=== PATIENT | female | born 1960 | race Caucasian/White ===

== ENCOUNTER 2023-04-24 15:05 | Emergency (ER) | payer BC, SELFPAY ==
[2023-04-24] VITALS (46 sets, daily range): BP systolic 93–144; BP diastolic 55–95; PULSE 73–92; RESP 14–24; TEMP 36.7–37.4; O2SAT 98–100
--- NOTE | ~2023-04-24 | XR_ITS ---
EXAM: XR foot RT min 3V DATE: 04/24/2023 19:38 HISTORY: infection, SWELLING, DRAINAGE . COMPARISON: None available. FINDINGS: Normal mineralization. No fracture or dislocation. No lytic or blastic lesion. Moderate sc attered degenerative change, mild Achilles and plantar enthesopathy. No erosion or periosteal change. Forefoot soft tissue swelling. IMPRESSION: No radiographic evidence of osteomyelitis. Reviewed, dictated and finalized at location K.
[2023-04-24 18:31] LABS: Hematocrit 42.8 % (37.0-47.0); Hemoglobin 14.6 g/dL (12.0-15.0); Mean Corpuscular HGB Conc 34.1 g/dl (32-36); Mean Corpuscular Hemoglobin 31.5 pg (26-34); Mean Corpuscular Volume 92.2 fl (80-100); Mean Platelet Volume 10.9 fl (7.4-10.4); Platelet Count Result 290 k/mm3 (150-375); Red Blood Count 4.64 M/mm3 (4.2-5.4); Red Cell Distribution Width 12.8 % (11.5-14.5); White Blood Count 23.1 K/mm3 (4.5-10.0)
[2023-04-24 18:39] LABS: Alanine Aminotransferase 22 U/L (6-35); Alkaline Phosphatase 96 U/L (38-126); Anion Gap 19 mmol/L (8-16); Aspartate Amino Transferase 25 U/L (14-36); Bilirubin,Total 1.6 mg/dL (0.2-1.3); Blood Urea Nitrogen 39 mg/dL (7-17); Calcium 9.2 mg/dL (8.4-10.2); Carbon Dioxide 18 mmol/L (22-30); Chloride 90 mmol/L (98-107); Estimated Glomerular Filt Rate 50; Glucose 259 mg/dL (65-110); Potassium 4.4 mmol/L (3.4-5.0); Sodium 127 mmol/L (137-145)
[2023-04-24 19:01] LABS: Lactic Acid Reflex 2.5 mmol/L (0.7-2.0)
--- NOTE | 2023-04-24 19:03 | ED.LOWEXIN ---
HPI - Extremity Injury (Lower) General Chief Complaint: Extremity Injury, Lower Stated Complaint: foot infection Time Seen by Provider: 04/24/23 18:49 History of Present Illness HPI Narrative: Patient is a 62-year-old female with history of diabetes here with a foot wound. Family notes that about a week ago they started noting her right foot was becoming red and she was complaining of pain. Patient's family notes that over the past 1 week it seems to have worsened. Today she finally agreed to going to her primary care's office where they took a look at her foot and referred her to the emergency department. They do note draining from the foot, redness and swelling. She denies fever or chills. She notes that pain is mild and only present when you manipulate the foot or apply a large amount of pressure to the wound. No known trauma to the foot. Related Data Home Medications Medication Instructions Recorded Confirmed atorvastatin 10 mg tablet 10 mg PO DAILY 11/20/22 11/20/22 dapagliflozin propanediol 5 mg 5 mg PO DAILY 11/20/22 11/20/22 tablet indapamide 2.5 mg tablet 2.5 mg PO DAILY 11/20/22 11/20/22 lisinopril 20 mg tablet 20 mg PO DAILY 11/20/22 11/20/22 metformin 500 mg tablet 500 mg PO BID 11/20/22 11/20/22 metoprolol succinate 100 mg 100 mg PO DAILY 11/20/22 11/20/22 tablet,extended release 24 hr prednisolone acetate 1 % eye 1 drp RIGHT EYE Q12H 11/20/22 11/20/22 drops,suspension Allergies Allergy/AdvReac Type Severity Reaction Status Date / Time No Known Allergies Allergy Unverified 04/24/23 14:46 Review of Systems Review of Systems: All systems reviewed & are unremarkable except as noted in HPI and below PMFSH Past Medical History Medical History Essential (primary) hypertension Hyperlipidemia 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 Social History Social History Smoking status: Never smoker Alcohol intake: never Substance use: never Substance use type: does not use Lack of Transportation: No Lack of Food: Never True Current Housing: I Have Housing Concerned About Future Housing: No Difficulty Paying Gas/Electric Bills: No Difficulty Paying for Meds: No Currently Unemployed: No Difficulty w/ Childcare or Family Care: No Living arrangements: with family Occupation/Education: occupation Gender identity (if verbalized by the patient): Female Sexual Orientation (if Verbalized by the Patient): Straight or Heterosexual Spiritual care concerns: No Exam Narrative: GENERAL: Well-appearing, well-nourished, and in no acute distress. HEAD: Normocephalic, atraumatic. EYES: PERRLA and EOMI. ENT: Nares clear. Mucous membranes moist. NECK: Supple. CHEST: Clear to auscultation. No respiratory distress. HEART: Regular rate and rhythm. Normal peripheral pulses. ABDOMEN: Soft, nontender, nondistended. EXTREMITIES: Normal range of motion. Edema and erythema extending to the ankle through the entire foot on the right side. 3 cm circular wound present to mid dorsum of the right foot with serosanguineous yellow-colored drainage. Purulence present between toe 3 and 4. Darkened discoloration present for toe 4. SKIN: Warm, dry, no rash. NEURO: No focal deficits. Alert and oriented x3. PSYCH: Normal mood and affect. Course Course Emergency Course: Chart review performed. Patient reportedly here for foot infection. Patient seen evaluated, concern for cellulitis with open wound over the dorsum of the right foot. She does have a dusky toe present on toe 4. Will start on antibiotics, told to remain NPO for now. Advised that she may require transfer. Spoke with Dr. Neff, recommends discussion with General surgery. Will speak with pre certification specialist general surgery. Will work on transfer, family agreeable to any site. Patient accepted for transf
[2023-04-24 19:29] LABS: Band Neutrophils Percent 1 % (0-6); Lymphocytes Absolute Manual 0.23 K/mm3 (1.1-4.5); Monocytes Absolute Manual 1.84 K/mm3 (0.1-0.90); Monocytes Percent Manual 8 % (3-9); Neutrophils Absolute Manual 21.02 K/mm3 (1.7-7.2); Neutrophils Percent Manual 90 % (46-73); Platelet Estimate Adequate (Adequate); Schistocytes None Seen (NORMAL); Total Cells Counted 100
[2023-04-24 19:32] LABS: Erythrocyte Sedimentation Rate 31 mm/hr (0-20)
[2023-04-24] MEDS: CEFEPIME 2 GM/NS 50 ML 2 GM/50 ML BAG IVPB (19:37)
[2023-04-24 19:46] LABS: CRP 43.2 mg/dL (<1.0)
[2023-04-24 19:57] LABS: Hemoglobin A1C 8.6 % (<5.7)
[2023-04-24] MEDS: LACTATED RINGERS 1,000 ML 999 ML IV CONT (21:20)
--- NOTE | 2023-04-24 21:28 | PC.NURSE ---
Report given to KENIA Man at [facility]. Room 515
[2023-04-24 21:44] LABS: Reflex Lactic Acid Yes or No Add Lactic
--- NOTE | 2023-04-24 22:26 | PC.NURSE ---
Large golf ball sized diabetic ulcer to top of right foot, and smaller quarter sized ulcer to bottom of foot near fourth toe.
[2023-04-24 22:37] LABS: Lactic Acid 3.1 mmol/L (0.7-2.0)
[2023-04-25] VITALS: PULSE 79; RESP 18
[2023-04-25 00:01] VITALS: BP 136/71; PULSE 78; RESP 18
== END 2023-04-25 00:18 | disposition short-term general hospital (02) ==
PROVIDERS: Physician Assistant; Emergency Provider Student in an Organized Health Care Education/Training Program; PCP Family Medicine
DX: E11.628 Type 2 diabetes mellitus with other skin complications (principal); L03.115 Cellulitis of right lower limb; L98.8 Other specified disorders of the skin and subcutaneous tissue; D72.829 Elevated white blood cell count, unspecified; I10 Essential (primary) hypertension; E11.3519 Type 2 diabetes mellitus with proliferative diabetic retinopathy with macular edema, unspecified eye; E78.5 Hyperlipidemia, unspecified; Z79.84 Long term (current) use of oral hypoglycemic drugs
CPT/HCPCS: 36415; 73630; 80053; 83036; 83605; 85025; 85652; 86140; 87040; 96365; 96366; 96367; 99285; J0692; J3370; J7120

== ENCOUNTER 2023-06-07 15:28 | Emergency (ER) | payer BC, SELFPAY ==
--- NOTE | ~2023-06-07 | XR_ITS ---
EXAMINATION: XR chest PICC line DATE: 06/07/2023 18:10 INDICATION: PICC line assessment TECHNIQUE: frontal view of the chest was obtained. COMPARISON: None FINDINGS: Right upper extremity peripherally inserted central venous catheter (PICC) tip at the cavoatrial tamela ction. No focal airspace opacities, pulmonary edema, pleural effusion or pneumothorax. The cardiomedi astinal silhouette is within normal limits for AP technique. Visualized bones and soft tissues are un remarkable. IMPRESSION: 1. Right PICC line tip at the superior cavoatrial junction. No acute cardiopulmonary disease. Reviewed, dictated and finalized at location A. ASSESSOR IMPRESSION: 1. Right PICC line tip at the superior cavoatrial junction. No acute cardiopulm onary disease.
[2023-06-07 15:42] VITALS: BP 119/88; PULSE 87; RESP 16; TEMP 37.1; O2SAT 100
--- NOTE | 2023-06-07 17:55 | PC.NURSE ---
Patient to the ED with complaints of PICC line not working.
--- NOTE | 2023-06-07 19:45 | ED.GENADULT ---
HPI - General Adult General Chief complaint: Unspecified Stated complaint: picc line problem Time Seen by Provider: 06/07/23 19:10 Source: patient and family Limitations: no limitations History of Present Illness HPI narrative: Patient is a 63-year-old female presents to the emergency department for PICC line dysfunction. Patient states she has home healthcare nurse regularly in his own antibiotics for a right foot infection through the PICC line and she is getting his antibiotics every 6 hours and received a dose at midnight in addition to 6:00 a.m. however she missed her noon dose as they were unable to flush the PICC line prompting her to come in for further evaluation. Patient has been on antibiotics for the past 1 week and her foot infection appears to be improving the patient is fine with Podiatry your patient so concern is the dysfunction of the PICC line. Significant other notes that he forgot to put heparin and after using it most recently. patient otherwise denies any complaints at this time, knows that she feels well, denies chest pain, shortness of breath, cough, fever. Patient is having her right foot infection evaluated daily by her home healthcare nurse and is overall improving. Related Data Home Medications Medication Instructions Recorded Confirmed atorvastatin 10 mg tablet 10 mg PO DAILY 11/20/22 05/13/23 dapagliflozin propanediol 5 mg 5 mg PO DAILY 11/20/22 05/13/23 tablet indapamide 2.5 mg tablet 2.5 mg PO DAILY 11/20/22 05/13/23 lisinopril 20 mg tablet 20 mg PO DAILY 11/20/22 05/13/23 metformin 500 mg tablet 500 mg PO BID 11/20/22 05/13/23 metoprolol succinate 100 mg 100 mg PO DAILY 11/20/22 05/13/23 tablet,extended release 24 hr prednisolone acetate 1 % eye 1 drp RIGHT EYE Q12H 11/20/22 05/13/23 drops,suspension Allergies Allergy/AdvReac Type Severity Reaction Status Date / Time No Known Allergies Allergy Verified 05/13/23 14:13 Review of Systems Review of Systems: A 10 system review of systems was completed on the patient and is negative except for what is stated in the HPI. Nursing and ancillary documentation was reviewed. 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 Social History Social History Smoking status: Never smoker Alcohol intake: never Substance use: never Substance use type: does not use Lack of Transportation: No Lack of Food: Never True Current Housing: I Have Housing Concerned About Future Housing: No Difficulty Paying Gas/Electric Bills: No Difficulty Paying for Meds: No Currently Unemployed: No Difficulty w/ Childcare or Family Care: No Living arrangements: with family Occupation/Education: occupation Gender identity (if verbalized by the patient): Female Sexual Orientation (if Verbalized by the Patient): Straight or Heterosexual Spiritual care concerns: No Comments At time of signature, I have reviewed and agree with nursing past medical, surgical, social and family history unless otherwise noted. Please see the nursing chart for further information. There is no relevant family history pertinent to the presenting complaint. Exam Narrative: CONST: No acute distress. Well nourished. HENMT: Head is normocephalic and atraumatic. EYES: No conjunctival icterus, injection, or pallor. NECK: No JVD. RESP: Able to speak in full sentences. Normal respiratory effort. CTAB. CARDIO: Regular rate. Regular rhythm. 2+ radial pulses bilaterally. Right upper extremity PICC line in place without surrounding erythema and no tenderness to palpation.. GI: Nondistended. SKIN: No rashes or lesions noted on exposed skin. NEURO: Oriented x3. EXTREM/MSK/BACK: Moves all [address] on r
--- NOTE | 2023-06-07 19:50 | PC.NURSE ---
This RN was able to flush patient's PICC line. Patient's family states he might have forgotten to flush with heparin after patient's antibiotic dose this morning. Patient and family educated on importance of heparin locking the PICC line after use.
[2023-06-07 20:11] VITALS: BP 136/90; PULSE 93; RESP 18; TEMP 37; O2SAT 98
== END 2023-06-07 20:13 | disposition home or self-care (01) ==
PROVIDERS: Emergency Provider Student in an Organized Health Care Education/Training Program; PCP Family Medicine
DX: Z45.2 Encounter for adjustment and management of vascular access device (principal); I10 Essential (primary) hypertension; E78.5 Hyperlipidemia, unspecified; E11.9 Type 2 diabetes mellitus without complications
CPT/HCPCS: 99283; J1642

== ENCOUNTER 2024-10-18 12:49 | Inpatient (IN) | payer BC, SELFPAY ==
[2024-10-18] VITALS (46 sets, daily range): BP systolic 81–144; BP diastolic 59–91; PULSE 92–107; RESP 12–22; TEMP 36–37.2; O2SAT 99–100; BMI 25.9
--- NOTE | ~2024-10-18 | US_ITS ---
EXAMINATION: US arterial duplex LE DATE: 10/20/2024 17:08 INDICATION: Peripheral vascular disease with foot wounds TECHNIQUE: Multiple grayscale and Doppler ultrasound images of the arteries at the bilateral lower li mbs were obtained. COMPARISON: None FINDINGS: Normal triphasic waveforms with brisk systolic upstrokes at the right common femoral, profunda femora l, superficial femoral, popliteal and peroneal arteries. There are systolic upstrokes at the right po sterior tibial artery. No evident vascular flow identified in the distal right posterior tibial arter y or right dorsalis pedis artery. Normal triphasic waveforms with brisk systolic upstrokes at the left common femoral, profunda femoral , superficial femoral, popliteal, posterior tibial and dorsalis pedis arteries. IMPRESSION: 1. No discernible flow on color Doppler at the right posterior tibial and dorsalis pedis arteries. Tr iphasic waveforms with brisk systolic upstrokes at the remaining arteries in the right lower limb. 2. Triphasic waveforms with brisk systolic upstrokes throughout the arteries of the left lower limb. Reviewed, dictated and finalized at location A. IMPRESSION: 1. No discernible flow on color Doppler at the right posterior tibial and dorsa lis pedis arteries. Triphasic waveforms with brisk systolic upstrokes at the re maining arteries in the right lower limb. 2. Triphasic waveforms with brisk systolic upstrokes throughout the arteries of the left lower limb.
--- NOTE | ~2024-10-18 | US_ITS ---
EXAMINATION:US venous doppler LE BI INDICATION:Pulmonary embolism TECHNIQUE: Multiple grayscale, color flow and Doppler images of the right and left lower extremity de ep venous systems were obtained and reviewed. COMPARISON:No prior studies for comparison. FINDINGS: The common femoral, superficial femoral and popliteal veins demonstrate normal respiratory variation, augmentation and compressibility. Color flow is also seen within the posterior tibial, pe roneal, greater saphenous and profunda veins. IMPRESSION: 1: No lower extremity deep venous thrombosis. Reviewed, dictated and finalized at location A.
--- NOTE | ~2024-10-18 | CT_ITS ---
EXAMINATION: CT brain wo con DATE: 10/18/2024 14:29 INDICATION: sepsis, ams . TECHNIQUE: Computed tomography (CT) of the head was performed with intravenous contrast. The mA was a djusted according to patient size. Iterative reconstruction technique was employed. The dose-length p roduct was 681.00 mGy-cm. COMPARISON: None. FINDINGS: No acute intracranial hemorrhage or extra-axial fluid collection. No hydrocephalus, mass, or herniation. No acute ischemic infarct. Unremarkable dural venous sinus attenuation. No acute osseous abnormality. Right mastoid opacification, the remaining aerated spaces are clear. Moderate atrophy and chronic white matter change. Atherosclerotic intracranial calcification. Bilater al lens replacements. Focal old right cerebellar infarct. Left thalamic and bilateral basal ganglia l acunar infarcts IMPRESSION: No acute intracranial process. Right mastoid opacification, may represent effusion versus exudate. Correlate for clinical findings o f mastoiditis. Reviewed, dictated and finalized at location K. IMPRESSION: No acute intracranial process. Right mastoid opacification, may represent effusion versus exudate. Correlate f or clinical findings of mastoiditis.
--- NOTE | ~2024-10-18 | XR_ITS ---
EXAMINATION: XR chest 1V portable Exam Date/Time: 10/18/2024 13:50 CDT HISTORY: ams, sepsis Comparison: 06/07/2023. RESULT: Lines, tubes, and devices: None. Lungs and pleura: Clear. Cardiomediastinal silhouette: Stable. Other: No acute osseous or upper abdominal finding. IMPRESSION: No acute cardiopulmonary process. Reviewed, dictated and finalized at location K.
--- NOTE | ~2024-10-18 | US_ITS ---
EXAMINATION: US abdomen limited DATE: 10/18/2024 16:33 INDICATION: Abnormal findings on prior CT. TECHNIQUE: Multiple grayscale and Doppler ultrasound images of limited portions of the abdomen were o btained. COMPARISON: CT abdomen pelvis, same date. FINDINGS: Pancreas poorly visualized. The liver is normal with normal echogenicity and echotexture. N o surface nodularity. Normal hepatopetal flow in the main portal vein. Irregular appearing echogenic material in the dependent gallbladder, likely representing sludge. Gallbladder wall thickening to 4 m m. The common bile duct measures 3 mm. There was no sonographic Cueva sign. IMPRESSION: Biliary sludge with gallbladder wall thickening. Negative sonographic Cueva sign. Reviewed, dictated and finalized at location K. IMPRESSION: Biliary sludge with gallbladder wall thickening. Negative sonographic Cueva si gn.
--- NOTE | ~2024-10-18 | XR_ITS ---
EXAM: XR foot LT 2V DATE: 10/18/2024 18:33 HISTORY: foot wounds/ulcerations . COMPARISON: 05/04/2024. FINDINGS: Subluxation/dislocation at the second MTP joint. Extensive erosion of the distal fourth an d fifth metatarsals and proximal aspect of the fourth proximal phalanx. Periarticular erosions at the second and third MTP joints. Scattered degenerative changes. Forefoot soft tissue swelling. IMPRESSION: Findings suspicious for extensive forefoot osteomyelitis and septic arthritis involving the second th rough fourth rays. Reviewed, dictated and finalized at location K. IMPRESSION: Findings suspicious for extensive forefoot osteomyelitis and septic arthritis i nvolving the second through fourth rays.
--- NOTE | ~2024-10-18 | CT_ITS ---
EXAMINATION: CT cervical spine wo con DATE: 10/18/2024 14:29 INDICATION: sepsis, ams TECHNIQUE: Computed tomography (CT) of the cervical spine was performed without intravenous contrast. Automated exposure control and iterative reconstruction technique were employed. The dose-length pro duct was 261.44 mGy-cm. COMPARISON: None. FINDINGS: Vertebral Body Alignment: Intact. Craniocervical and atlantoaxial alignment: Moderate degenerative change. Alignment intact. Osseous structures/fracture: No evidence of a lytic or blastic process in the visualized spine. No e vidence of acute fracture. Butterfly vertebral bodies at multiple levels. Cervical soft tissues: The paraspinal soft tissues planes are maintained. Degenerative changes: Degenerative changes, without severe neural foraminal or central canal narrowin g. IMPRESSION: No acute fracture or traumatic malalignment in the cervical spine. Reviewed, dictated and finalized at location K.
--- NOTE | ~2024-10-18 | CT_ITS ---
EXAMINATION: CTA chest PE abdomen pel DATE: 10/18/2024 14:31 INDICATION: tachycardic, septic; ams, covered in stool TECHNIQUE: Computed tomography angiography (CTA) of the chest was performed with 100 mL Omnipaque-350 intravenous contrast timed to evaluate the pulmonary arteries, followed by portal venous phase imagi ng of the abdomen and pelvis. Coronal maximum intensity projection 3D-reconstructions were created by the technologist. The dose-length product (DLP) was 1416.42 mGy-cm. Automated exposure control and i terative reconstruction technique were employed. COMPARISON: None. FINDINGS: CHEST: Lung parenchyma and airways: Clear. Pleura: Unremarkable. Thoracic inlet, axillae and chest wall: No thyroid or soft tissue mass. Thoracic aorta: The ascending thoracic aorta measures up to 4.2 cm in diameter. Moderate atherosclero tic calcifications. Mediastinum: Normal. Patulous esophagus, with moderate mid and lower esophageal wall thickening. Heart and pericardium: Cardiomegaly. Coronary artery calcifications: Absent. Thoracic bones: No acute osseous finding. Butterfly vertebral bodies at multiple levels. Pulmonary arteries: Study quality: Adequate. No acute pulmonary emboli detected. Thin, nonocclusive e ccentric weblike defects in the right interlobar pulmonary artery. ABDOMEN/PELVIS: Liver: Normal. Biliary/Gallbladder: Gallbladder is distended, with wall hyperemia. No bile duct dilation. Pancreas: No mass or duct dilation. Spleen: Peripheral, somewhat wedge-shaped perfusion defects in the inferior spleen. Adrenals:No mass. Kidneys: No suspicious mass, obstructing stone, or hydronephrosis. 2.0 cm indeterminate density left upper pole lesion. GI tract: Moderate gastric wall edema. The rectum is dilated to 5.5 cm by formed stool, without surro unding inflammatory change or wall thickening. No small bowel dilation. Appendix is not confidently v isualized. No pericecal inflammatory change. Mesentery/Peritoneum: No ascites, mass, or free air. Retroperitoneum: No mass. Atherosclerotic calcifications of intra-abdominal arterial vessels. Pelvis: Normal ovaries and uterus. Zuniga catheter terminates in the urinary bladder. Moderate urinary bladder wall thickening and mucosal enhancement.. Soft Tissues: Soft tissues and body wall unremarkable. Abdominopelvic bones: No acute osseous finding. 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 IMPRESSION: No CT evidence of acute pulmonary embolus. Chronic pulmonary embolism in the right interlobar pulmonary artery. Moderate esophagitis. Ascending thoracic aortic ectasia, measuring up to 4.2 cm. Mild gastritis. Peripheral, somewhat wedge-shaped splenic hypodensities may represent splenic infarcts. No embolic so urce is detected. Indeterminate 2.0 cm left upper pole renal lesion, recommend nonemergent, outpatient CT or MRI with a nd without contrast for further evaluation. Gallbladder hydrops with wall hyperemia, correlate with biliary labs and symptoms of right upper quad rant pain. Cystitis. Possible mild fecal impaction. Reviewed, dictated and finalized at location K. IMPRESSION: No CT evidence of acute pulmonary embolus. Chronic pulmonary embolism in the right interlobar pulmonary artery. Moderate esophagitis. Ascending thoracic aortic ectasia, measuring up to 4.2 cm. Mild gastritis. Peripheral, somewhat wedge-shaped splenic hypodensities may represent splenic i nfarcts. No embolic source is detected. Indeterminate 2.0 cm left upper pole renal lesion, recommend nonemergent, outpa tient CT or MRI with and without contrast for further evaluation. Gallbladder hydrops with wall hyperemia, correlate with biliary labs and sympto ms of right upper quadrant pain. Cystitis. Possible mild fecal impaction.
--- NOTE | ~2024-10-18 | CT_ITS ---
CTA brain Ordering provider: Martín Gilman PA-C History: . ams . Comparison: 10/08/[address] brain. Technique: CT angiogram head was performed following timed intravenous injection of contrast. Thin sl ice axial images and reformatted coronal images were obtained. Three dimensional reformatted images o f the brain were also obtained using a [employer] workstation. DLP: 1048 mGy-cm No CTA examination of the neck was included on the examination. FINDINGS: HEAD: --ANTERIOR AND MIDDLE CEREBRAL ARTERIES AND BRANCHES: Normal caliber and contour. --INTERNAL CAROTID ARTERIES: The right internal carotid artery is diminutive in comparison to the lef t. Moderate atheromatous disease bilaterally resulting in mild stenosis but no occlusion. --BASILAR ARTERY AND BRANCHES: Normal caliber and contour. No atheromatous disease. --POSTERIOR CEREBRAL ARTERIES: Normal caliber and contour --POSTERIOR COMMUNICATING ARTERIES: Not well visualized likely related to congenital absence or small size. --ANEURYSM: None visualized. --BRAIN: The ventricles are enlarged. The dilatation of the ventricles is proportional to the degree of sulcal prominence, not uncommon in the senescent brain. Decreased attenuation is identified within the periventricular white matter, likely secondary to micr ovascular ischemic disease, advanced disease in a patient of this age. There is no mass, mass effect or midline shift. There is no abnormal extra-axial fluid collection or intracranial hemorrhage. Visualized paranasal sinuses are clear. The mastoid air cells are well aerated. No acute displaced fractures within the overlying cranium. NECK: No CTA of the neck was requested IMPRESSION: Moderate calcified atheromatous disease is identified within the bilateral intracranial internal falk tid arteries, resulting in mild stenosis without occlusion. Reviewed, dictated and finalized at location A. IMPRESSION: Moderate calcified atheromatous disease is identified within the bilateral intr acranial internal carotid arteries, resulting in mild stenosis without occlusio n.
--- NOTE | ~2024-10-18 | XR_ITS ---
EXAMINATION: XR foot RT 2V DATE: 10/19/2024 13:53 INDICATION: Right foot wounds TECHNIQUE: Dorsoplantar and lateral views of the right foot were obtained. COMPARISON: 05/04/2024 FINDINGS: Deformities at the third and fourth toes with chronic widening of the third and fourth metatarsophala ngeal joints and chronic osteolysis with peripheral corticated margins at the heads of the third and fourth metatarsals and at the third and fourth proximal phalanges likely sequela of chronic osteomyel itis. Bone alignment is normal. No new erosions or osteolysis. Mild polyarticular osteoarthritis at m ultiple joints in the right mid and forefoot. Small Achilles and plantar calcaneal spurs. Tiny foreig n body along the skin surface at the plantar aspect of the base of the right second toe. Diffuse mild soft tissue swelling. No soft tissue gas. IMPRESSION: 1. Deformities with chronic osteolysis centered at the right third and fourth metatarsophalangeal jeanette nts consistent with likely sequela of chronic tonsillitis. No evident acute osteomyelitis or other ac kristopher osseous abnormality. Joints. 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 3. Tiny foreign body at a near the skin surface at the plantar aspect of the base of the second toe. Reviewed, dictated and finalized at location B. IMPRESSION: 1. Deformities with chronic osteolysis centered at the right third and fourth m etatarsophalangeal joints consistent with likely sequela of chronic tonsillitis . No evident acute osteomyelitis or other acute osseous abnormality. Joints. Mi ld polyarticular osteoarthritis throughout the right foot. 3. Tiny foreign body at a near the skin surface at the plantar aspect of the ba se of the second toe.
--- NOTE | 2024-10-18 12:55 | ECG_ITS ---
Test Date: 2024-10-18 13:42:54 Measurements Intervals [place] Rate: 98 P: 41 RI: 166 QRS: -27 QRSD: 90 T: 32 QT: 373 QTc: 478 Interpretive Statements SINUS RHYTHM BORDERLINE LEFT AXIS DEVIATION [QRS AXIS < -20] NONSPECIFIC ST ABNORMALITY ARTIFACT LIMITS INTERPRETATION ABNORMAL ECG Electronically Signed On 10-18-2024 14:26:50 CDT by David Toro M.D.
--- OUTSIDE RECORDS SUMMARY | 2024-10-18 12:56 | XMS_ITS | Clinical Summary ---
Author Organization [facility] Address [address] [place] [address] Care Team Providers Care Director Corporate Communications Name Role Phone Cornelio Valdez MD Primary Care Provider [phone] [facility],non-owned Affiliates and Associated Physician Practices is amultiple site organization consisting of ambulatory clinics and hospital sitesin [place], [place], [place] and [place]. This disclosure is being madepursuant to the Care Everywhere program and may not contain all information available regarding this patient. Last updated 18.[facility] Allergies No known active allergies Medications * Be aware that medications may not be up to date on this document. Alwaysverify current medications with the patient. Medication Sig Dispensed Refills Start Date End Date Status atorvastatin (Lipitor) 10 MG tabletIndications:Hyp erlipidemia Take 1 tablet by mouth at bedtime Reasons: High Amount of Fats in the Blood Active dapagliflozin propanediol (Farxiga) 5 MG tabletIndications:Typ e 2 Diabetes Mellitus Take 1 tablet by mouth every morning Reasons: Type 2 Diabetes Active indapamide (Lozol) 2.5 MG tabletIndications:Hyp ertension Take 1 tablet by mouth once daily Reasons: High Blood Pressure Disorder Active lisinopril (Prinivil; Zestril) 20 MG tabletIndications:Hyp ertension Take 1 tablet by mouth once daily Reasons: High Blood Pressure Disorder Active metFORMIN (Glucophage) 500 MG tabletIndications:Typ e 2 Diabetes Mellitus Take 1 (one) tablet by mouth 2 times daily with morning and evening meal Reasons: Type 2 Diabetes Active metoprolol succinate XL 24hr (Toprol XL) 50 MG tabletIndications:Hyp ertension Take 2 (two) tablets by mouth once daily Reasons: High Blood Pressure Disorder 07/22/2020 Active prednisoLONE acetate (prednisoLONE Acetate P-F) 1 % ophthalmic suspension Instill 1 (one) drop into right eye 2 times daily Active metroNIDAZOLE (Flagyl) 500 MG tabletIndications:INF ECTION Take 500 mg by mouth 3 times daily. RX # [id number] Indications: INFECTION 07/01/2023 Active cephalexin (Keflex) 500 MG capsuleIndications:Corbin ne Infection Take 500 mg by mouth 3 times daily. Indications: Bone Infection 07/11/2023 Active Active Problems Problem Noted Date Diagnosed Date Cellulitis of right foot 05/27/2023 Right foot infection 04/24/2023 Immunizations Name Administration Dates Next Due INFLUENZA VACCINE, QUADR. (F LUZONE; FLULAVAL; FLUARIX; AFLURIA QUADRIVALENT; 6MO+), 0.5 ML (IIV4) 04/29/2023 Social History Tobacco Use Types Packs/Day Years Used Date Smoking Tobacco: Never Smokeless Tobacco: Never Tobacco Cessation:Counseling Given: Not Answered Alcohol Use Standard Drinks/Week Comments Not Currently 0 (1 standard drink = 0.6 oz pur e alcohol) OASIS D0700: Social Isolation Answer Da te Recorded Frequency of experiencing loneliness or isolatio n Never 08/20/2023 OASIS A1250: Transportation Answer Date Recorded Lack of Transportation (Medical) No 08/20/2023 Lack of Transportation (Non-Medical) No 08/20/2023 Patient Unable or Declines to Respond No 08/20/2023 OASIS B1300: Health Literacy Answer Torsten e Recorded Frequency of needing help to read materials from doctor or pharmacy Sometimes 08/20/2023 AUDIT-C Answer Date Recorded Q1: How often do you have a drink containing alc ohol? Monthly or less 05/27/2023 Q2: How many drinks containi ng alcohol do you have on a typical day when you are drinking? 1 or 2 05/27/2023 Q3: How often do you have si x or more drinks on one occasion? Never 05/27/2023 Overall Financial Resource Strain (CARDIA) Answe r Date Recorded How hard is it for you to pa y for the very basics like food, housing, medical care, and heating? Not hard at all 05/28/2023 [facility] [place] [facility] - Occupational Stress Questionnaire Answer Date Recorded Do you feel stress - tense, restless, nervous, or anxious, or unable to sleep at night because your mind is troubled all the time - these days? Only a little 05/28/2023 Hunger Vital Sign Answer Date Recorded Within the past 12 months, y ou worried that your food would run out before you got the money to buy more. Never true 05/28/20 23 Within the past 12 months, t he food you bought just didn't last and you didn't have money to get more. Never true 05/28/2023 PRAPARE - Transportation Answer Date Re corded In the past 12 months, has l ack of transportation kept you from medical appointments or from getting medications? No 01/2023 In the past 12 months, has l ack of transportation kept you from meetings, work, or from getting things needed for daily living? No 05/28/2023 Housing Stability Vital Sign Answer Torsten e Recorded In the last 12 months, was t here a time when you were not able to pay the mortgage or rent on time? No 05/28/2023 In the last 12 months, how many places have you lived? 1 05/28/2023 In the last 12 months, was t here a time when you did not have a steady place to sleep or slept in a usp (including now)? No 05/28/2023 Sex and Gender Information Value Date Recorded Sex Assigned at Not on file Gender Identity Not on file Sexual Orientation Not on file Last Filed Vital Signs Vital Sign Reading Time Taken Comments Blood Pressure 124/72 08/16/2023 10:03 AM SHOT BAGGER Pulse 76 08/16/2023 10:03 AM SHOT BAGGER Temperature 36.4 C (97.5 F) 08/16/2023 10:03 AM SHOT BAGGER Respiratory Rate 16 08/16/2023 10:03 AM SHOT BAGGER Oxygen Saturation 99% 08/16/2023 10:03 AM SHOT BAGGER Inhaled Oxygen Concentration - - Weight 83.9 kg (185 lb) 05/10/2023 1:03 PM CDT Height 149.9 cm (4' 11.02 ) 05/28/2023 4:[address] Body Mass Index 37.37 05/10/2023 1:03 PM CDT Plan of Treatment Health Maintenance Due Date Last Done Comments COLOGUARD (AGES 45-75) - COL ON CA SCREENING 1960 COLON MONITORING 1960 COLONOSCOPY - COLON CA SCREENING 1960 CT COLONOGRAPHY - COLON CA SCREENING 1960 Colorectal Cancer Screening 1960 FIT - COLON CA SCREENING 1960 FLEX SIG - COLON CA SCREENING 1960 MAMMOGRAM 1960 PAP SMEAR 1960 HIV SCREENING 1975 HEPATITIS C SCREENING 06/01/1978 DTAP/TDAP/TD VACCINES (1 - Tdap) 1979 PNEUMOCOCCAL VACCINE 50+ (1 of 1 - PCV) 2010 ZOSTER VACCINE (1 of 2) 2010 Respiratory Syncytial Virus (RSV) Vaccine Pt: or over 60 yrs (1 - Risk 60-74 years 1-dose series) 2020 COVID-19 VACCINE (4 - 2023-2 5 season) 2024 06/28/2021, 11/09/2020, 10/12/2020 INFLUENZA VACCINE (#1) 2024 , 04/26/2022, 06/09/2020 DEPRESSION SCREENING 07/22/2024 HEPATITIS B VACCINE Aged Out No longe r eligible based on patient's age to complete this topic HIB VACCINE Aged Out No longer eligi ble based on patient's age to complete this topic HPV VACCINE Aged Out No longer eligi ble based on patient's age to complete this topic MENINGOCOCCAL (Group B) VACCINE SHARED DECISION-MAKING Aged Out No longer eligible based on patient's age to complete this topic MENINGOCOCCAL GROUPS A/C/Y/W VACCINE Aged Out No longer eligible b ased on patient's age to complete this topic PNEUMOCOCCAL VACCINE Aged Out No long er eligible based on patient's age to complete this topic Medical Devices Implanted Type Area Locket Maker Device Identifier Shelf Expiration Date Model / Serial / Lot Graft Skn Surgiclose 38sq Cm Nehemiah Omega3 Implanted:Qty: 1 on 05/29/2023 by Glenda Ceron DPM at [facility] Right: Foot [employer] 08/22/2025 [id number] / / [id number] X Kerecis Omega3 Surgibind Fenestrated Implanted:Qty: 1 on 05/29/2023 by Glenda Ceron DPM at [facility] Right: Foot 11/19/2024 [id number] / / [id number] B Advance Directives * Full Code (Latest Code Status on File) Date Activated Date Inactivated Comments 05/27/2023 8:46 PM 05/31/2023 6:48 PM * Full Code Date Activated Date Inactivated Comments 05/11/2023 3:39 PM 05/27/2023 5:44 PM To update t he patient's code status, place a code status order. Do not modify or discontinue any currently active code status orders. * Full Code Date Activated Date Inactivated Comments 04/25/2023 3:33 AM 05/08/2023 10:50 PM Care Teams Director Corporate Communications Relationship Specialty Start Date End Date Cornelio Valdez MD [address] [place] [id number] PCP - General Family Medicine 04/25/23
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
[2024-10-18] MEDS: SODIUM CHLORIDE 0.9% IV 1,000 ML 999 ML IV CONT ×2 (13:09→13:30)
[2024-10-18] MEDS: CEFEPIME 2 GM/NS 50 ML 2 GM/50 ML BAG IVPB (13:10)
[2024-10-18 13:26] LABS: Color Urine Light Yellow (Yellow)
[2024-10-18 13:27] LABS: Add Urine Microscopic? YES; Appearance Urine Turbid (Clear)
[2024-10-18 13:28] LABS: Amorphous Sediment Urine Heavy; Bacteria Urine Unable to determine /hpf; Mucus Urine Heavy /lpf; Squamous Epithelial Cell Urine Few /hpf (Few); WBC Urine >100 /hpf (0-3)
[2024-10-18 13:29] LABS: Triple Phosphate Crystal Urine Present /hpf
[2024-10-18 13:35] LABS: Basophils Absolute Auto 0.1 K/mm3 (0.0-0.1); Basophils Percent Auto 0.3 % (0.2-1.2); Eosinophils Absolute Auto 0.2 K/mm3 (0-0.3); Eosinophils Percent Auto 1.1 % (0-4.4); Hematocrit 40.5 % (37.0-47.0); Hemoglobin 12.2 g/dL (12.0-15.0); Immature Granulocyte Absolute 0.11 K/mm3 (0.00-0.031); Immature Granulocyte Percent A 0.7 % (0-0.5); Lymphocytes Absolute Auto 1.24 K/mm3 (0.9-3.2); Lymphocytes Percent Auto 8.2 % (18.3-44.2); Mean Corpuscular HGB Conc 30.1 g/dl (32-36); Mean Corpuscular Hemoglobin 22.2 pg (26-34); Mean Corpuscular Volume 73.8 fl (80-100); Mean Platelet Volume 9.3 fl (7.4-10.4); Monocytes Absolute Auto 0.8 K/mm3 (0.1-0.6); Monocytes Percent Auto 5.2 % (2.6-8.5); Neutrophils Absolute Auto 12.7 K/mm3 (1.3-6.7); Neutrophils Percent Auto 84.5 % (45.5-73.1); Platelet Count Result 500 k/mm3 (150-375); Red Blood Count 5.49 M/mm3 (4.2-5.4); Red Cell Distribution Width 18.2 % (11.5-14.5); White Blood Count 15.1 K/mm3 (4.5-10.0)
[2024-10-18 13:44] LABS: Lactic Acid Reflex 2.4 mmol/L (0.7-2.0)
[2024-10-18 13:46] LABS: Acetaminophen < 10 ug/mL (10-30); Ammonia < 9 umol/L (9-30); Creatine Kinase 57 U/L (30-135); Ethanol < 10 mg/dL (<10); Magnesium 2.2 mg/dL (1.6-2.3); Salicylate < 1.0 mg/dL (2-20)
[2024-10-18 13:46] LABS: Glucose Point of Care 142 mg/dl (65-105)
[2024-10-18 13:47] LABS: INR 1.3; Partial Thromboplastin Time 28.7 Seconds (22.3-36.8); Prothrombin Time 17.2 Seconds (11.1-14.7)
[2024-10-18 13:49] LABS: Alanine Aminotransferase 11 U/L (6-35); Albumin Level 3.4 g/dL (3.5-5.1); Alkaline Phosphatase 106 U/L (38-126); Anion Gap 13 mmol/L (4-12); Aspartate Amino Transferase 18 U/L (14-36); Bilirubin,Total 0.9 mg/dL (0.2-1.3); Blood Urea Nitrogen 26 mg/dL (7-17); Calcium 9.2 mg/dL (8.4-10.2); Carbon Dioxide 21 mmol/L (22-30); Chloride 100 mmol/L (98-107); Estimated CRCL calculation 50 ml/min; Estimated Glomerular Filt Rate > 60; Glucose 163 mg/dL (65-110); Lipase 313 U/L (23-300); Potassium 4.2 mmol/L (3.4-5.0); Sodium 134 mmol/L (137-145)
[2024-10-18 13:57] LABS: Troponin I < 0.012 ng/mL (0.000-0.034)
[2024-10-18 14:07] LABS: Crenated RBC 2+; Platelet Estimate Increased (Adequate); Schistocytes None Seen
[2024-10-18 14:10] LABS: CRP 19.1 mg/dL (<1.0)
[2024-10-18 14:29] LABS: Influenza A QL RT-PCR Negative (Negative); Influenza B QL RT-PCR Negative (Negative); RSV RNA, RT-PCR Negative (Negative); SARS-CoV-2 RNA PCR Negative (Negative)
[2024-10-18] MEDS: VANCOMYCIN 1,750 MG/NS 500 ML 1,750 MG/500 ML BAG 250 MG IVPB (14:33)
[2024-10-18 15:31] LABS: Reflex Lactic Acid Yes or No Add Lactic
[2024-10-18 16:04] LABS: Barbiturate Screen Urine Negative (Negative); Benzodiazepines Screen Urine Negative (Negative)
[2024-10-18] MEDS: PANTOPRAZOLE 40 MG TABLET PO (16:10)
[2024-10-18 16:18] LABS: Amphetamine Screen Urine Negative (Negative); Cannabinoid Screen Urine Negative (Negative); Cocaine Screen Urine Negative (Negative); Methadone Screen Urine Negative (Negative); Opiate Screen Urine Negative (Negative); Phencyclidine Screen Urine Negative (Negative)
[2024-10-18 17:15] LABS: Lactic Acid 1.6 mmol/L (0.7-2.0)
[2024-10-18 18:40] LABS: Hemoglobin A1C 8.2 % (<5.7)
--- NOTE | 2024-10-18 21:36 | ADMGEN ---
This patient, Ann Ovalles, was admitted to Medical Room 344-01. Patient/family oriented to hospital policies and general routines including ID bracelet, bed and alarms, visiting hours, pain management, procedures, bathroom and other care routines, personal items, smoking policy, room service/diet, and visiting hours. Information on how to activate the Rapid Response Team has been discussed. Patient/Family are encouraged to report perceived risks to care and to ask questions if they do not understand what they are told or what they should do.
[2024-10-18 21:45] LABS: Glucose Point of Care 127 mg/dl (65-105)
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
--- NOTE | 2024-10-18 22:25 | P.HP_ITS ---
H&P: HPI History of Present Illness Date/Time: 10/18/24 22:25 Chief Complaint: Weakness. Narrative: This is a 64-year-old female with type 2 diabetes mellitus, hypertension, hyperlipidemia, and significant hearing loss who presented to the emergency department via EMS for evaluation of weakness. She is a poor historian as she seems a bit confused and also due to her significant hearing loss. Her provides the vast majority of the following history which is supplemented via a review of her electronic medical records. states she has been the couch for over a month and has made no attempts to get up. She lies in her own excrement and urine which her cleans up when he can although he states that he works quite a bit. She has not tolerated any other intervention or care and she has not been eating or drinking much. She has lost ?quite a bit of weight.? It is unclear why she is doing this and her wonders if she has dementia. She has a significant wound on the bottom of her left foot and large areas of breakdown, mainly over the right flank which she will not let him touch. Prior to the last couple of months, she was reportedly ambulating and independent. She cannot give me any explanation and does not really offer any answers when asked direct questions. There are no reports of falls, fever, cough, congestion, or vomiting. The patient has not voiced any complaints to her or myself but she frequently asks when she can go home and if she can have something to drink. In the ED: Vital signs on arrival include a temperature of 97.1?, blood pressure 81/59, pulse 107, respiratory rate 15, SpO2 100% on room air. Labs are significant for WBC count of 15.1, hemoglobin 12.2, MCV 73.8, platelet 500, sodium 134, carbon dioxide 21, anion gap 13, BUN 26, creatinine 0.8, glucose 163, lactic acid 2.4, CRP 19.1, albumin 3.4, TSH 1.73. Urine was grossly mucoid making a urinalysis difficult. Heavy sediment and mucus were seen on microscopy as well as triple phosphate crystals. Urine drug screen was negative and alcohol level was undetectable. She tested negative for influenza, RSV, and COVID. Brain CT showed findings of old strokes, moderate atrophy and chronic white matter changes, and right mastoid opacification. Cervical spine CT was without acute findings. CT of the chest, abdomen, and pelvis showed a chronic pulmonary embolism in the right interlobar pulmonary artery, moderate esophagitis, ascending thoracic aortic ectasia, mild gastritis, possible splenic infarcts, indeterminate 2.0 cm left upper pole renal lesion, gallbladder hydrops with hyperemia, cystitis, possible mild fecal impaction. Right upper quadrant ultrasound showed biliary sludge with gallbladder wall thickening and negative sonographic Cueva sign. Left foot x-ray showed findings suspicious for extensive forefoot osteomyelitis and septic arthritis involving the 2nd through 4th rays. She received cefepime and vancomycin as well as an IV fluid bolus and she is being admitted in this setting for further treatment and evaluation. Review of Systems Review of Systems: Unable to be obtained accurately as she is a poor historian and very hard of hearing. 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 Code status: Full code. Smoking status: Never smoker Second hand tobacco smoke exposure: Yes Alcohol intake: never Substance use: never Substance use type: does not use Do You Feel Safe in your Home?: Yes Lack of Transportation: No Lack of Food: Never True Current Housing: I Have Housing Concerned About Future Housing: No Difficulty Paying Gas/Electric Bills: No Difficulty Paying for Meds: No Currently Unemployed: No Education: High School Diploma/GED Difficulty w/ Childcare or Family Care: No Living arrangements: with family Additional living arrangements comments: Lives with spouse in [place]. Occupation/Education: unemployed Spiritual care concerns: No Meds Home Medications and Allergies Home Medications ?Medication ?Instructions ?Recorded ?Confirmed ?Type flash glucose sensor (FreeStyle #1 ea 05/13/23 10/18/24 Rx Nithin 14 Day Sensor kit) metoprolol succinate 200 mg 200 mg PO DAILY #90 tabs 01/09/24 10/18/24 Rx tablet,extended release 24 hr atorvastatin 10 mg tablet 10 mg PO DAILY 05/04/24 10/18/24 History metformin 500 mg tablet 500 mg PO BID 05/04/24 10/18/24 History dapagliflozin propanediol 5 mg 5 mg PO DAILY 10/18/24 10/18/24 History tablet (Farxiga) Allergies Allergy/AdvReac Type Severity Reaction Status Date / Time No Known Allergies Allergy Verified 05/13/23 14:13 Vital Signs Vital Signs - 24 hr 10/18/24 12:54 10/18/24 13:28 10/18/24 13:34 Temperature 97.1 F L 96.9 F L 97.3 F L Pulse Rate 107 H 100 96 Respiratory Rate 15 16 19 Blood Pressure 81/59 L 144/85 H Pulse Oximetry 100 99 100 Oxygen Delivery Room Air 10/18/24 13:35 10/18/24 13:54 10/18/24 14:01 Temperature 97.3 F L 96.8 F L 97.0 F L Pulse Rate 100 101 H Respiratory Rate 15 16 12 Blood Pressure 129/80 Pulse Oximetry 100 100 Oxygen Delivery 10/18/24 14:02 10/18/24 14:11 10/18/24 14:31 Temperature 97.0 F L 97.2 F L 97.4 F L Pulse Rate 100 96 102 H Respiratory Rate 15 12 12 Blood Pressure 120/74 Pulse Oximetry 100 Oxygen Delivery 10/18/24 14:33 10/18/24 14:36 10/18/24 15:04 Temperature 97.4 F L 97.5 F L 97.9 F Pulse Rate 102 H 102 H 97 Respiratory Rate 18 18 12 Blood Pressure 127/88 Pulse Oximetry 100 100 100 Oxygen Delivery 10/18/24 15:11 10/18/24 15:15 10/18/24 15:21 Temperature 98.0 F 98.0 F 98.1 F Pulse Rate 97 97 94 Respiratory Rate 15 12 19 Blood Pressure 114/72 119/68 Pulse Oximetry 100 100 100 Oxygen Delivery 10/18/24 15:45 10/18/24 15:51 10/18/24 16:00 Temperature 98.3 F 98.3 F 98.4 F Pulse Rate 92 93 Respiratory Rate 13 12 21 H Blood Pressure 116/78 Pulse Oximetry 100 100 100 Oxygen Delivery 10/18/24 16:01 10/18/24 16:11 10/18/24 16:15 Temperature 98.4 F 98.4 F 98.4 F Pulse Rate 92 95 92 Respiratory Rate 15 19 14 Blood Pressure 131/75 122/91 H Pulse Oximetry 100 100 100 Oxygen Delivery 10/18/24 16:21 10/18/24 16:30 10/18/24 17:03 Temperature 98.4 F 98.5 F 98.6 F Pulse Rate 92 93 93 Respiratory Rate 15 18 13 Blood Pressure 116/77 Pulse Oximetry 100 100 Oxygen Delivery 10/18/24 17:11 10/18/24 17:15 10/18/24 17:21 Temperature 98.7 F 98.7 F 98.7 F Pulse Rate 93 93 96 Respiratory Rate 13 20 13 Blood Pressure 122/74 108/78 Pulse Oximetry 100 100 100 Oxygen Delivery 10/18/24 17:30 10/18/24 17:31 10/18/24 17:41 Temperature 98.7 F 98.7 F 98.8 F Pulse Rate 97 96 98 Respiratory Rate 15 14 21 H Blood Pressure 118/83 125/84 Pulse Oximetry 100 100 100 Oxygen Delivery 10/18/24 17:45 10/18/24 17:51 10/18/24 18:00 Temperature 98.8 F 98.8 F 98.8 F Pulse Rate 95 99 97 Respiratory Rate 18 15 21 H Blood Pressure 109/83 Pulse Oximetry 100 100 100 Oxygen Delivery 10/18/24 18:01 10/18/24 18:11 10/18/24 18:21 Temperature 98.8 F 98.8 F 98.9 F Pulse Rate 100 105 H 106 H Respiratory Rate 16 17 16 Blood Pressure 118/80 138/80 105/77 Pulse Oximetry 100 100 100 Oxygen Delivery 10/18/24 18:31 10/18/24 18:41 10/18/24 18:51 Temperature 98.9 F 98.9 F 98.9 F Pulse Rate 99 99 98 Respiratory Rate 14 16 15 Blood Pressure 133/71 122/74 107/68 Pulse Oximetry 100 100 100 Oxygen Delivery 10/18/24 19:51 10/18/24 20:01 10/18/24 20:11 Temperature 98.8 F 98.8 F 98.8 F Pulse Rate 104 H 104 H 104 H Respiratory Rate 12 13 22 H Blood Pressure 125/70 125/89 96/81 L Pulse Oximetry 100 100 100 Oxygen Delivery 10/18/24 20:21 10/18/24 20:41 10/18/24 21:29 Temperature 98.7 F 98.7 F Pulse Rate 105 H 107 H 107 H Respiratory Rate 15 19 Blood Pressure 113/80 116/71 Pulse Oximetry 100 100 Oxygen Delivery 10/18/24 21:35 10/18/24 21:54 Temperature 97.1 F L Pulse Rate 106 H Respiratory Rate 20 Blood Pressure 133/77 Pulse Oximetry 100 Oxygen Delivery Room Air Exam Narrative: General: Chronically ill, disheveled female appearing older than her stated age, lying in bed. Weight: 64.4 kg. BMI: 26.0. HEENT: Normocephalic, atraumatic. No tenderness over the mastoids or protrusion of the pinnae. Mild wax in the left ear canal. Bony landmarks were seen. She did not allow me to look in her right ear. Mild left-sided exophthalmos. Sclerae anicteric. Conjunctiva are injected, left greater than right. Pupils are reactive. Extraocular motions appear to be intact. Dry mucous membranes. Poor dental hygiene with limited dentition. Neck: Supple. No nuchal rigidity, lymphadenopathy, or obvious thyromegaly or bruits. Respiratory: Respirations are nonlabored. Lung sounds are clear to auscultation. Cardiovascular: Regular rate and rhythm with S1-S2. Gastrointestinal: Abdomen is soft, nontender, and nondistended with positive bowel sounds. Skin: Warm and dry. Normal capillary refill. Intertrigo, worse in the right inguinal crease. There is mild hyperpigmentation over the upper anterior thighs and lower part of the panniculus. There is maceration and breakdown over the sacrum with shallow denuded, beefy red erythema extending from the right gluteus over the right flank and somewhat to the upper lateral right thigh. There are some scattered lesions in the right axilla. There is a large, open wound on the plantar aspect of the left foot over the metatarsal heads with visualized muscle and tendon. There is surrounding erythema and edema. Extremities: No cyanosis, clubbing, or significant edema. Neurological: Alert to self. She did not answer any other orientation questions. Cranial nerves 2-12 are grossly intact. No obvious facial asymmetry her stay. Noted to move upper and lower extremities though minimally. She did not follow commands to participate in the neurologic exam. Psychiatric: Confused and mostly cooperative. H&P: Results Labs Labs: Short CBC 10/18/24 Range/Units 13:05 WBC 15.1 H (4.5-10.0) K/mm3 Hgb 12.2 (12.0-15.0) g/dL Hct 40.5 (37.0-47.0) % Plt Count 500 H D (150-375) k/mm3 BMP 10/18/24 13:05 Sodium 134 L Potassium 4.2 Chloride 100 Carbon Dioxide 21 L BUN 26 H D Creatinine 0.88 Glucose 163 H Calcium 9.2 Cardiac Enzymes 10/18/24 Range/Units 13:05 Total Creatine Kinase 57 (30-135) U/L Troponin I < 0.012 (0.000-0.034) ng/mL Liver Function 10/18/24 Range/Units 13:05 Total Bilirubin 0.9 (0.2-1.3) mg/dL AST 18 (14-36) U/L ALT 11 (6-35) U/L Alkaline Phosphatase 106 (38-126) U/L Albumin 3.4 L (3.5-5.1) g/dL Urine 10/18/24 Range/Units 13:05 Urine Color Light yellow (Yellow) Urine Appearance Turbid H (Clear) Urine pH TNP Ur Specific [place] TNP Urine Protein TNP Urine Glucose (UA) TNP Impressions Chest X-Ray 10/18/24 14:03 IMPRESSION: No acute cardiopulmonary process. Head CT 10/18/24 14:32 IMPRESSION: No acute intracranial process. Right mastoid opacification, may represent effusion versus exudate. Correlate for clinical findings of mastoiditis. Cervical Spine CT 10/18/24 14:48 IMPRESSION: No acute fracture or traumatic malalignment in the cervical spine. Chest/Abdomen/Pelvis CTA 10/18/24 14:58 IMPRESSION: No CT evidence of acute pulmonary embolus. Chronic pulmonary embolism in the right interlobar pulmonary artery. Moderate esophagitis. Ascending thoracic aortic ectasia, measuring up to 4.2 cm. Mild gastritis. Peripheral, somewhat wedge-shaped splenic hypodensities may represent splenic infarcts. No embolic source is detected. Indeterminate 2.0 cm left upper pole renal lesion, recommend nonemergent, outpatient CT or MRI with and without contrast for further evaluation. Gallbladder hydrops with wall hyperemia, correlate with biliary labs and symptoms of right upper quadrant pain. Cystitis. Possible mild fecal impaction. Abdomen Ultrasound 10/18/24 16:50 IMPRESSION: Biliary sludge with gallbladder wall thickening. Negative sonographic Cueva sign. Foot X-Ray 10/18/24 19:02 IMPRESSION: Findings suspicious for extensive forefoot osteomyelitis and septic arthritis involving the second through fourth rays. Assessment and Plan Assessment and plan (1) Osteomyelitis of left foot: Code(s): M86.9 - Osteomyelitis, unspecified Status: Acute (2) Septic arthritis of left foot: Code(s): M00.9 - Pyogenic arthritis, unspecified Status: Acute (3) Urinary tract infection: Code(s): N39.0 - Urinary tract infection, site not specified Status: Acute (4) Multiple wounds: Code(s): T07.XXXA - Unspecified multiple injuries, initial encounter Status: Acute (5) Thickening of wall of gallbladder: Code(s): K82.8 - Other specified diseases of gallbladder Status: Acute (6) Chronic pulmonary embolism: Code(s): I27.82 - Chronic pulmonary embolism Status: Acute (7) Esophagitis with gastritis: Code(s): K29.70 - Gastritis, unspecified, without bleeding; K20.90 - Esophagitis, unspecified without bleeding Status: Acute (8) Adult failure to thrive: Code(s): R62.7 - Adult failure to thrive Status: Acute (9) Encephalopathy: Code(s): G93.40 - Encephalopathy, unspecified Status: Acute (10) Lesion of left [place] kidney: Code(s): N28.9 - Disorder of kidney and ureter, unspecified Status: Acute (11) Type 2 diabetes mellitus: Code(s): E11.9 - Type 2 diabetes mellitus without complications Status: Acute Plan The patient presented to the emergency department for evaluation of weakness with reports that the patient has not gotten off of her couch for the last month or longer as detailed in HPI. Labs, imaging, EKG, and all reports were personally reviewed. She is not eating or drinking well, lies in her own urine and excrement, and has lost a significant amount of weight. It is unclear why she has failure to thrive. is concerned that she may have underlying dementia; unclear if there may be some underlying psychiatric issues as well. Encephalopathy does not seem to be acute but more of a chronic problem which is likely exacerbated by infection with findings of a urinary tract infection and probable extensive osteomyelitis of the left forefoot. Right upper quadrant ultrasound shows sludge and gallbladder wall thickening though clinically she does not have evidence of cholecystitis on examination. Mastoid effusion was seen on brain CT though no bony erosions were noted and physical exam findings do not suggest this diagnosis. She is not uremic and has no electrolyte abnormality. Urine drug screen was negative and there were no reports of history of alcohol abuse. She has been started on broad-spectrum antibiotics including cefepime, metronidazole, and vancomycin pending wound, urine, and blood cultures. Brain CT shows evidence of old infarcts and a brain MRI may be prudent at some point. Echocardiogram ordered; there are findings of possible splenic infarcts as well as findings of a chronic pulmonary embolism. Hold anticoagulation for now as she will likely need debridement if not more extensive surgery for her foot wound. She will be monitored on telemetry to monitor for possible atrial fibrillation. Wound nurse has been consulted for recommendations. Start pantoprazole for findings of gastritis and esophagitis. At some point in time she will likely need upper and lower endoscopies to evaluate weight loss and aversion to eating. Radiologist recommends MRI to assess the left kidney lesion which could be done as an outpatient. Initiate sliding scale insulin, Accu-Cheks, and hypoglycemic protocol. Her home medications will be reviewed and resumed as appropriate. Findings and treatment plan were discussed with the patient and her . Questions were solicited and answered to satisfaction. The patient's medical management will be taken over by the hospitalist team in a.m. Quality VTE Prophylaxis VTE prophylaxis: pharmacologic ordered The patient has been admitted under observation status. Hospitalist MIPS Advance Care Plan I have confirmed that the patient's Advanced Care Plan is present, code status is documented, or surrogate decision maker is listed in patient medical record.: Yes Medication Reconciliation I have utilized all available resources to obtain, update and review the patients current medications (includes all prescriptions, OTC, herbals, cannabis, and nutritional supplements).: Yes
[2024-10-19] VITALS (16 sets, daily range): BP systolic 102–130; BP diastolic 57–77; PULSE 80–110; RESP 10–20; TEMP 36.1–36.6; O2SAT 98–100; BMI 26.1
[2024-10-19] MEDS: CEFEPIME 1 GM/NS 50 ML 1 GM/50 ML BAG IVPB ×2 (00:23→14:10)
[2024-10-19] MEDS: SODIUM CHLORIDE 0.9% IV 1,000 ML 100 ML IV CONT (00:23)
[2024-10-19] MEDS: metroNIDAZOLE 500 MG/ISO 100ML 500 MG/100 ML BAG 100 MG IVPB ×4 (00:23→23:54)
[2024-10-19 00:32] LABS: Prealbumin 7.3 mg/dL (17.6-36.0)
[2024-10-19 01:32] LABS: Folic Acid 2.6 ng/mL (2.76->20)
[2024-10-19 05:59] LABS: Hematocrit 33.4 % (37.0-47.0); Hemoglobin 9.8 g/dL (12.0-15.0); Mean Corpuscular HGB Conc 29.3 g/dl (32-36); Mean Corpuscular Hemoglobin 22.4 pg (26-34); Mean Corpuscular Volume 76.3 fl (80-100); Mean Platelet Volume 9.8 fl (7.4-10.4); Platelet Count Result 345 k/mm3 (150-375); Red Blood Count 4.38 M/mm3 (4.2-5.4); Red Cell Distribution Width 17.9 % (11.5-14.5); White Blood Count 9.1 K/mm3 (4.5-10.0)
[2024-10-19 06:08] LABS: Iron 25 ug/dL (37-170)
[2024-10-19 06:14] LABS: INR 1.4; Prothrombin Time 17.9 Seconds (11.1-14.7)
[2024-10-19 06:15] LABS: Partial Thromboplastin Time 30.9 Seconds (22.3-36.8)
[2024-10-19 06:17] LABS: Percent Iron Saturation 16 % (20-50)
[2024-10-19 06:19] LABS: Anion Gap 13 mmol/L (4-12); Blood Urea Nitrogen 18 mg/dL (7-17); Calcium 8.4 mg/dL (8.4-10.2); Carbon Dioxide 15 mmol/L (22-30); Chloride 108 mmol/L (98-107); Estimated CRCL calculation 55 ml/min; Estimated Glomerular Filt Rate > 60; Glucose 124 mg/dL (65-110); Magnesium 2.2 mg/dL (1.6-2.3); Phosphorus 2.9 mg/dL (2.5-4.5); Sodium 136 mmol/L (137-145)
[2024-10-19 07:38] LABS: Glucose Point of Care 114 mg/dl (65-105)
--- NOTE | 2024-10-19 08:21 | PC.NURSE ---
Patient's walked onto unit and asked what NPO means. RN stated nothing by mouth . Patient's proceeded to fill water jug up and give patient water by mouth while laying flat in bed. RN explained to patient's again that the patient is nothing by mouth incase patient will need surgery.
--- NOTE | 2024-10-19 08:48 | P.PNIM_ITS ---
Progress Note: A&P Assessment and Plan (1) Cutaneous abscess of left foot: Code(s): L02.612 - Cutaneous abscess of left foot Status: Acute Assessment and Plan: - Foot XR: Findings suspicious for extensive forefoot osteomyelitis and septic arthritis involving the second through fourth rays. - General surgery consulted, plan for debridement and drainage today - Started on Cefepime, Flagyl and Vancomycin - Discussed with that wound unlikely to heal and will possibly need BKA (2) Osteomyelitis of left foot: Code(s): M86.9 - Osteomyelitis, unspecified Status: Acute Assessment and Plan: - See plan above - Likely BKA eventually - Obtain ABIs, pending (3) Septic arthritis of left foot: Code(s): M00.9 - Pyogenic arthritis, unspecified Status: Acute Assessment and Plan: - Likely attributed to abscess/osteomyelitis - Continue IV Abx - See above (4) Urinary tract infection: Code(s): N39.0 - Urinary tract infection, site not specified Status: Acute Assessment and Plan: - UA: Turbid, 6-10 RBC, Triple Phos Crystals present, heavy amorphous sediment, heavy urine mucus - Empiric Abx Cefepime, Flagyl, Vanc (5) Encephalopathy: Code(s): G93.40 - Encephalopathy, unspecified Status: Acute Assessment and Plan: - Multifactorial, likely chronic but exacerbated by UTI, osteomyelitis - Head CT: No acute intracranial process. - Brain MRI and Head CTA ordered (6) Multiple wounds: Code(s): T07.XXXA - Unspecified multiple injuries, initial encounter Status: Acute Assessment and Plan: - See Assessment and Plan for left foot abscess, osteomyelitis, septic arthritis - Wound on right hip, underneath right breast/axilla - Wound care consulted, continue with antifungal barrier cream - Right foot XR for multiple wounds: Deformities with chronic osteolysis centered at the right third and fourth metatarsophalangeal joints consistent with likely sequela of chronic tonsillitis. No evident acute osteomyelitis or other acute osseous abnormality (7) Thickening of wall of gallbladder: Code(s): K82.8 - Other specified diseases of gallbladder Status: Acute Assessment and Plan: - Chest/Abd/Pelvis CTA: Gallbladder hydrops with wall hyperemia, correlate with biliary labs and symptoms of right upper quadrant pain - Abdomen US: Biliary sludge with gallbladder wall thickening. Negative sonographic Cueva sign - Consult GI, appreciate recommendations - No abdominal pain on exam, likely incidental finding (8) Chronic pulmonary embolism: Code(s): I27.82 - Chronic pulmonary embolism Status: Acute Assessment and Plan: - Chest/Abd/Pelvis CTA: Chronic pulmonary embolism in the right interlobar pulmonary artery. - Stable - Echocardiogram: Normal LV dimension, LV systolic normal, EF 65-70%, Grade 1 LV diastolic dysfxn, moderate AV stenosis, no pulm HTN - US Venous doppler LE BI: No lower extremity deep venous thrombosis. (9) Esophagitis with gastritis: Code(s): K29.70 - Gastritis, unspecified, without bleeding; K20.90 - Esophagitis, unspecified without bleeding Status: Acute Assessment and Plan: - Start Pantoprazole - Likely will need Upper +/- endoscopies - Consult GI (10) Adult failure to thrive: Code(s): R62.7 - Adult failure to thrive Status: Acute Assessment and Plan: - Dietary consults - Adult Protective services to follow (11) Lesion of left [place] kidney: Code(s): N28.9 - Disorder of kidney and ureter, unspecified Status: Acute Assessment and Plan: - Chest/Abd/Pelvis CTA: Indeterminate 2.0 cm left upper pole renal lesion, recommend nonemergent, outpatient CT or MRI with and without contrast for further evaluation. - Management to be outpatient (12) Type 2 diabetes mellitus: Code(s): E11.9 - Type 2 diabetes mellitus without complications Status: Acute Assessment and Plan: - hypoglycemia protocol - POC blood glucose ACHS - Initiate SSI - correct regimen ordered - low dose TIDWM and HS - A1C 8.2 (13) Vitamin D deficiency: Code(s): E55.9 - Vitamin D deficiency, unspecified Status: Acute Assessment and Plan: - Vitamin D 25 Hydroxy= <12.8 - Plan to replace, Ergocalciferol 50,000 units weekly Time Spent With Patient Time: 35 Subjective Date/time seen: 10/19/24 08:48 Interval history: This is a 64-year-old female with type 2 diabetes mellitus, hypertension, hyperlipidemia, and significant hearing loss who presented to the emergency department via EMS for evaluation of weakness. She is a poor historian as she seems a bit confused and also due to her significant hearing loss. 10/19/2024 Patient is sitting in bed upon examination. History and exam questions very difficult to ascertain. Most of history obtained from . At this time patient denies any chest pain, shortness of breath, or abdominal pain. She reports generalized pain on her back side, more localized on her tailbone. She appears to have multiple wounds on the plantar aspect of both feet, general surgery to order plain films of R foot to evaluate for osteo. Planning for OR today for debridement and drainage of L foot abscess. ABIs to be ordered to eval arterial flow. Continue IV abx. Also pending GI consult. Review of Systems Review of Systems: Unable to be obtained accurately as she is a poor historian and very hard of hearing. Exam Narrative: General: Chronically ill, disheveled female appearing older than her stated age, lying in bed. Weight: 64.4 kg. BMI: 26.0. HEENT: Normocephalic, atraumatic. No tenderness over the mastoids or protrusion of the pinnae. Mild wax in the left ear canal. Bony landmarks were seen. She did not allow me to look in her right ear. Mild left-sided exophthalmos. Sclerae anicteric. Conjunctiva are injected, left greater than right. Pupils are reactive. Extraocular motions appear to be intact. Dry mucous membranes. Poor dental hygiene with limited dentition. Neck: Supple. No nuchal rigidity, lymphadenopathy, or obvious thyromegaly or bruits. Respiratory: Respirations are nonlabored. Lung sounds are clear to auscultation. Cardiovascular: Regular rate and rhythm with S1-S2. Gastrointestinal: Abdomen is soft, nontender, and nondistended with positive bowel sounds. Skin: Warm and dry. Normal capillary refill. Intertrigo, worse in the right inguinal crease. There is mild hyperpigmentation over the upper anterior thighs and lower part of the panniculus. There is maceration and breakdown over the sacrum with shallow denuded, beefy red erythema extending from the right gluteus over the right flank and somewhat to the upper lateral right thigh. There are some scattered lesions in the right axilla. There is a large, open wound on the plantar aspect of the left foot over the metatarsal heads with visualized muscle and tendon. There is surrounding erythema and edema. Extremities: No cyanosis, clubbing, or significant edema. Neurological: Alert to self. She did not answer any other orientation questions. No focal motor deficits. No obvious facial asymmetry her stay. Noted to move upper and lower extremities though minimally. Unable to assess gait Psychiatric: Confused and mostly cooperative. Objective Data Vital Signs Vital Signs: Vital Signs - 24 hr 10/18/24 12:54 10/18/24 13:28 10/18/24 13:34 Temperature 97.1 F L 96.9 F L 97.3 F L Pulse Rate 107 H 100 96 Respiratory Rate 15 16 19 Blood Pressure 81/59 L 144/85 H Pulse Oximetry 100 99 100 Oxygen Delivery Room Air 10/18/24 13:35 10/18/24 13:54 10/18/24 14:01 Temperature 97.3 F L 96.8 F L 97.0 F L Pulse Rate 100 101 H Respiratory Rate 15 16 12 Blood Pressure 129/80 Pulse Oximetry 100 100 Oxygen Delivery 10/18/24 14:02 10/18/24 14:11 10/18/24 14:31 Temperature 97.0 F L 97.2 F L 97.4 F L Pulse Rate 100 96 102 H Respiratory Rate 15 12 12 Blood Pressure 120/74 Pulse Oximetry 100 Oxygen Delivery 10/18/24 14:33 10/18/24 14:36 10/18/24 15:04 Temperature 97.4 F L 97.5 F L 97.9 F Pulse Rate 102 H 102 H 97 Respiratory Rate 18 18 12 Blood Pressure 127/88 Pulse Oximetry 100 100 100 Oxygen Delivery 10/18/24 15:11 10/18/24 15:15 10/18/24 15:21 Temperature 98.0 F 98.0 F 98.1 F Pulse Rate 97 97 94 Respiratory Rate 15 12 19 Blood Pressure 114/72 119/68 Pulse Oximetry 100 100 100 Oxygen Delivery 10/18/24 15:45 10/18/24 15:51 10/18/24 16:00 Temperature 98.3 F 98.3 F 98.4 F Pulse Rate 92 93 Respiratory Rate 13 12 21 H Blood Pressure 116/78 Pulse Oximetry 100 100 100 Oxygen Delivery 10/18/24 16:01 10/18/24 16:11 10/18/24 16:15 Temperature 98.4 F 98.4 F 98.4 F Pulse Rate 92 95 92 Respiratory Rate 15 19 14 Blood Pressure 131/75 122/91 H Pulse Oximetry 100 100 100 Oxygen Delivery 10/18/24 16:21 10/18/24 16:30 10/18/24 17:03 Temperature 98.4 F 98.5 F 98.6 F Pulse Rate 92 93 93 Respiratory Rate 15 18 13 Blood Pressure 116/77 Pulse Oximetry 100 100 Oxygen Delivery 10/18/24 17:11 10/18/24 17:15 10/18/24 17:21 Temperature 98.7 F 98.7 F 98.7 F Pulse Rate 93 93 96 Respiratory Rate 13 20 13 Blood Pressure 122/74 108/78 Pulse Oximetry 100 100 100 Oxygen Delivery 10/18/24 17:30 10/18/24 17:31 10/18/24 17:41 Temperature 98.7 F 98.7 F 98.8 F Pulse Rate 97 96 98 Respiratory Rate 15 14 21 H Blood Pressure 118/83 125/84 Pulse Oximetry 100 100 100 Oxygen Delivery 10/18/24 17:45 10/18/24 17:51 10/18/24 18:00 Temperature 98.8 F 98.8 F 98.8 F Pulse Rate 95 99 97 Respiratory Rate 18 15 21 H Blood Pressure 109/83 Pulse Oximetry 100 100 100 Oxygen Delivery 10/18/24 18:01 10/18/24 18:11 10/18/24 18:21 Temperature 98.8 F 98.8 F 98.9 F Pulse Rate 100 105 H 106 H Respiratory Rate 16 17 16 Blood Pressure 118/80 138/80 105/77 Pulse Oximetry 100 100 100 Oxygen Delivery 10/18/24 18:31 10/18/24 18:41 10/18/24 18:51 Temperature 98.9 F 98.9 F 98.9 F Pulse Rate 99 99 98 Respiratory Rate 14 16 15 Blood Pressure 133/71 122/74 107/68 Pulse Oximetry 100 100 100 Oxygen Delivery 10/18/24 19:51 10/18/24 20:01 10/18/24 20:11 Temperature 98.8 F 98.8 F 98.8 F Pulse Rate 104 H 104 H 104 H Respiratory Rate 12 13 22 H Blood Pressure 125/70 125/89 96/81 L Pulse Oximetry 100 100 100 Oxygen Delivery 10/18/24 20:21 10/18/24 20:41 10/18/24 21:29 Temperature 98.7 F 98.7 F Pulse Rate 105 H 107 H 107 H Respiratory Rate 15 19 Blood Pressure 113/80 116/71 Pulse Oximetry 100 100 Oxygen Delivery 10/18/24 21:35 10/18/24 21:54 10/19/24 00:00 Temperature 97.1 F L Pulse Rate 106 H 110 H Respiratory Rate 20 Blood Pressure 133/77 Pulse Oximetry 100 Oxygen Delivery Room Air 10/19/24 04:00 10/19/24 05:04 Temperature 97.0 F L Pulse Rate 92 80 Respiratory Rate 20 Blood Pressure 117/65 Pulse Oximetry 100 Oxygen Delivery Intake/Output Intake/Output: Intake & Output 10/16/24 10/17/24 10/18/24 10/19/24 23:59 23:59 23:59 23:59 Intake Total 2550 450 Output Total 450 Balance 2550 0 Meds/Results Medications: Active Medications Generic Name Dose Route Start Last Admin Trade Name Freq PRN Reason Stop Dose Admin Acetaminophen 650 mg 10/18/24 18:28 Acetaminophen 325 Mg Tablet PO Q4H PRN Mild Pain (1-3) or Fever Atorvastatin Calcium 10 mg 10/19/24 09:00 Atorvastatin 10 Mg Tablet PO DAILY SUSY Dextrose 12.5 gm 10/18/24 18:28 Dextrose 50% 25 Gm/50 Ml Syringe IV PUSH PRN PRN Hypoglycemia Protocol Empagliflozin 10 mg 10/19/24 09:00 Empagliflozin 10 Mg Tablet BY MOUTH DAILY SUSY Enoxaparin Sodium 40 mg 10/19/24 09:00 Enoxaparin 40 Mg/0.4 Ml Syringe SUB-Q DAILY SUSY Glucagon 1 mg 10/18/24 18:28 Glucagon For Inj 1 Mg Vial IM PRN PRN Hypoglycemia Protocol Glucose 15 gm 10/18/24 18:28 Glucose Oral Gel 15 Gm Of Glucse In 37.5 Gm Tube PO PRN PRN Hypoglycemia Protocol Vancomycin HCl 1,250 mg in 250 mls @ 166.667 mls/hr 10/19/24 14:00 Vancomycin 1,250 Mg/Ns 250 Ml IVPB Q24H SUSY Dextrose 1,000 mls @ 100 mls/hr 10/18/24 18:28 Dextrose 5% 1,000 Ml IVPB PRN PRN Hypoglycemia Protocol Metronidazole 500 mg in 100 mls @ 100 mls/hr 10/19/24 00:00 10/19/24 01:23 Flagyl 500 Mg/Iso Soln 100 Ml IVPB Infused Q8H SUSY Infusion Sodium Chloride 1,000 mls @ 100 mls/hr 10/18/24 23:56 10/19/24 00:23 Normal Saline Iv IV CONT 10/19/24 09:55 100 mls/hr .Q10H ONE Administration Cefepime HCl 1 gm in 50 mls @ 100 mls/hr 10/19/24 01:00 10/19/24 00:53 Maxipime 1 Gm/Ns 50 Ml IVPB Infused Q12H [facility] Infusion Insulin Aspart 1 - 3 units 10/19/24 21:00 Insulin Aspart (*Bkc) 100 Units/Ml SUB-Q HS [facility] Protocol Insulin Aspart 3 - 6 units 10/19/24 08:00 Insulin Aspart (*Bkc) 100 Units/Ml SUB-Q TIDWM [facility] Protocol Metoprolol Succinate 200 mg 10/19/24 09:00 Metoprolol Succinate Ext Rel 100 Mg Tabcr PO DAILY [facility] Ondansetron HCl 4 mg 10/18/24 18:28 Ondansetron Inj 4 Mg/2 Ml Vial IV PUSH Q4H PRN Nausea Pantoprazole Sodium 40 mg 10/19/24 09:00 Pantoprazole 40 Mg Tablet PO Q12HR [facility] Perflutren Lipid Microsphere 0 ml 10/18/24 23:47 Perflutren Lipid Microspheres 1.5 Ml Vial Diluted To 10 Ml Total Volume IV PUSH 10/21/24 23:47 ONCE PRN adequate visualization Protocol Radiology Results: ITS Impressions Chest X-Ray 10/18/24 14:03 IMPRESSION: No acute cardiopulmonary process. Head CT 10/18/24 14:32 IMPRESSION: No acute intracranial process. Right mastoid opacification, may represent effusion versus exudate. Correlate for clinical findings of mastoiditis. Cervical Spine CT 10/18/24 14:48 IMPRESSION: No acute fracture or traumatic malalignment in the cervical spine. Chest/Abdomen/Pelvis CTA 10/18/24 14:58 IMPRESSION: No CT evidence of acute pulmonary embolus. Chronic pulmonary embolism in the right interlobar pulmonary artery. Moderate esophagitis. Ascending thoracic aortic ectasia, measuring up to 4.2 cm. Mild gastritis. Peripheral, somewhat wedge-shaped splenic hypodensities may represent splenic infarcts. No embolic source is detected. Indeterminate 2.0 cm left upper pole renal lesion, recommend nonemergent, outpatient CT or MRI with and without contrast for further evaluation. Gallbladder hydrops with wall hyperemia, correlate with biliary labs and symptoms of right upper quadrant pain. Cystitis. Possible mild fecal impaction. Abdomen Ultrasound 10/18/24 16:50 IMPRESSION: Biliary sludge with gallbladder wall thickening. Negative sonographic Cueva sign. Foot X-Ray 10/18/24 19:02 IMPRESSION: Findings suspicious for extensive forefoot osteomyelitis and septic arthritis involving the second through fourth rays. Labs Labs: Laboratory Results - last 24 hr 10/18/24 10/18/24 10/18/24 12:14 13:04 13:05 WBC 15.1 H RBC 5.49 H Hgb 12.2 Hct 40.5 MCV 73.8 L MCH 22.2 L MCHC 30.1 L RDW 18.2 H Plt Count 500 H D MPV 9.3 Immature Gran % (Auto) 0.7 H Neut % (Auto) 84.5 H Lymph % (Auto) 8.2 L Cross % (Auto) 5.2 Eos % (Auto) 1.1 Baso % (Auto) 0.3 Lymph # (Auto) 1.24 Cross # (Auto) 0.8 H Eos # (Auto) 0.2 Baso # (Auto) 0.1 Abs Immat Gran (auto) 0.11 H Absolute Neuts (auto) 12.7 H Absolute Nucleated RBC 0.000 Band Neutrophils % Not Reportable Nucleated RBC % 0.0 Platelet Estimate Increased Crenated Cell 2+ Schistocytes None seen PT 17.2 H INR 1.3 APTT 28.7 Sodium 134 L Potassium 4.2 Chloride 100 Carbon Dioxide 21 L Anion Gap 13 H BUN 26 H D Creatinine 0.88 Estim Creat Clear Calc 50 Estimated GFR > 60 Glucose 163 H POC Capillary Glucose Hemoglobin A1c 8.2 H Lactic Acid 2.4 H Calcium 9.2 Phosphorus Magnesium Cancelled Iron TIBC Ferritin Total Bilirubin AST ALT Alkaline Phosphatase Ammonia Total Creatine Kinase Troponin I C-Reactive Protein Total Protein Albumin Prealbumin 7.3 L Lipase Vitamin B12 525.0 Folate 2.6 L TSH Urine Color Urine Appearance Urine pH Ur Specific [place] Urine Protein Urine Glucose (UA) Urine Ketones Ur Blood (Man) Urine Nitrate Urine Bilirubin Urine Urobilinogen Leukocyte Esterase Rfl Urine RBC Urine WBC Ur Squamous Epith Cells Triple Phos Crystals Amorphous Sediment Urine Bacteria Urine Mucus Salicylates Urine Opiates Screen Urine Methadone Screen Acetaminophen Ur Barbiturates Screen Ur Phencyclidine Scrn Ur Amphetamine Screen U Benzodiazepines Scrn Urine Cocaine Screen U Cannabinoids Screen Ethyl Alcohol Influenza A (RT-PCR) Influenza B (RT-PCR) RSV (RT-PCR) SARS-CoV-2 RNA (RT-PCR) Blood Type Antibody Screen 10/18/24 10/18/24 10/18/24 13:05 13:27 13:41 WBC RBC Hgb Hct MCV MCH MCHC RDW Plt Count MPV Immature Gran % (Auto) Neut % (Auto) Lymph % (Auto) Cross % (Auto) Eos % (Auto) Baso % (Auto) Lymph # (Auto) Cross # (Auto) Eos # (Auto) Baso # (Auto) Abs Immat Gran (auto) Absolute Neuts (auto) Absolute Nucleated RBC Band Neutrophils % Nucleated RBC % Platelet Estimate Crenated Cell Schistocytes PT INR APTT Sodium Potassium Chloride Carbon Dioxide Anion Gap BUN Creatinine Estim Creat Clear Calc Estimated GFR Glucose POC Capillary Glucose 142 H Hemoglobin A1c Lactic Acid Calcium Phosphorus Magnesium 2.2 Iron TIBC Ferritin Total Bilirubin 0.9 AST 18 ALT 11 Alkaline Phosphatase 106 Ammonia < 9 L Total Creatine Kinase 57 Troponin I < 0.012 C-Reactive Protein 19.1 H Total Protein 7.0 Albumin 3.4 L Prealbumin Lipase 313 H Vitamin B12 Folate TSH 1.730 Urine Color Light yellow Urine Appearance Turbid H Urine pH TNP Ur Specific [place] TNP Urine Protein TNP Urine Glucose (UA) TNP Urine Ketones TNP Ur Blood (Man) TNP Urine Nitrate TNP Urine Bilirubin TNP Urine Urobilinogen TNP Leukocyte Esterase Rfl TNP Urine RBC 6-10 H Urine WBC >100 Ur Squamous Epith Cells Few Triple Phos Crystals Present H Amorphous Sediment Heavy H Urine Bacteria Unable to determine Urine Mucus Heavy H Salicylates < 1.0 L Urine Opiates Screen Urine Methadone Screen Acetaminophen < 10 L Ur Barbiturates Screen Ur Phencyclidine Scrn Ur Amphetamine Screen U Benzodiazepines Scrn Urine Cocaine Screen U Cannabinoids Screen Ethyl Alcohol < 10 Influenza A (RT-PCR) Negative Influenza B (RT-PCR) Negative RSV (RT-PCR) Negative SARS-CoV-2 RNA (RT-PCR) Negative Blood Type O Negative Antibody Screen Negative 10/18/24 10/18/24 10/18/24 15:19 17:00 21:42 WBC RBC Hgb Hct MCV MCH MCHC RDW Plt Count MPV Immature Gran % (Auto) Neut % (Auto) Lymph % (Auto) Cross % (Auto) Eos % (Auto) Baso % (Auto) Lymph # (Auto) Cross # (Auto) Eos # (Auto) Baso # (Auto) Abs Immat Gran (auto) Absolute Neuts (auto) Absolute Nucleated RBC Band Neutrophils % Nucleated RBC % Platelet Estimate Crenated Cell Schistocytes PT INR APTT Sodium Potassium Chloride Carbon Dioxide Anion Gap BUN Creatinine Estim Creat Clear Calc Estimated GFR Glucose POC Capillary Glucose 127 H Hemoglobin A1c Lactic Acid 1.6 Calcium Phosphorus Magnesium Iron TIBC Ferritin Total Bilirubin AST ALT Alkaline Phosphatase Ammonia Total Creatine Kinase Troponin I C-Reactive Protein Total Protein Albumin Prealbumin Lipase Vitamin B12 Folate TSH Urine Color Urine Appearance Urine pH Ur Specific [place] Urine Protein Urine Glucose (UA) Urine Ketones Ur Blood (Man) Urine Nitrate Urine Bilirubin Urine Urobilinogen Leukocyte Esterase Rfl Urine RBC Urine WBC Ur Squamous Epith Cells Triple Phos Crystals Amorphous Sediment Urine Bacteria Urine Mucus Salicylates Urine Opiates Screen Negative Urine Methadone Screen Negative Acetaminophen Ur Barbiturates Screen Negative Ur Phencyclidine Scrn Negative Ur Amphetamine Screen Negative U Benzodiazepines Scrn Negative Urine Cocaine Screen Negative U Cannabinoids Screen Negative Ethyl Alcohol Influenza A (RT-PCR) Influenza B (RT-PCR) RSV (RT-PCR) SARS-CoV-2 RNA (RT-PCR) Blood Type Antibody Screen 10/19/24 10/19/24 05:43 07:26 WBC 9.1 RBC 4.38 Hgb 9.8 L Hct 33.4 L MCV 76.3 L MCH 22.4 L MCHC 29.3 L RDW 17.9 H Plt Count 345 MPV 9.8 Immature Gran % (Auto) Neut % (Auto) Lymph % (Auto) Cross % (Auto) Eos % (Auto) Baso % (Auto) Lymph # (Auto) Cross # (Auto) Eos # (Auto) Baso # (Auto) Abs Immat Gran (auto) Absolute Neuts (auto) Absolute Nucleated RBC Band Neutrophils % Nucleated RBC % Platelet Estimate Crenated Cell Schistocytes PT 17.9 H INR 1.4 APTT 30.9 Sodium 136 L Potassium 4.0 Chloride 108 H Carbon Dioxide 15 L Anion Gap 13 H BUN 18 H Creatinine 0.71 Estim Creat Clear Calc 55 Estimated GFR > 60 Glucose 124 H POC Capillary Glucose 114 H Hemoglobin A1c Lactic Acid Calcium 8.4 Phosphorus 2.9 Magnesium 2.2 Iron 25 L TIBC 158 L Ferritin 238.00 Total Bilirubin AST ALT Alkaline Phosphatase Ammonia Total Creatine Kinase Troponin I C-Reactive Protein Total Protein Albumin Prealbumin Lipase Vitamin B12 Folate TSH Urine Color Urine Appearance Urine pH Ur Specific [place] Urine Protein Urine Glucose (UA) Urine Ketones Ur Blood (Man) Urine Nitrate Urine Bilirubin Urine Urobilinogen Leukocyte Esterase Rfl Urine RBC Urine WBC Ur Squamous Epith Cells Triple Phos Crystals Amorphous Sediment Urine Bacteria Urine Mucus Salicylates Urine Opiates Screen Urine Methadone Screen Acetaminophen Ur Barbiturates Screen Ur Phencyclidine Scrn Ur Amphetamine Screen U Benzodiazepines Scrn Urine Cocaine Screen U Cannabinoids Screen Ethyl Alcohol Influenza A (RT-PCR) Influenza B (RT-PCR) RSV (RT-PCR) SARS-CoV-2 RNA (RT-PCR) Blood Type Antibody Screen Quality VTE Prophylaxis VTE prophylaxis: pharmacologic ordered
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
[2024-10-19 12:18] LABS: Glucose Point of Care 111 mg/dl (65-105)
--- NOTE | 2024-10-19 13:50 | PC.NURSE ---
Patient off of unit to surgery
[2024-10-19] MEDS: LACTATED RINGERS 1,000 ML 30 ML IV CONT ×2 (13:55→15:59)
--- NOTE | 2024-10-19 14:19 | P.PNAN_ITS ---
Anes - Initial Pre Proc Eval Procedure: Operation Date: 10/19/24 16:30 Proposed Procedures p Debridement and Drainage Left Foot Abscess - Mann Joyce MD Date/Time: 10/19/24 14:19 Surgeon: Martín Gilman PA-C Pre Op Diagnosis: Encephalopathy/FTT/Feet and Buttock Wounds Patient Data Age: 64 Gender: F Height: 1.57 m Weight: 64.8 kg Last Vital Signs Temp 36.1 C L 10/19/24 05:04 Pulse 95 10/19/24 12:00 Resp 20 10/19/24 05:04 BP 117/65 10/19/24 05:04 Pulse Ox 100 10/19/24 05:04 O2 Del Method Room Air 10/19/24 10:00 Allergies Allergy/AdvReac Type Severity Reaction Status Date / Time No Known Allergies Allergy Verified 05/13/23 14:13 Home Medications ?Medication ?Instructions ?Recorded ?Confirmed ?Type flash glucose sensor (Agency SpotterStyle #1 ea 05/13/23 10/18/24 Rx Nithin 14 Day Sensor kit) metoprolol succinate 200 mg 200 mg PO DAILY #90 tabs 01/09/24 10/18/24 Rx tablet,extended release 24 hr atorvastatin 10 mg tablet 10 mg PO DAILY 05/04/24 10/18/24 History metformin 500 mg tablet 500 mg PO BID 05/04/24 10/18/24 History dapagliflozin propanediol 5 mg 5 mg PO DAILY 10/18/24 10/18/24 History tablet (Farxiga) Laboratory Tests 10/18/24 10/18/24 10/18/24 12:14 13:04 13:05 WBC RBC Hgb Hct MCV MCH MCHC RDW Plt Count MPV PT INR APTT Sodium Potassium Chloride Carbon Dioxide Anion Gap BUN Creatinine Estim Creat Clear Calc Estimated GFR Glucose POC Capillary Glucose Hemoglobin A1c 8.2 H % (<5.7) Lactic Acid Calcium Phosphorus Magnesium Iron TIBC % Saturation Ferritin Prealbumin 7.3 L mg/dL (17.6-36.0) Vitamin B12 525.0 pg/mL (239-931) Folate 2.6 L ng/mL (2.76->20) Urine Opiates Screen Urine Methadone Screen Ur Barbiturates Screen Ur Phencyclidine Scrn Ur Amphetamine Screen U Benzodiazepines Scrn Urine Cocaine Screen U Cannabinoids Screen Influenza A (RT-PCR) Negative (Negative) Influenza B (RT-PCR) Negative (Negative) RSV (RT-PCR) Negative (Negative) SARS-CoV-2 RNA (RT-PCR) Negative (Negative) Blood Type Antibody Screen 10/18/24 10/18/24 10/18/24 13:27 15:19 17:00 WBC RBC Hgb Hct MCV MCH MCHC RDW Plt Count MPV PT INR APTT Sodium Potassium Chloride Carbon Dioxide Anion Gap BUN Creatinine Estim Creat Clear Calc Estimated GFR Glucose POC Capillary Glucose Hemoglobin A1c Lactic Acid 1.6 mmol/L (0.7-2.0) Calcium Phosphorus Magnesium Iron TIBC % Saturation Ferritin Prealbumin Vitamin B12 Folate Urine Opiates Screen Negative (Negative) Urine Methadone Screen Negative (Negative) Ur Barbiturates Screen Negative (Negative) Ur Phencyclidine Scrn Negative (Negative) Ur Amphetamine Screen Negative (Negative) U Benzodiazepines Scrn Negative (Negative) Urine Cocaine Screen Negative (Negative) U Cannabinoids Screen Negative (Negative) Influenza A (RT-PCR) Influenza B (RT-PCR) RSV (RT-PCR) SARS-CoV-2 RNA (RT-PCR) Blood Type O Negative Antibody Screen Negative 10/18/24 10/19/24 10/19/24 21:42 05:43 07:26 WBC 9.1 K/mm3 (4.5-10.0) RBC 4.38 M/mm3 (4.2-5.4) Hgb 9.8 L g/dL (12.0-15.0) Hct 33.4 L % (37.0-47.0) MCV 76.3 L fl (80-100) MCH 22.4 L pg (26-34) MCHC 29.3 L g/dl (32-36) RDW 17.9 H % (11.5-14.5) Plt Count 345 k/mm3 (150-375) MPV 9.8 fl (7.4-10.4) PT 17.9 H Seconds (11.1-14.7) INR 1.4 APTT 30.9 Seconds (22.3-36.8) Sodium 136 L mmol/L (137-145) Potassium 4.0 mmol/L (3.4-5.0) Chloride 108 H mmol/L (98-107) Carbon Dioxide 15 L mmol/L (22-30) Anion Gap 13 H mmol/L (4-12) BUN 18 H mg/dL (7-17) Creatinine 0.71 mg/dL (0.7-1.0) Estim Creat Clear Calc 55 ml/min Estimated GFR > 60 (59 - ) Glucose 124 H mg/dL (65-110) POC Capillary Glucose 127 H mg/dl 114 H mg/dl (65-105) (65-105) Hemoglobin A1c Lactic Acid Calcium 8.4 mg/dL (8.4-10.2) Phosphorus 2.9 mg/dL (2.5-4.5) Magnesium 2.2 mg/dL (1.6-2.3) Iron 25 L ug/dL (37-170) TIBC 158 L ug/dL (261-462) % Saturation 16 L % (20-50) Ferritin 238.00 ng/mL (11.1-264) Prealbumin Vitamin B12 Folate Urine Opiates Screen Urine Methadone Screen Ur Barbiturates Screen Ur Phencyclidine Scrn Ur Amphetamine Screen U Benzodiazepines Scrn Urine Cocaine Screen U Cannabinoids Screen Influenza A (RT-PCR) Influenza B (RT-PCR) RSV (RT-PCR) SARS-CoV-2 RNA (RT-PCR) Blood Type Antibody Screen 10/19/24 12:11 WBC RBC Hgb Hct MCV MCH MCHC RDW Plt Count MPV PT INR APTT Sodium Potassium Chloride Carbon Dioxide Anion Gap BUN Creatinine Estim Creat Clear Calc Estimated GFR Glucose POC Capillary Glucose 111 H mg/dl (65-105) Hemoglobin A1c Lactic Acid Calcium Phosphorus Magnesium Iron TIBC % Saturation Ferritin Prealbumin Vitamin B12 Folate Urine Opiates Screen Urine Methadone Screen Ur Barbiturates Screen Ur Phencyclidine Scrn Ur Amphetamine Screen U Benzodiazepines Scrn Urine Cocaine Screen U Cannabinoids Screen Influenza A (RT-PCR) Influenza B (RT-PCR) RSV (RT-PCR) SARS-CoV-2 RNA (RT-PCR) Blood Type Antibody Screen Patient hx anesthesia problems: none Family hx anesthesia problems: none Results Review: All pre-operative results and documents have been reviewed as part of the pre- operative evaluation. 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 Code status: Full code. Smoking status: Never smoker Second hand tobacco smoke exposure: Yes Alcohol intake: never Substance use: never Substance use type: does not use Do You Feel Safe in your Home?: Yes Lack of Transportation: No Lack of Food: Never True Current Housing: I Have Housing Concerned About Future Housing: No Difficulty Paying Gas/Electric Bills: No Difficulty Paying for Meds: No Currently Unemployed: No Education: High School Diploma/GED Difficulty w/ Childcare or Family Care: No Living arrangements: with family Additional living arrangements comments: Lives with spouse in [place]. Occupation/Education: unemployed Spiritual care concerns: No Anes - Eval Final PreProcedure Day of Procedure 10/19/24 14:19 Patient weight: overweight Heart: regular rate and rhythm Lungs: clear to auscultation Airway: Mallampati scale class III Neurological: alert and oriented Last oral intake: >/= 8 hours ASA classification: IV Emergent: no Anesthetic plan: proceed Anesthesia type and monitoring: general LMA and standard monitoring Results Review: All pre-operative results and documents have been reviewed as part of the pre- operative evaluation. Informed Consent: The patient's anesthetic plan and its attendant risks and benefits were discussed with the patient/family/POA. Questions were solicited and answers provided to the satisfaction of the patient/family/POA.
[2024-10-19] MEDS: VANCOMYCIN 1,250 MG/NS 250 ML 1,250 MG/250 ML BAG 166.67 MG IVPB (14:42)
--- NOTE | 2024-10-19 14:53 | WPDHPUPDATE1 ---
History and Physical Update Update Date/Time: 10/19/24 14:53 History and Physical has been reviewed, including an updated exam of the patient. There are NO changes in the patient's condition. Risks, benefits, and alternatives have been discussed and questions answered. Patient agrees to proceed with procedure.
[2024-10-19 15:53] LABS: Hemoglobin A1C 8.2 % (<5.7)
[2024-10-19 15:59] LABS: Vitamin D 25 Hydroxy < 12.8 ng/mL
--- NOTE | 2024-10-19 16:09 | W.PM.PROC2 ---
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 Anesthesia General (LMA) Indications Patient came to the emergency room early this morning and was noted to have gangrenous change with purulent drainage from an open wound on the distal plantar aspect of her left foot. Plain films showed osteomyelitis of multiple toes. The wound is draining large amounts of purulent fluid and has a foul odor. Patient does have some peripheral vascular disease and absent pulses in the foot. She is taken to surgery now for excisional debridement of infected and necrotic tissue, as well as drainage by of the foot abscess Findings Abscess extended from the webspace between the 1st and 2nd toes to the 4th toe. The web space between toes 1 and 2 had to be opened widely to achieve adequate drainage. Debridement of necrotic tissue as well as chronically infected tissue was carried out. The proximal phalanx of the 2nd toe was debrided. Tendinous and ligamentous structures were also removed as they were loose in the wound. Cultures were obtained for aerobes anaerobes and Gram stain. Description of Procedure Patient was taken to surgery and anesthesia was introduced. The left foot was prepped and draped. Putting pressure on the dorsum of the left foot produced several potholes of purulent drainage. I probed each of these with a curved clamp. They went to a common cavity posterior on the plantar surface. I opened the skin over this cavity and found additional purulent fluid and necrotic tissue. This included not only skin but subcutaneous and muscle. Some tendinous and ligamentous structures were included. I then probed between each of the openings that were draining fluid. There was subcutaneous connection between each. The overlying tissue, again including muscle and subcutaneous, was excised. Loose tendinous or expose ligamentous tissue was excised. There was still purulent fluid coming from the upper aspect of the plantar web space between the 1st and 2nd toes. Probing this showed a large cavity extending on the dorsum of the left foot. This was also opened, and debrided. The 2nd toe, proximal phalanx was involved in an abscess cavity and was exposed and debrided using bone cutters. The rest of the toe was left in place. I measured the resulting cavity and it measured 8 cm long by 4 cm wide by 2.5 cm deep. We irrigated the area thoroughly. Hemostasis was achieved with cautery. I then packed the wound with 1 in iodoform Nu Gauze. The foot was then dressed with bulky fluffs, ABDs and wrapped with Kerlix roll. Patient was awakened and extubated. She was transferred to recovery in good condition. Estimated Blood Loss -20 Drains No Packing Yes (1 in iodoform Nu Gauze) Pathology Other (Cultures for aerobes anaerobes and Gram stain) Complications None Condition Stable Disposition PACU [facility] Billing Surgery - Charge Forward: Surgery Billing (Excisional debridement skin subcutaneous muscle and bone left foot 8 x 4 x 2.5 cm)
[2024-10-19 16:17] LABS: Creatine Kinase 58 U/L (30-135)
[2024-10-19 16:29] LABS: Glucose Point of Care 105 mg/dl (65-105)
[2024-10-19] MEDS: LACTATED RINGERS 1,000 ML 100 ML IV CONT (18:52)
[2024-10-19] MEDS: PANTOPRAZOLE 40 MG TABLET PO (21:01)
--- NOTE | 2024-10-19 23:47 | ECHO_ITS ---
Patient Info Name: Ann Ovalles Age: 64 years : 1960 Gender: Female Ht: 62 in Wt: 141 lbs BSA: 1.69 m2 HR: 90 bpm BP: 117 / 65 mmHg Technical Quality: Good Exam Date: 10/19/2024 1:06 PM Exam Location: Echo Lab Patient Status: Inpatient Admit Date: 10/19/2024 Staff Ordering Physician: Taisha Navarro PA-C Account Strategist: Mary Jo Diaz RDCS Attending Provider: Martín Gilman PA-C Referring Physician: Melanie ESCOTO; Exam Type: CA echo doppler w bubble study Study Info Indications - Old stroke, chronic PE Complete two-dimensional, color flow and Doppler transthoracic echocardiogram is performed with agitated saline. Contrast/Agitated Saline Contrast/Ag. Saline: Agitated Saline Amount: 12.00 ml IV Access Condition: patent with no signs of infiltration Summary 1. Left ventricular chamber dimension is normal. 2. Left ventricular systolic function is normal, estimated at 65-70%. 3. The left ventricular diastolic function is grade I diastolic dysfunction. 4. E/e' 10 is mildly elevated. 5. Agitated saline injection with and without valsalva maneuver opacified right side cardiac chambers with few bubbles shunting to left side cardiac chambers suggestive of small patent foramen ovale. 6. There is moderate aortic valve sclerosis. 7. There is mild aortic valve stenosis with a peak velocity of 132 cm/s, mean gradient of 4 mmHg, and aortic valve area of 1.8 cm2. 8. No pulmonary hypertension, estimated pulmonary arterial systolic pressure is 30 mmHg. Left Ventricle E/e' 10 is mildly elevated. Left ventricular chamber dimension is normal. Left ventricular systolic function is normal, estimated at 65-70%. The left ventricular diastolic function is grade I diastolic dysfunction. Right Ventricle Right ventricular chamber dimension is normal. Right ventricular systolic function is normal. Left Atria Left atrial chamber dimension is normal. Right Atria Right atrial chamber dimension is normal. Atrial Septum Agitated saline injection with and without valsalva maneuver opacified right side cardiac chambers with few bubbles shunting to left side cardiac chambers suggestive of small patent foramen ovale. Interatrial septum not well visualized by 2D and agitated saline imaging. Aortic Valve The aortic valve is trileaflet. There is moderate aortic valve sclerosis. There is mild aortic valve stenosis with a peak velocity of 132 cm/s, mean gradient of 4 mmHg, and aortic valve area of 1.8 cm2. There is no aortic valve regurgitation. Pulmonic Valve There is no pulmonic regurgitation. Mitral Valve There is no mitral valve stenosis. There is no mitral valve regurgitation. Tricuspid Valve There is no tricuspid valve regurgitation. No pulmonary hypertension, estimated pulmonary arterial systolic pressure is 30 mmHg. Pericardium/Pleural There is no pericardial effusion. Inferior Vena Cava Normal inferior vena cava with >50% collapse upon inspiration consistent with normal right atrial pressure, 5 mmHg. Aorta The aortic root size at the sinus of Valsalva is normal. Left Ventricular Outflow Tract Name Value Normal LVOT 2D LVOT Diameter 1.6 cm LVOT Doppler LVOT Peak Gradient 6 mmHg LVOT Mean Gradient 3 mmHg LVOT VTI 22 cm LVOT VTI/AV VTI Ratio 0.9 LVOT Stroke Volume 47 ml LVOT CO 9.7 l/min LVOT CI 5.8 l/min/m2 Pulmonic Valve Name Value Normal PV Doppler PV Peak Gradient 6 mmHg Mitral Valve Name Value Normal MV Doppler MV Decel [place] 411 cm/s2 MV PHT 48 ms MV Area (PHT) 4.6 cm2 4.0-5.0 MV Diastolic Function MV E Peak Velocity 68 cm/s MV A Peak Velocity 113 cm/s MV E/A 0.6 MV Decel Time 166 ms MV Annular TDI MV E/e' (Septal) 11.4 <=8.0 MV E/e' (Lateral) 9.2 <=8.0 MV E/e' (Average) 10.3 Tricuspid Valve Name Value Normal TV Regurgitation Doppler TR Peak Velocity 251 cm/s TR Peak Gradient 25 mmHg Estimated PAP/RSVP RA Pressure 5 mmHg <=5 PA Systolic Pressure 30 mmHg <36 RV Systolic Pressure 30 mmHg <36 Aorta Name Value Normal Ascending Aorta Ao Root Diameter (MM) 3.1 cm Ao Root Diam Index (MM) 1.8 cm/m2 Aortic Valve Name Value Normal AV Doppler AV Peak Velocity 132 cm/s AV Peak Gradient 7 mmHg AV Mean Gradient 4 mmHg AV VTI 25 cm AV Area (Cont Eq VTI) 1.8 cm2 >=3.0 AV Area (Cont Eq Nhan) 1.9 cm2 AV Regurgitation 2D LVOT Area 2.1 cm2 Ventricles Name Value Normal LV Dimensions 2D/MM IVS Diastolic Thickness (2D) 1.1 cm 0.6-1.0 LVID Diastole (2D) 3.7 cm 3.8-5.2 LVIW Diastolic Thickness (2D) 0.9 cm 0.6-0.9 LVID Systole (2D) 2.3 cm 2.2-3.5 LVOT Diameter 1.6 cm LV Mass (2D Cubed) 112.05 g 67.00-162.00 LV Mass Index (2D Cubed) 66 g/m2 43-95 Relative Wall Thickness (2D) 0.49 LV Fractional Shortening/Ejection Fraction 2D/MM LV Fractional Shortening (2D) 37 % 27-45 LV EF (2D Teicholz) 67 % 54-74 LV Diastolic Volume (4C MOD) 58 ml LV EF (4C MOD) 70 % LV Diastolic Volume (2C MOD) 55 ml LV EF (2C MOD) 65 % LV Diastolic Volume (BP MOD) 56 ml 46-106 LV Diastolic Volume Index (BP MOD) 33 ml/m2 29-61 LV Systolic Volume (BP MOD) 18 ml 14-42 LV Systolic Volume Index (BP MOD) 11 ml/m2 8-24 LV EF (BP MOD) 68 % 54-74 LV Diastolic Length (4C) 6.6 cm LV Systolic Length (4C) 5.2 cm LV Stroke Volume (4C MOD) 41 ml RV Dimensions 2D/MM RVID Diastole (2D) 2.9 cm 2.5-3.5 Atria Name Value Normal LA Dimensions LA Dimension (MM) 2.4 cm 2.7-3.8 LA Volume (4C A-L) 25 ml LA Volume (BP A-L) 29 ml RA Dimensions RA Area (4C) 9.3 cm2 <=18.0 Report Signatures
[2024-10-20] VITALS (11 sets, daily range): BP systolic 101–120; BP diastolic 57–61; PULSE 60–90; RESP 18; TEMP 36.1–36.7; O2SAT 98–100
[2024-10-20] MEDS: CEFEPIME 1 GM/NS 50 ML 1 GM/50 ML BAG IVPB (00:43)
[2024-10-20 05:23] LABS: Glucose Point of Care 121 mg/dl (65-105)
[2024-10-20 05:37] LABS: Hematocrit 26.1 % (37.0-47.0); Mean Corpuscular HGB Conc 30.7 g/dl (32-36); Mean Corpuscular Hemoglobin 22.9 pg (26-34); Mean Corpuscular Volume 74.8 fl (80-100); Mean Platelet Volume 9.4 fl (7.4-10.4); Platelet Count Result 270 k/mm3 (150-375); Red Blood Count 3.49 M/mm3 (4.2-5.4); Red Cell Distribution Width 17.9 % (11.5-14.5); White Blood Count 9.1 K/mm3 (4.5-10.0)
[2024-10-20 06:00] LABS: Anion Gap 7 mmol/L (4-12); Blood Urea Nitrogen 8 mg/dL (7-17); Calcium 7.9 mg/dL (8.4-10.2); Carbon Dioxide 18 mmol/L (22-30); Chloride 110 mmol/L (98-107); Estimated CRCL calculation 62 ml/min; Estimated Glomerular Filt Rate > 60; Glucose 101 mg/dL (65-110); Potassium 3.3 mmol/L (3.4-5.0); Sodium 135 mmol/L (137-145)
[2024-10-20 06:12] LABS: CRP 13.8 mg/dL (<1.0)
--- NOTE | 2024-10-20 07:42 | WPDANESPN ---
Anes - Prog Note Post-Op Date/Time: 10/20/24 07:42 Cardiovascular status: normal Respiratory status: normal Airway patency: baseline Mental status: baseline Post-Op hydration status: normal Vital Signs: Last Vital Signs Temp 36.7 C 10/20/24 02:30 Pulse 88 10/20/24 04:00 Resp 18 10/20/24 02:30 BP 101/58 L 10/20/24 02:30 Pulse Ox 99 10/20/24 02:30 O2 Del Method Room Air 10/19/24 20:00 Pain Score (VAS): 1 I/O: Intake & Output 10/19/24 10/19/24 10/20/24 15:59 23:59 07:59 Intake Total 366 571 [id number] Output Total 250 Balance -421 275 2570 Laboratory Tests 10/20/24 05:15 10/20/24 05:15 10/19/24 10/19/24 10/19/24 05:31 05:42 05:43 WBC RBC Hgb Hct MCV MCH MCHC RDW Plt Count MPV Sodium Potassium Chloride Carbon Dioxide Anion Gap BUN Creatinine Estim Creat Clear Calc Estimated GFR Glucose POC Capillary Glucose Hemoglobin A1c 8.2 H Calcium % Saturation 16 L Total Creatine Kinase 58 C-Reactive Protein Vitamin D 25-Hydroxy < 12.8 10/19/24 10/19/24 10/19/24 12:11 16:26 21:02 WBC RBC Hgb Hct MCV MCH MCHC RDW Plt Count MPV Sodium Potassium Chloride Carbon Dioxide Anion Gap BUN Creatinine Estim Creat Clear Calc Estimated GFR Glucose POC Capillary Glucose 111 H 105 121 H Hemoglobin A1c Calcium % Saturation Total Creatine Kinase C-Reactive Protein Vitamin D 25-Hydroxy 10/20/24 05:15 WBC 9.1 RBC 3.49 L Hgb 8.0 L Hct 26.1 L MCV 74.8 L MCH 22.9 L MCHC 30.7 L RDW 17.9 H Plt Count 270 MPV 9.4 Sodium 135 L Potassium 3.3 L Chloride 110 H Carbon Dioxide 18 L Anion Gap 7 BUN 8 D Creatinine 0.62 L Estim Creat Clear Calc 62 Estimated GFR > 60 Glucose 101 POC Capillary Glucose Hemoglobin A1c Calcium 7.9 L % Saturation Total Creatine Kinase C-Reactive Protein 13.8 H Vitamin D 25-Hydroxy Microbiology 10/18/24 13:05 Blood Blood Culture - Preliminary 10/18/24 13:31 Blood Blood Culture - Preliminary 10/18/24 18:46 Foot - Unspecified Anaerobic Culture - Preliminary Post-procedural complaints: none Patient Feedback: Patient satisfied with anesthetic care.
--- NOTE | 2024-10-20 07:44 | P.PNIM_ITS ---
Progress Note: A&P Assessment and Plan (1) Cutaneous abscess of left foot: Code(s): L02.612 - Cutaneous abscess of left foot Status: Acute Assessment and Plan: - Foot XR: Findings suspicious for extensive forefoot osteomyelitis and septic arthritis involving the second through fourth rays. - General surgery consulted - Discussed with that wound unlikely to heal and will possibly need BKA - Foot wound cultured: Light growth of Staph A, no anaerobic isolates - Blood cultures negative for growth - Continue Cefepime, Flagyl and Vancomycin - POD 1 Excisional debridement skin subcutaneous and bone left foot performed on 10/19 (2) Osteomyelitis of left foot: Code(s): M86.9 - Osteomyelitis, unspecified Status: Acute Assessment and Plan: - See plan above - Likely BKA eventually - Obtain ABIs, pending (3) Septic arthritis of left foot: Code(s): M00.9 - Pyogenic arthritis, unspecified Status: Acute Assessment and Plan: - Likely attributed to abscess/osteomyelitis - Continue IV Abx - See above (4) Urinary tract infection: Code(s): N39.0 - Urinary tract infection, site not specified Status: Acute Assessment and Plan: - UA: Turbid, 6-10 RBC, Triple Phos Crystals present, heavy amorphous sediment, heavy urine mucus - Empiric Abx Cefepime, Flagyl, Vanc (5) Encephalopathy: Code(s): G93.40 - Encephalopathy, unspecified Status: Acute Assessment and Plan: - Multifactorial, likely chronic but exacerbated by UTI, osteomyelitis - Head CT: No acute intracranial process. - CT Brain Angio: Moderate calcified atheromatous disease is identified within the bilateral intracranial internal carotid arteries, resulting in mild stenosis without occlusion. - Brain MRI ordered - Pending info confirmation regarding [facility] from [facility] (6) Multiple wounds: Code(s): T07.XXXA - Unspecified multiple injuries, initial encounter Status: Acute Assessment and Plan: - See Assessment and Plan for left foot abscess, osteomyelitis, septic arthritis - Wound on right hip, underneath right breast/axilla, buttocks - Wound care consulted, continue with antifungal barrier cream - Right foot XR for multiple wounds: Deformities with chronic osteolysis centered at the right third and fourth metatarsophalangeal joints consistent with likely sequela of chronic tonsillitis. No evident acute osteomyelitis or other acute osseous abnormality (7) Thickening of wall of gallbladder: Code(s): K82.8 - Other specified diseases of gallbladder Status: Acute Assessment and Plan: - Chest/Abd/Pelvis CTA: Gallbladder hydrops with wall hyperemia, correlate with biliary labs and symptoms of right upper quadrant pain - Abdomen US: Biliary sludge with gallbladder wall thickening. Negative sonographic Cueva sign - Consult GI, agree likely incidental finding - No abdominal pain on exam, likely incidental finding - No further workup necessary (8) Chronic pulmonary embolism: Code(s): I27.82 - Chronic pulmonary embolism Status: Acute Assessment and Plan: - Chest/Abd/Pelvis CTA: Chronic pulmonary embolism in the right interlobar pulmonary artery. - Stable - Echocardiogram: Normal LV dimension, LV systolic normal, EF 65-70%, Grade 1 LV diastolic dysfxn, moderate AV stenosis, no pulm HTN - US Venous doppler LE BI: No lower extremity deep venous thrombosis. (9) Esophagitis with gastritis: Code(s): K29.70 - Gastritis, unspecified, without bleeding; K20.90 - Esophagitis, unspecified without bleeding Status: Acute Assessment and Plan: - Start Pantoprazole - Likely will need Upper +/- endoscopies - Consult GI - Stable (10) Conjunctivitis: Code(s): H10.9 - Unspecified conjunctivitis Status: Acute Assessment and Plan: - Conjunctival injection seen in left eye, with purulent drainage - Will start erythromycin ointment (11) Adult failure to thrive: Code(s): R62.7 - Adult failure to thrive Status: Acute Assessment and Plan: - Dietary consults - Adult Protective services to follow - Care coordination following - Plan on discharge is SNF placement (12) Lesion of left [place] kidney: Code(s): N28.9 - Disorder of kidney and ureter, unspecified Status: Acute Assessment and Plan: - Chest/Abd/Pelvis CTA: Indeterminate 2.0 cm left upper pole renal lesion, recommend nonemergent, outpatient CT or MRI with and without contrast for further evaluation. - Management to be outpatient (13) Type 2 diabetes mellitus: Code(s): E11.9 - Type 2 diabetes mellitus without complications Status: Acute Assessment and Plan: - hypoglycemia protocol - POC blood glucose ACHS - Initiate SSI - correct regimen ordered - low dose TIDWM and HS - A1C 8.2 (14) Vitamin D deficiency: Code(s): E55.9 - Vitamin D deficiency, unspecified Status: Acute Assessment and Plan: - Vitamin D 25 Hydroxy= <12.8 - Plan to replace, Ergocalciferol 50,000 units weekly (15) Electrolyte abnormality: Code(s): E87.8 - Other disorders of electrolyte and fluid balance, not elsewhere classified Status: Acute Assessment and Plan: In ED: Na 134, K 4.2, Ca 9.2 On 10/20: Na 135, K 3.3, Ca 7.9 Will supplement as necessary Monitor daily with [facility] Time Spent With Patient Time: Subjective Date/time seen: 10/20/24 07:44 Interval history: This is a 64-year-old female with type 2 diabetes mellitus, hypertension, hyperlipidemia, and significant hearing loss who presented to the emergency department via EMS for evaluation of weakness. She is a poor historian as she seems a bit confused and also due to her significant hearing loss. 10/20/2024 Patient is sitting in bed upon examination. POD 1 of Excisional debridement skin subcutaneous and bone left foot. Today patient is stable, afebrile and more a lert than yesterday but still lethargic. ROS continues to be difficult to ascertain as patient is nearly completely deaf but also some element of confusion may be present. Surgical wound appears to be healing appropriately. GI consulted for biliary sludge found on imaging, agree that finding is incidental and will defer further eval. Review of Systems Review of Systems: Unable to be obtained accurately as she is a poor historian and very hard of hearing. Exam Narrative: General: Chronically ill, disheveled female appearing older than her stated age, lying in bed. Weight: 64.4 kg. BMI: 26.0. HEENT: Normocephalic, atraumatic. No tenderness over the mastoids or protrusion of the pinnae. Bilateral mild exophthalmos. Sclerae anicteric. Conjunctiva are injected, left greater than right. Pupils are reactive. Extraocular motions appear to be intact. Dry mucous membranes. Poor dental hygiene with limited dentition. Neck: Supple. No nuchal rigidity, lymphadenopathy, or obvious thyromegaly or bruits. Respiratory: Respirations are nonlabored. Lung sounds are clear to auscultation. Cardiovascular: Regular rate and rhythm with S1-S2. Gastrointestinal: Abdomen is soft, nontender, and nondistended with positive bowel sounds. Skin: Warm and dry. Normal capillary refill. Intertrigo, worse in the right inguinal crease. There is mild hyperpigmentation over the upper anterior thighs and lower part of the panniculus. There is maceration and breakdown over the sacrum with shallow denuded, beefy red erythema extending from the right gluteus over the right flank and somewhat to the upper lateral right thigh. There are some scattered lesions in the right axilla. There is a large, open wound on the plantar aspect of the left foot over the metatarsal heads with visualized muscle and tendon. There is surrounding erythema and edema. Extremities: No cyanosis, clubbing, or significant edema. Neurological: Alert to self. She did not answer any other orientation questions. No focal motor deficits. No obvious facial asymmetry her stay. Noted to move upper and lower extremities though minimally. Unable to assess gait Psychiatric: Confused and mostly cooperative. Objective Data Vital Signs Vital Signs: Vital Signs - 24 hr 10/19/24 08:00 10/19/24 10:00 10/19/24 12:00 Temperature Pulse Rate 90 95 Respiratory Rate Blood Pressure Pulse Oximetry Oxygen Delivery Room Air 10/19/24 14:00 10/19/24 15:59 10/19/24 16:14 Temperature 97.9 F 97.4 F L Pulse Rate 90 86 91 Respiratory Rate 18 10 L 17 Blood Pressure 120/67 128/77 112/66 Pulse Oximetry 100 100 100 Oxygen Delivery Room Air Room Air Room Air 10/19/24 16:29 10/19/24 16:44 10/19/24 16:59 Temperature 97.3 F L Pulse Rate 91 90 88 Respiratory Rate 14 14 18 Blood Pressure 128/74 130/69 108/66 Pulse Oximetry 100 100 100 Oxygen Delivery Room Air Room Air Room Air 10/19/24 17:14 10/19/24 17:45 10/19/24 18:30 Temperature 97.3 F L 97.0 F L Pulse Rate 87 94 93 Respiratory Rate 15 18 18 Blood Pressure 104/65 122/70 106/57 L Pulse Oximetry 100 100 98 Oxygen Delivery Room Air 10/19/24 20:00 10/19/24 20:00 10/19/24 21:55 Temperature 97.3 F L Pulse Rate 99 99 Respiratory Rate 18 Blood Pressure 142/61 H Pulse Oximetry 97 Oxygen Delivery Room Air 10/20/24 00:00 10/20/24 02:30 10/20/24 04:00 Temperature 98.1 F Pulse Rate 84 89 88 Respiratory Rate 18 Blood Pressure 101/58 L Pulse Oximetry 99 Oxygen Delivery Intake/Output Intake/Output: Intake & Output 10/17/24 10/18/24 10/19/24 10/20/24 23:59 23:59 23:59 23:59 Intake Total 2550 950 1150 Output Total 700 Balance 2550 250 1150 Meds/Results Medications: Active Medications Generic Name Dose Route Start Last Admin Trade Name Freq PRN Reason Stop Dose Admin Acetaminophen 650 mg 10/18/24 18:28 Acetaminophen 325 Mg Tablet PO Q4H PRN Mild Pain (1-3) or Fever Atorvastatin Calcium 10 mg 10/19/24 09:00 10/19/24 09:24 Atorvastatin 10 Mg Tablet PO Not Given DAILY S[facility] Dextrose 12.5 gm 10/18/24 18:28 Dextrose 50% 25 Gm/50 Ml Syringe IV PUSH PRN PRN Hypoglycemia Protocol Empagliflozin 10 mg 10/19/24 09:00 10/19/24 09:24 Empagliflozin 10 Mg Tablet BY MOUTH Not Given DAILY [facility] Enoxaparin Sodium 40 mg 10/19/24 09:00 10/19/24 09:24 Enoxaparin 40 Mg/0.4 Ml Syringe SUB-Q Not Given DAILY [facility] Ergocalciferol 50,000 units 10/19/24 16:25 10/19/24 18:30 Ergocalciferol 50,000 Units Capsule PO Not Given Mo@0900 S[facility] Glucagon 1 mg 10/18/24 18:28 Glucagon For Inj 1 Mg Vial IM PRN PRN Hypoglycemia Protocol Glucose 15 gm 10/18/24 18:28 Glucose Oral Gel 15 Gm Of Glucse In 37.5 Gm Tube PO PRN PRN Hypoglycemia Protocol Vancomycin HCl 1,250 mg in 250 mls @ 166.667 mls/hr 10/19/24 14:00 10/19/24 16:12 Vancomycin 1,250 Mg/Ns 250 Ml IVPB Infused Q24H [facility] Infusion Dextrose 1,000 mls @ 100 mls/hr 10/18/24 18:28 Dextrose 5% 1,000 Ml IVPB PRN PRN Hypoglycemia Protocol Metronidazole 500 mg in 100 mls @ 100 mls/hr 10/19/24 00:00 10/20/24 00:54 Flagyl 500 Mg/Iso Soln 100 Ml IVPB Infused Q8H [facility] Infusion Cefepime HCl 1 gm in 50 mls @ 100 mls/hr 10/19/24 01:00 10/20/24 01:13 Maxipime 1 Gm/Ns 50 Ml IVPB Infused Q12H [facility] Infusion Insulin Aspart 1 - 3 units 10/19/24 21:00 10/19/24 21:04 Insulin Aspart (*Bkc) 100 Units/Ml SUB-Q Not Given HS S[facility] Protocol Insulin Aspart 3 - 6 units 10/19/24 08:00 10/19/24 18:30 Insulin Aspart (*Bkc) 100 Units/Ml SUB-Q Not Given TIDWM [facility] Protocol Metoprolol Succinate 200 mg 10/19/24 09:00 10/19/24 09:25 Metoprolol Succinate Ext Rel 100 Mg Tabcr PO Not Given DAILY [facility] Ondansetron HCl 4 mg 10/18/24 18:28 Ondansetron Inj 4 Mg/2 Ml Vial IV PUSH Q4H PRN Nausea Pantoprazole Sodium 40 mg 10/19/24 09:00 10/19/24 21:01 Pantoprazole 40 Mg Tablet PO 40 mg Q12HR S[facility] Administration Perflutren Lipid Microsphere 0 ml 10/18/24 23:47 Perflutren Lipid Microspheres 1.5 Ml Vial Diluted To 10 Ml Total Volume IV PUSH 10/21/24 23:47 ONCE PRN adequate visualization Protocol Radiology Results: ITS Impressions Chest X-Ray 10/18/24 14:03 IMPRESSION: No acute cardiopulmonary process. Head CT 10/18/24 14:32 IMPRESSION: No acute intracranial process. Right mastoid opacification, may represent effusion versus exudate. Correlate for clinical findings of mastoiditis. Cervical Spine CT 10/18/24 14:48 IMPRESSION: No acute fracture or traumatic malalignment in the cervical spine. Chest/Abdomen/Pelvis CTA 10/18/24 14:58 IMPRESSION: No CT evidence of acute pulmonary embolus. Chronic pulmonary embolism in the right interlobar pulmonary artery. Moderate esophagitis. Ascending thoracic aortic ectasia, measuring up to 4.2 cm. Mild gastritis. Peripheral, somewhat wedge-shaped splenic hypodensities may represent splenic infarcts. No embolic source is detected. Indeterminate 2.0 cm left upper pole renal lesion, recommend nonemergent, outpatient CT or MRI with and without contrast for further evaluation. Gallbladder hydrops with wall hyperemia, correlate with biliary labs and symptoms of right upper quadrant pain. Cystitis. Possible mild fecal impaction. Abdomen Ultrasound 10/18/24 16:50 IMPRESSION: Biliary sludge with gallbladder wall thickening. Negative sonographic Cueva sign. Venous Doppler Study 10/19/24 09:00 IMPRESSION: 1: No lower extremity deep venous thrombosis. Foot X-Ray 10/19/24 14:02 IMPRESSION: 1. Deformities with chronic osteolysis centered at the right third and fourth metatarsophalangeal joints consistent with likely sequela of chronic tonsillitis. No evident acute osteomyelitis or other acute osseous abnormality. Joints. 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 3. Tiny foreign body at a near the skin surface at the plantar aspect of the base of the second toe. CT Brain Angiography 10/19/24 20:50 IMPRESSION: Moderate calcified atheromatous disease is identified within the bilateral intracranial internal carotid arteries, resulting in mild stenosis without occlusion. Labs Labs: Laboratory Results - last 24 hr 10/19/24 10/19/24 10/19/24 05:31 05:42 05:43 WBC RBC Hgb Hct MCV MCH MCHC RDW Plt Count MPV Sodium Potassium Chloride Carbon Dioxide Anion Gap BUN Creatinine Estim Creat Clear Calc Estimated GFR Glucose POC Capillary Glucose Hemoglobin A1c 8.2 H Calcium % Saturation 16 L Total Creatine Kinase 58 C-Reactive Protein Vitamin D 25-Hydroxy < 12.8 10/19/24 10/19/24 10/19/24 12:11 16:26 21:02 WBC RBC Hgb Hct MCV MCH MCHC RDW Plt Count MPV Sodium Potassium Chloride Carbon Dioxide Anion Gap BUN Creatinine Estim Creat Clear Calc Estimated GFR Glucose POC Capillary Glucose 111 H 105 121 H Hemoglobin A1c Calcium % Saturation Total Creatine Kinase C-Reactive Protein Vitamin D 25-Hydroxy 10/20/24 05:15 WBC 9.1 RBC 3.49 L Hgb 8.0 L Hct 26.1 L MCV 74.8 L MCH 22.9 L MCHC 30.7 L RDW 17.9 H Plt Count 270 MPV 9.4 Sodium 135 L Potassium 3.3 L Chloride 110 H Carbon Dioxide 18 L Anion Gap 7 BUN 8 D Creatinine 0.62 L Estim Creat Clear Calc 62 Estimated GFR > 60 Glucose 101 POC Capillary Glucose Hemoglobin A1c Calcium 7.9 L % Saturation Total Creatine Kinase C-Reactive Protein 13.8 H Vitamin D 25-Hydroxy Quality VTE Prophylaxis VTE prophylaxis: pharmacologic ordered
[2024-10-20 08:37] LABS: Glucose Point of Care 89 mg/dl (65-105)
[2024-10-20] MEDS: EMPAGLIFLOZIN 10 MG TABLET BY MOUTH (09:01)
[2024-10-20] MEDS: PANTOPRAZOLE 40 MG TABLET PO ×2 (09:01→21:00)
[2024-10-20] MEDS: METOPROLOL SUCCINATE EXT REL 100 MG TABCR 200 MG PO (09:02)
[2024-10-20] MEDS: ENOXAPARIN 40 MG/0.4 ML SYRINGE SUB-Q (09:02)
[2024-10-20] MEDS: CEFEPIME 2 GM/NS 50 ML 2 GM/50 ML BAG IVPB ×2 (09:03→21:01)
[2024-10-20] MEDS: metroNIDAZOLE 500 MG/ISO 100ML 500 MG/100 ML BAG 100 MG IVPB ×2 (09:04→15:18)
[2024-10-20] MEDS: ATORVASTATIN 10 MG TABLET PO (09:05)
[2024-10-20 11:53] LABS: Glucose Point of Care 163 mg/dl (65-105)
--- NOTE | 2024-10-20 12:06 | P.PNGS_ITS ---
Subjective Subjective Date/Time Seen: 10/20/24 12:06 Patient reports: no new complaints (A little more awake) and afebrile Exam Const: General: lethargic and tired appearing Extrem: Left lower extremity: foot (Wound clean with no purulent fluid. No ischemic areas as yet) Details: other (Left foot plantar wound redressed with Nu gauze, fluffs, Kerlix.) Objective Data Vital Signs Vital Signs: Vital Signs - 24 hr 10/19/24 14:00 10/19/24 15:59 10/19/24 16:14 Temperature 36.6 C 36.3 C L Pulse Rate 90 86 91 Respiratory Rate 18 10 L 17 Blood Pressure 120/67 128/77 112/66 Pulse Oximetry 100 100 100 Oxygen Delivery Room Air Room Air Room Air 10/19/24 16:29 10/19/24 16:44 10/19/24 16:59 Temperature 36.3 C L Pulse Rate 91 90 88 Respiratory Rate 14 14 18 Blood Pressure 128/74 130/69 108/66 Pulse Oximetry 100 100 100 Oxygen Delivery Room Air Room Air Room Air 10/19/24 17:14 10/19/24 17:45 10/19/24 18:30 Temperature 36.3 C L 36.1 C L Pulse Rate 87 94 93 Respiratory Rate 15 18 18 Blood Pressure 104/65 122/70 106/57 L Pulse Oximetry 100 100 98 Oxygen Delivery Room Air 10/19/24 20:00 10/19/24 20:00 10/19/24 21:55 Temperature 36.3 C L Pulse Rate 99 99 Respiratory Rate 18 Blood Pressure 102/57 L Pulse Oximetry 100 Oxygen Delivery Room Air 10/20/24 00:00 10/20/24 02:30 10/20/24 04:00 Temperature 36.7 C Pulse Rate 84 89 88 Respiratory Rate 18 Blood Pressure 101/58 L Pulse Oximetry 99 Oxygen Delivery 10/20/24 06:00 10/20/24 08:00 10/20/24 09:02 Temperature 36.1 C L Pulse Rate 86 86 90 Respiratory Rate 18 Blood Pressure 120/57 L Pulse Oximetry 99 Oxygen Delivery 10/20/24 09:32 Temperature Pulse Rate Respiratory Rate Blood Pressure Pulse Oximetry Oxygen Delivery Room Air Intake/Output Intake/Output: Intake & Output 10/17/24 10/18/24 10/19/24 10/20/24 23:59 23:59 23:59 23:59 Intake Total 2550 971 1567 Output Total 700 700 Balance 2550 250 867 Meds/Results Medications: Active Medications Generic Name Dose Route Start Last Admin Trade Name Freq PRN Reason Stop Dose Admin Acetaminophen 650 mg 10/18/24 18:28 Acetaminophen 325 Mg Tablet PO Q4H PRN Mild Pain (1-3) or Fever Atorvastatin Calcium 10 mg 10/19/24 09:00 10/20/24 09:05 Atorvastatin 10 Mg Tablet PO 10 mg DAILY [facility] Administration Dextrose 12.5 gm 10/18/24 18:28 Dextrose 50% 25 Gm/50 Ml Syringe IV PUSH PRN PRN Hypoglycemia Protocol Empagliflozin 10 mg 10/19/24 09:00 10/20/24 09:01 Empagliflozin 10 Mg Tablet BY MOUTH 10 mg DAILY [facility] Administration Enoxaparin Sodium 40 mg 10/19/24 09:00 10/20/24 09:02 Enoxaparin 40 Mg/0.4 Ml Syringe SUB-Q 40 mg DAILY [facility] Administration Ergocalciferol 50,000 units 10/19/24 16:25 10/19/24 18:30 Ergocalciferol 50,000 Units Capsule PO Not Given Mo@0900 [facility] Glucagon 1 mg 10/18/24 18:28 Glucagon For Inj 1 Mg Vial IM PRN PRN Hypoglycemia Protocol Glucose 15 gm 10/18/24 18:28 Glucose Oral Gel 15 Gm Of Glucse In 37.5 Gm Tube PO PRN PRN Hypoglycemia Protocol Vancomycin HCl 1,250 mg in 250 mls @ 166.667 mls/hr 10/19/24 14:00 10/19/24 16:12 Vancomycin 1,250 Mg/Ns 250 Ml IVPB Infused Q24H [facility] Infusion Dextrose 1,000 mls @ 100 mls/hr 10/18/24 18:28 Dextrose 5% 1,000 Ml IVPB PRN PRN Hypoglycemia Protocol Metronidazole 500 mg in 100 mls @ 100 mls/hr 10/19/24 00:00 10/20/24 09:04 Flagyl 500 Mg/Iso Soln 100 Ml IVPB 100 mls/hr Q8H [facility] Administration Cefepime HCl 2 gm in 50 mls @ 100 mls/hr 10/20/24 09:00 10/20/24 09:03 Maxipime 2 Gm/Ns 50 Ml IVPB 100 mls/hr Q12HR [facility] Administration Insulin Aspart 1 - 3 units 10/19/24 21:00 10/19/24 21:04 Insulin Aspart (*Bkc) 100 Units/Ml SUB-Q Not Given HS [facility] Protocol Insulin Aspart 3 - 6 units 10/19/24 08:00 10/20/24 09:07 Insulin Aspart (*Bkc) 100 Units/Ml SUB-Q Not Given TIDWM [facility] Protocol Metoprolol Succinate 200 mg 10/19/24 09:00 10/20/24 09:02 Metoprolol Succinate Ext Rel 100 Mg Tabcr PO 200 mg DAILY [facility] Administration Ondansetron HCl 4 mg 10/18/24 18:28 Ondansetron Inj 4 Mg/2 Ml Vial IV PUSH Q4H PRN Nausea Pantoprazole Sodium 40 mg 10/19/24 09:00 10/20/24 09:01 Pantoprazole 40 Mg Tablet PO 40 mg Q12HR [facility] Administration Perflutren Lipid Microsphere 0 ml 10/18/24 23:47 Perflutren Lipid Microspheres 1.5 Ml Vial Diluted To 10 Ml Total Volume IV PUSH 10/21/24 23:47 ONCE PRN adequate visualization Protocol Radiology Results: ITS Impressions Chest X-Ray 10/18/24 14:03 IMPRESSION: No acute cardiopulmonary process. Head CT 10/18/24 14:32 IMPRESSION: No acute intracranial process. Right mastoid opacification, may represent effusion versus exudate. Correlate f or clinical findings of mastoiditis. Cervical Spine CT 10/18/24 14:48 IMPRESSION: No acute fracture or traumatic malalignment in the cervical spine. Chest/Abdomen/Pelvis CTA 10/18/24 14:58 IMPRESSION: No CT evidence of acute pulmonary embolus. Chronic pulmonary embolism in the right interlobar pulmonary artery. Moderate esophagitis. Ascending thoracic aortic ectasia, measuring up to 4.2 cm. Mild gastritis. Peripheral, somewhat wedge-shaped splenic hypodensities may represent splenic infarcts. No embolic source is detected. Indeterminate 2.0 cm left upper pole renal lesion, recommend nonemergent, outpatient CT or MRI with and without contrast for further evaluation. Gallbladder hydrops with wall hyperemia, correlate with biliary labs and symptoms of right upper quadrant pain. Cystitis. Possible mild fecal impaction. Abdomen Ultrasound 10/18/24 16:50 IMPRESSION: Biliary sludge with gallbladder wall thickening. Negative sonographic Cueva sign. Venous Doppler Study 10/19/24 09:00 IMPRESSION: 1: No lower extremity deep venous thrombosis. Foot X-Ray 10/19/24 14:02 IMPRESSION: 1. Deformities with chronic osteolysis centered at the right third and fourth metatarsophalangeal joints consistent with likely sequela of chronic tonsillitis. No evident acute osteomyelitis or other acute osseous abnormality. Joints. 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 3. Tiny foreign body at a near the skin surface at the plantar aspect of the base of the second toe. CT Brain Angiography 10/19/24 20:50 IMPRESSION: Moderate calcified atheromatous disease is identified within the bilateral intracranial internal carotid arteries, resulting in mild stenosis without occlusion. Labs Labs: Laboratory Results - last 24 hr 10/19/24 10/19/24 10/19/24 05:31 05:42 12:11 WBC RBC Hgb Hct MCV MCH MCHC RDW Plt Count MPV Sodium Potassium Chloride Carbon Dioxide Anion Gap BUN Creatinine Estim Creat Clear Calc Estimated GFR Glucose POC Capillary Glucose 111 H Hemoglobin A1c 8.2 H Calcium Total Creatine Kinase 58 C-Reactive Protein Vitamin D 25-Hydroxy < 12.8 10/19/24 10/19/24 10/20/24 16:26 21:02 05:15 WBC 9.1 RBC 3.49 L Hgb 8.0 L Hct 26.1 L MCV 74.8 L MCH 22.9 L MCHC 30.7 L RDW 17.9 H Plt Count 270 MPV 9.4 Sodium 135 L Potassium 3.3 L Chloride 110 H Carbon Dioxide 18 L Anion Gap 7 BUN 8 D Creatinine 0.62 L Estim Creat Clear Calc 62 Estimated GFR > 60 Glucose 101 POC Capillary Glucose 105 121 H Hemoglobin A1c Calcium 7.9 L Total Creatine Kinase C-Reactive Protein 13.8 H Vitamin D 25-Hydroxy 10/20/24 10/20/24 08:35 11:49 WBC RBC Hgb Hct MCV MCH MCHC RDW Plt Count MPV Sodium Potassium Chloride Carbon Dioxide Anion Gap BUN Creatinine Estim Creat Clear Calc Estimated GFR Glucose POC Capillary Glucose 89 163 H Hemoglobin A1c Calcium Total Creatine Kinase C-Reactive Protein Vitamin D 25-Hydroxy
--- NOTE | 2024-10-20 12:49 | P.CONGI_ITS ---
Assessment and Plan Assessment and plan (1) Gallbladder hydrops: Code(s): K82.1 - Hydrops of gallbladder Status: Acute Assessment and Plan: The patient's gallbladder distension and the presence of sludge is not currently and indication for any intervention. This is only an incidental finding and is not her major problem. We will defer further evaluation for now, and will re-evaluate her if her current clinical status changes. GI Consult Note Consult date/time: 10/20/24 12:49 HPI: Ann Ovalles is a 64 year old female Admitted on 10/18/2024 for weakness and disorientation, found defecating on herself for more than a month at home. She has a history of diabetes and hypertension and possible dementia. Her main problem is osteomyelitis and septic arthritis, multiple wounds on plantar aspect of bilateral feet. She is a possible candidate for left below-knee amputation according to surgical evaluation. The reason for the consultation is the incidental finding of sludge and gallbladder thickening on right upper quadrant sonogram, while searching for sources of sepsis. 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 Code status: Full code. Smoking status: Never smoker Second hand tobacco smoke exposure: Yes Alcohol intake: never Substance use: never Substance use type: does not use Do You Feel Safe in your Home?: Yes Lack of Transportation: No Lack of Food: Never True Current Housing: I Have Housing Concerned About Future Housing: No Difficulty Paying Gas/Electric Bills: No Difficulty Paying for Meds: No Currently Unemployed: No Education: High School Diploma/GED Difficulty w/ Childcare or Family Care: No Living arrangements: with family Additional living arrangements comments: Lives with spouse in [place]. Occupation/Education: unemployed Spiritual care concerns: No Meds Home Medications and Allergies Home Medications ?Medication ?Instructions ?Recorded ?Confirmed ?Type flash glucose sensor (FreeStyle #1 ea 05/13/23 10/18/24 Rx Nithin 14 Day Sensor kit) metoprolol succinate 200 mg 200 mg PO DAILY #90 tabs 01/09/24 10/18/24 Rx tablet,extended release 24 hr atorvastatin 10 mg tablet 10 mg PO DAILY 05/04/24 10/18/24 History metformin 500 mg tablet 500 mg PO BID 05/04/24 10/18/24 History dapagliflozin propanediol 5 mg 5 mg PO DAILY 10/18/24 10/18/24 History tablet (Farxiga) Allergies Allergy/AdvReac Type Severity Reaction Status Date / Time No Known Allergies Allergy Verified 05/13/23 14:13 Vital Signs Vital Signs - 24 hr 10/19/24 14:00 10/19/24 15:59 10/19/24 16:14 Temperature 97.9 F 97.4 F L Pulse Rate 90 86 91 Respiratory Rate 18 10 L 17 Blood Pressure 120/67 128/77 112/66 Pulse Oximetry 100 100 100 Oxygen Delivery Room Air Room Air Room Air 10/19/24 16:29 10/19/24 16:44 10/19/24 16:59 Temperature 97.3 F L Pulse Rate 91 90 88 Respiratory Rate 14 14 18 Blood Pressure 128/74 130/69 108/66 Pulse Oximetry 100 100 100 Oxygen Delivery Room Air Room Air Room Air 10/19/24 17:14 10/19/24 17:45 10/19/24 18:30 Temperature 97.3 F L 97.0 F L Pulse Rate 87 94 93 Respiratory Rate 15 18 18 Blood Pressure 104/65 122/70 106/57 L Pulse Oximetry 100 100 98 Oxygen Delivery Room Air 10/19/24 20:00 10/19/24 20:00 10/19/24 21:55 Temperature 97.3 F L Pulse Rate 99 99 Respiratory Rate 18 Blood Pressure 102/57 L Pulse Oximetry 100 Oxygen Delivery Room Air 10/20/24 00:00 10/20/24 02:30 10/20/24 04:00 Temperature 98.1 F Pulse Rate 84 89 88 Respiratory Rate 18 Blood Pressure 101/58 L Pulse Oximetry 99 Oxygen Delivery 10/20/24 06:00 10/20/24 08:00 10/20/24 09:02 Temperature 97.0 F L Pulse Rate 86 86 90 Respiratory Rate 18 Blood Pressure 120/57 L Pulse Oximetry 99 Oxygen Delivery 10/20/24 09:32 Temperature Pulse Rate Respiratory Rate Blood Pressure Pulse Oximetry Oxygen Delivery Room Air Exam 2 Const: General: lethargic and tired appearing Extrem: Left lower extremity: foot (Wound clean with no purulent fluid. No ischemic areas as yet) Details: other (Left foot plantar wound redressed with Nu gauze, fluffs, Kerlix.) Results Labs 10/20/24 05:15 10/20/24 05:15 Labs: Short CBC 10/20/24 Range/Units 05:15 WBC 9.1 (4.5-10.0) K/mm3 Hgb 8.0 L (12.0-15.0) g/dL Hct 26.1 L (37.0-47.0) % Plt Count 270 (150-375) k/mm3 BMP 10/20/24 05:15 Sodium 135 L Potassium 3.3 L Chloride 110 H Carbon Dioxide 18 L BUN 8 D Creatinine 0.62 L Glucose 101 Calcium 7.9 L Cardiac Enzymes 10/19/24 Range/Units 05:31 Total Creatine Kinase 58 (30-135) U/L
[2024-10-20] MEDS: ACETAMINOPHEN 325 MG TABLET 650 MG PO ×2 (13:19→21:00)
[2024-10-20 14:14] LABS: Vancomycin Trough 9.4 ug/mL (10.0-20.0)
[2024-10-20] MEDS: VANCOMYCIN 1,250 MG/NS 250 ML 1,250 MG/250 ML BAG 166.67 MG IVPB (15:17)
[2024-10-20 17:09] LABS: Glucose Point of Care 160 mg/dl (65-105)
[2024-10-20] MEDS: POTASSIUM CHLORIDE 20 MEQ ER TABLET PO (17:25)
[2024-10-20] MEDS: ERYTHROMYCIN OPHTH OINTMENT 1 GM TUBE 1 APPLIC EACH EYE ×2 (17:25→21:01)
[2024-10-21] VITALS (10 sets, daily range): BP systolic 102–132; BP diastolic 47–104; PULSE 59–73; RESP 14–18; TEMP 36.1–36.5; O2SAT 100
[2024-10-21] MEDS: metroNIDAZOLE 500 MG/ISO 100ML 500 MG/100 ML BAG 100 MG IVPB ×2 (00:03→09:47)
[2024-10-21 01:21] LABS: Glucose Point of Care 130 mg/dl (65-105)
[2024-10-21] MEDS: VANCOMYCIN 1,250 MG/NS 250 ML 1,250 MG/250 ML BAG 166.67 MG IVPB (02:39)
[2024-10-21 05:34] LABS: Basophils Absolute Auto 0.1 K/mm3 (0.0-0.1); Eosinophils Absolute Auto 0.2 K/mm3 (0-0.3); Eosinophils Percent Auto 3.2 % (0-4.4); Hematocrit 31.5 % (37.0-47.0); Hemoglobin 9.4 g/dL (12.0-15.0); Immature Granulocyte Absolute 0.07 K/mm3 (0.00-0.031); Lymphocytes Absolute Auto 0.74 K/mm3 (0.9-3.2); Lymphocytes Percent Auto 10.8 % (18.3-44.2); Mean Corpuscular HGB Conc 29.8 g/dl (32-36); Mean Corpuscular Hemoglobin 22.7 pg (26-34); Mean Corpuscular Volume 76.1 fl (80-100); Mean Platelet Volume 9.4 fl (7.4-10.4); Monocytes Absolute Auto 0.7 K/mm3 (0.1-0.6); Monocytes Percent Auto 9.9 % (2.6-8.5); Neutrophils Absolute Auto 5.1 K/mm3 (1.3-6.7); Neutrophils Percent Auto 74.1 % (45.5-73.1); Platelet Count Result 262 k/mm3 (150-375); Red Blood Count 4.14 M/mm3 (4.2-5.4); Red Cell Distribution Width 18.1 % (11.5-14.5); White Blood Count 6.9 K/mm3 (4.5-10.0)
[2024-10-21] MEDS: ERYTHROMYCIN OPHTH OINTMENT 1 GM TUBE 1 APPLIC EACH EYE ×5 (05:39→21:04)
[2024-10-21 05:50] LABS: Anion Gap 6 mmol/L (4-12); Blood Urea Nitrogen 7 mg/dL (7-17); Calcium 7.9 mg/dL (8.4-10.2); Carbon Dioxide 19 mmol/L (22-30); Chloride 110 mmol/L (98-107); Estimated CRCL calculation 79 ml/min; Estimated Glomerular Filt Rate > 60; Glucose 91 mg/dL (65-110); Potassium 3.6 mmol/L (3.4-5.0); Sodium 135 mmol/L (137-145)
[2024-10-21 06:47] LABS: Anisocytosis 1+; Hypochromasia 1+; Platelet Estimate Adequate (Adequate); Schistocytes None Seen
[2024-10-21 06:48] LABS: Band Neutrophils Percent 0 % (0-6)
[2024-10-21 06:50] LABS: Burr Cells 1+
[2024-10-21 08:47] LABS: Glucose Point of Care 90 mg/dl (65-105)
[2024-10-21] MEDS: PANTOPRAZOLE 40 MG TABLET PO ×2 (09:46→21:04)
[2024-10-21] MEDS: EMPAGLIFLOZIN 10 MG TABLET BY MOUTH (09:46)
[2024-10-21] MEDS: METOPROLOL SUCCINATE EXT REL 100 MG TABCR 200 MG PO (09:46)
[2024-10-21] MEDS: ATORVASTATIN 10 MG TABLET PO (09:46)
[2024-10-21] MEDS: CEFEPIME 2 GM/NS 50 ML 2 GM/50 ML BAG IVPB (09:47)
[2024-10-21] MEDS: ENOXAPARIN 40 MG/0.4 ML SYRINGE SUB-Q (09:50)
--- NOTE | 2024-10-21 09:51 | P.CDI_ITS ---
CDI Query Clarification Request ER provider documented sepsis, but not mentioned in progress notes Please clarify is sepsis was ruled in or ruled out The medical chart reflects the following: Patient presents the EMS after they called a code sepsis. Patient has been lying her couch approximately month. Prior to this alert oriented x4 but reportedly alert oriented times 0 for the past month until she became alert and oriented x1 today at which point her called 911. Patient initially hypotensive and tachycardic. Temp sensing Zuniga 96.9 at 13:27 Do not initially have a weight but in presumption of sepsis and therefore needing to administer 30 cc/kg, 2 L IV fluid are ordered promptly as are broad spectrum antibiotics. After weight obtained, it is determined that 2L is 30cc/kg. Urine on urinalysis concerning for marked infection. Urine drug screen unable to be processed given how turbid urine is per lab. It is later processed off of a new sample after IV fluids and is negative. Her blood pressure does improve with multiple repeat assessments that are nor motensive or even slight hypertension. Lactic acid mildly elevated. Lipase mildly elevated but not greater than 3 times upper limit of normal. She has a leukocytosis and thrombocytosis. Clinical Impression: Sepsis, Encephalopathy, Leukocytosis, Thrombocytosis, UTI (urinary tract infection), Hyperglycemia due to diabetes mellitus, CRP elevated, Adult failure to thrive, Aortic ectasia, thoracic, Esophagitis with gastritis, Renal lesion, Gallbladder hydrops, Cystitis, Biliary sludge determined by ultrasound, Foot osteomyelitis, left, Septic arthritis of left foot, Hemoglobin A1c 8.0% or greater WBC 10/18: 15.1, 10/19: 9.0 Lactic acid 10/18: 2.4, 1.6 IV abx <Verito Ng RN - Last Filed: 10/21/24 09:59> Clarified Diagnosis Clarified Diagnosis: The diagnosis of septic arthritis is currently active not sure that adding sepsis really needs to be added <KAYLYNN Villa - Last Filed: 10/21/24 14:55>
--- NOTE | 2024-10-21 10:54 | PCPTNOTE ---
Attempted to see patient for PT, however patient refused to participate or transfers from bed. Patient initially agreed to working with PT and getting up to chair, however while scooting patient to edge of bed, patient changed her mine and refused to sit up and reported she wanted to be left alone. Encouraged patient for participation and educated patient on the importance of therapy, patient continued to refused. Assisted patient's legs back into bed and scooting patient up for repositioning.
--- NOTE | 2024-10-21 11:37 | PM.PNGS ---
Progress Note: A&P Assessment and Plan (1) Foot abscess, left: Code(s): L02.612 - Cutaneous abscess of left foot Status: Acute Assessment and Plan: S/p debridement of left foot wound down to bone. No gangrene or significant purulent drainage on exam today with overall erythema and swelling improving. Continue local wound care for now. Her left foot wound with osteomyelitis and septic arthritis is extensive and her foot is not salvageable. This does not appear that it would heal with local wound care and antibiotics. She will need an amputation to some degree. Transmetatarsal amputation is not an option as she does not have viable tissue for a posterior flap given the extent of the infection. We would recommend either a BKA or an AKA. The arterial duplex showed triphasic waveforms throughout the arteries in left lower limb, which suggests good arterial flow to allow for a BKA to heal. She doesn't have a severe flexion contracture of that left knee but does lack good mobility in her lower legs with her recent decline and immobility. I am able to actively straighten her left knee. Will discuss surgical options with the patient's later today and we will plan accordingly as this is nonemergent. (2) Osteomyelitis of left foot: Code(s): M86.9 - Osteomyelitis, unspecified Status: Acute Assessment and Plan: Continue IV antibiotics. Will eventually need an amputation as mentioned above, but it is not emergent now that she has source control. Will discuss options with her . (3) Septic arthritis of left foot: Code(s): M00.9 - Pyogenic arthritis, unspecified Status: Acute Assessment and Plan: Continue IV antibiotics, see plan above. (4) Sepsis: Code(s): A41.9 - Sepsis, unspecified organism Status: Acute Assessment and Plan: Secondary to UTI vs more likely pyogenic septic arthritis with osteomyelitis. WBC normalized. She now source control status post debridement in the OR, but will eventually need further surgery. Continue IV antibiotics for now. Blood cultures showing growth of gram-positive cocci. Wound cultures with growth of MSSA. (5) Multiple wounds: Code(s): T07.XXXA - Unspecified multiple injuries, initial encounter Status: Acute Assessment and Plan: Continue local wound care with antifungal barrier cream to her other wounds on her right hip, axilla, and beneath her breast. See plan above for foot wounds. (6) Adult failure to thrive: Code(s): R62.7 - Adult failure to thrive Status: Acute (7) Type 2 diabetes mellitus: Code(s): E11.9 - Type 2 diabetes mellitus without complications Status: Acute (8) Chronic pulmonary embolism: Code(s): I27.82 - Chronic pulmonary embolism Status: Acute Plan I have discussed the patient's case and plan of care with Dr. Laureano. Subjective Subjective Date/Time Seen: 10/21/24 11:37 Interval history: Conversation is limited due to patient's severe difficulty with hearing. She is extremely hard of hearing and seems like it limits her ability to answer questions appropriately. Her is on the bedside this morning. She denies any pain at this time. Exam Const: General: comfortable and no acute distress Skin: Other: Right foot ulcers still with no drainage or erythema, there is dry firm eschar over the three ulcers on the plantar foot. Left foot dressings removed and there scant purulent drainage from the bottom of the wound, no gangrenous tissue. Erythema of the dorsal foot and swelling improved. Bone exposed in the wound bed with the 2nd and 3rd toes completely from the 2nd and 3rd metatarsal. Distal pulses not palpable bilaterally (DP and PT). Objective Data Vital Signs Vital Signs: Vital Signs - 24 hr 10/20/24 14:59 10/20/24 16:06 10/20/24 20:00 Temperature Pulse Rate 71 72 Respiratory Rate Blood Pressure Pulse Oximetry Oxygen Delivery Room Air Fraction of Inspired Oxygen 10/20/24 20:00 10/20/24 21:04 10/20/24 22:38 Temperature 97.5 F L Pulse Rate 65 60 Respiratory Rate 18 Blood Pressure 105/61 Pulse Oximetry 98 100 Oxygen Delivery Room Air Fraction of Inspired Oxygen 21 10/21/24 00:00 10/21/24 04:00 10/21/24 06:00 Temperature 97.0 F L Pulse Rate 59 L 60 63 Respiratory Rate 18 Blood Pressure 124/65 Pulse Oximetry 100 Oxygen Delivery Fraction of Inspired Oxygen 10/21/24 09:46 Temperature Pulse Rate 68 Respiratory Rate Blood Pressure Pulse Oximetry Oxygen Delivery Fraction of Inspired Oxygen Intake/Output Intake/Output: Intake & Output 10/18/24 10/19/24 10/20/24 10/21/24 23:59 23:59 23:59 23:59 Intake Total 2550 950 2297 910 Output Total 700 700 550 Balance 2550 250 1597 360 Meds/Results Medications: Active Medications Generic Name Dose Route Start Last Admin Trade Name Freq PRN Reason Stop Dose Admin Acetaminophen 650 mg 10/18/24 18:28 10/20/24 21:00 Acetaminophen 325 Mg Tablet PO 650 mg Q4H PRN Administration Mild Pain (1-3) or Fever Atorvastatin Calcium 10 mg 10/19/24 09:00 10/21/24 09:46 Atorvastatin 10 Mg Tablet PO 10 mg DAILY SUSY Administration Dextrose 12.5 gm 10/18/24 18:28 Dextrose 50% 25 Gm/50 Ml Syringe IV PUSH PRN PRN Hypoglycemia Protocol Doxycycline Hyclate 100 mg 10/21/24 21:00 Doxycycline Hyclate 100 Mg Tablet PO Q12HR SUSY Empagliflozin 10 mg 10/19/24 09:00 10/21/24 09:46 Empagliflozin 10 Mg Tablet BY MOUTH 10 mg DAILY SUSY Administration Enoxaparin Sodium 40 mg 10/19/24 09:00 10/21/24 09:50 Enoxaparin 40 Mg/0.4 Ml Syringe SUB-Q 40 mg DAILY SUSY Administration Ergocalciferol 50,000 units 10/19/24 16:25 10/19/24 18:30 Ergocalciferol 50,000 Units Capsule PO Not Given Mo@0900 SUSY Erythromycin 1 applic 10/20/24 17:00 10/21/24 09:46 Erythromycin Ophth Ointment 1 Gm Tube EACH EYE 1 applic Q4HWA SUSY Administration Glucagon 1 mg 10/18/24 18:28 Glucagon For Inj 1 Mg Vial IM PRN PRN Hypoglycemia Protocol Glucose 15 gm 10/18/24 18:28 Glucose Oral Gel 15 Gm Of Glucse In 37.5 Gm Tube PO PRN PRN Hypoglycemia Protocol Dextrose 1,000 mls @ 100 mls/hr 10/18/24 18:28 Dextrose 5% 1,000 Ml IVPB PRN PRN Hypoglycemia Protocol Ceftriaxone Sodium 2 gm in 100 mls @ 200 mls/hr 10/21/24 21:00 Rocephin 2 Gm/Ns 100 Ml IVPB Q24H SUSY Insulin Aspart 1 - 3 units 10/19/24 21:00 10/21/24 00:02 Insulin Aspart (*Bkc) 100 Units/Ml SUB-Q Not Given HS [facility] Protocol Insulin Aspart 3 - 6 units 10/19/24 08:00 10/21/24 09:47 Insulin Aspart (*Bkc) 100 Units/Ml SUB-Q Not Given TIDWM [facility] Protocol Metoprolol Succinate 200 mg 10/19/24 09:00 10/21/24 09:46 Metoprolol Succinate Ext Rel 100 Mg Tabcr PO 200 mg DAILY SUSY Administration Metronidazole 500 mg 10/21/24 16:00 Metronidazole 500 Mg Tablet PO Q8HR [facility] Ondansetron HCl 4 mg 10/18/24 18:28 Ondansetron Inj 4 Mg/2 Ml Vial IV PUSH Q4H PRN Nausea Pantoprazole Sodium 40 mg 10/19/24 09:00 10/21/24 09:46 Pantoprazole 40 Mg Tablet PO 40 mg Q12HR SUSY Administration Perflutren Lipid Microsphere 0 ml 10/18/24 23:47 Perflutren Lipid Microspheres 1.5 Ml Vial Diluted To 10 Ml Total Volume IV PUSH 10/21/24 23:47 ONCE PRN adequate visualization Protocol Radiology Results: ITS Impressions Chest X-Ray 10/18/24 14:03 IMPRESSION: No acute cardiopulmonary process. Head CT 10/18/24 14:32 IMPRESSION: No acute intracranial process. Right mastoid opacification, may represent effusion versus exudate. Correlate for clinical findings of mastoiditis. Cervical Spine CT 10/18/24 14:48 IMPRESSION: No acute fracture or traumatic malalignment in the cervical spine. Chest/Abdomen/Pelvis CTA 10/18/24 14:58 IMPRESSION: No CT evidence of acute pulmonary embolus. Chronic pulmonary embolism in the right interlobar pulmonary artery. Moderate esophagitis. Ascending thoracic aortic ectasia, measuring up to 4.2 cm. Mild gastritis. Peripheral, somewhat wedge-shaped splenic hypodensities may represent splenic infarcts. No embolic source is detected. Indeterminate 2.0 cm left upper pole renal lesion, recommend nonemergent, outpatient CT or MRI with and without contrast for further evaluation. Gallbladder hydrops with wall hyperemia, correlate with biliary labs and symptoms of right upper quadrant pain. Cystitis. Possible mild fecal impaction. Abdomen Ultrasound 10/18/24 16:50 IMPRESSION: Biliary sludge with gallbladder wall thickening. Negative sonographic Cueva sign. Venous Doppler Study 10/19/24 09:00 IMPRESSION: 1: No lower extremity deep venous thrombosis. Foot X-Ray 10/19/24 14:02 IMPRESSION: 1. Deformities with chronic osteolysis centered at the right third and fourth metatarsophalangeal joints consistent with likely sequela of chronic tonsillitis. No evident acute osteomyelitis or other acute osseous abnormality. Joints. 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 3. Tiny foreign body at a near the skin surface at the plantar aspect of the base of the second toe. CT Brain Angiography 10/19/24 20:50 IMPRESSION: Moderate calcified atheromatous disease is identified within the bilateral intracranial internal carotid arteries, resulting in mild stenosis without occlusion. Duplex Scan Lower Extremity Artery 10/20/24 17:17 IMPRESSION: 1. No discernible flow on color Doppler at the right posterior tibial and dorsalis pedis arteries. Triphasic waveforms with brisk systolic upstrokes at the remaining arteries in the right lower limb. 2. Triphasic waveforms with brisk systolic upstrokes throughout the arteries of the left lower limb. Labs Labs: Laboratory Results - last 24 hr 10/20/24 10/20/24 10/20/24 11:49 13:01 17:04 WBC RBC Hgb Hct MCV MCH MCHC RDW Plt Count MPV Immature Gran % (Auto) Neut % (Auto) Lymph % (Auto) [place] % (Auto) Eos % (Auto) Baso % (Auto) Lymph # (Auto) [place] # (Auto) Eos # (Auto) Baso # (Auto) Abs Immat Gran (auto) Absolute Neuts (auto) Absolute Nucleated RBC Band Neutrophils % Nucleated RBC % Platelet Estimate Hypochromasia Anisocytosis [place] Cells Schistocytes Sodium Potassium Chloride Carbon Dioxide Anion Gap BUN Creatinine Estim Creat Clear Calc Estimated GFR Glucose POC Capillary Glucose 163 H 160 H Calcium C-Reactive Protein Vancomycin Trough 9.4 L 10/20/24 10/21/24 10/21/24 21:23 05:19 08:41 WBC 6.9 RBC 4.14 L Hgb 9.4 L Hct 31.5 L MCV 76.1 L MCH 22.7 L MCHC 29.8 L RDW 18.1 H Plt Count 262 MPV 9.4 Immature Gran % (Auto) 1.0 H Neut % (Auto) 74.1 H Lymph % (Auto) 10.8 L [place] % (Auto) 9.9 H Eos % (Auto) 3.2 Baso % (Auto) 1.0 Lymph # (Auto) 0.74 L [place] # (Auto) 0.7 H Eos # (Auto) 0.2 Baso # (Auto) 0.1 Abs Immat Gran (auto) 0.07 H Absolute Neuts (auto) 5.1 Absolute Nucleated RBC 0.000 Band Neutrophils % 0 Nucleated RBC % 0.0 Platelet Estimate Adequate Hypochromasia 1+ Anisocytosis 1+ [place] Cells 1+ Schistocytes None seen Sodium 135 L Potassium 3.6 Chloride 110 H Carbon Dioxide 19 L Anion Gap 6 BUN 7 Creatinine 0.57 L Estim Creat Clear Calc 79 Estimated GFR > 60 Glucose 91 POC Capillary Glucose 130 H 90 Calcium 7.9 L C-Reactive Protein 13.0 H Vancomycin Trough
[2024-10-21 11:48] LABS: Glucose Point of Care 119 mg/dl (65-105)
--- NOTE | 2024-10-21 14:01 | PCPTNOTE ---
Attempted to see patient for PT, however patient refused. Patient reported she is strong enough and can do what she needs to. Requested patient participate in therapy to show how strong she is and patient refused. Patient's in room to encourage patient for participation, patient continued to refuse.
--- NOTE | 2024-10-21 14:55 | PM.IMPN ---
Progress Note: A&P Assessment and Plan (1) Cutaneous abscess of left foot: Code(s): L02.612 - Cutaneous abscess of left foot Status: Acute Assessment and Plan: - Foot XR: Findings suspicious for extensive forefoot osteomyelitis and septic arthritis involving the second through fourth rays. - General surgery consulted - Discussed with that wound unlikely to heal and will possibly need BKA - Foot wound cultured: Light growth of Staph A, no anaerobic isolates - Blood cultures negative for growth - Change antibiotics to ceftriaxone, doxy, metronidazole - POD 2 Excisional debridement skin subcutaneous and bone left foot performed on 10/19 (2) Osteomyelitis of left foot: Code(s): M86.9 - Osteomyelitis, unspecified Status: Acute Assessment and Plan: - See plan above - Likely BKA eventually - Obtain ABIs, pending BKA for most likely on Saturday Surgery has been consulted will need to get consent (3) Septic arthritis of left foot: Code(s): M00.9 - Pyogenic arthritis, unspecified Status: Acute Assessment and Plan: - Likely attributed to abscess/osteomyelitis - Continue IV Abx - See above As noted by the labs and vitals signs listed (4) Urinary tract infection: Code(s): N39.0 - Urinary tract infection, site not specified Status: Acute Assessment and Plan: - UA: Turbid, 6-10 RBC, Triple Phos Crystals present, heavy amorphous sediment, heavy urine mucus - Empiric Abx ceftriaxone Flagyl and doxy (5) Encephalopathy: Code(s): G93.40 - Encephalopathy, unspecified Status: Acute Assessment and Plan: - Multifactorial, likely chronic but exacerbated by UTI, osteomyelitis - Head CT: No acute intracranial process. - CT Brain Angio: Moderate calcified atheromatous disease is identified within the bilateral intracranial internal carotid arteries, resulting in mild stenosis without occlusion. - Brain MRI ordered - Pending info confirmation regarding [facility] from [facility] (6) Multiple wounds: Code(s): T07.XXXA - Unspecified multiple injuries, initial encounter Status: Acute Assessment and Plan: - See Assessment and Plan for left foot abscess, osteomyelitis, septic arthritis - Wound on right hip, underneath right breast/axilla, buttocks - Wound care consulted, continue with antifungal barrier cream - Right foot XR for multiple wounds: Deformities with chronic osteolysis centered at the right third and fourth metatarsophalangeal joints consistent with likely sequela of chronic tonsillitis. No evident acute osteomyelitis or other acute osseous abnormality (7) Thickening of wall of gallbladder: Code(s): K82.8 - Other specified diseases of gallbladder Status: Acute Assessment and Plan: - Chest/Abd/Pelvis CTA: Gallbladder hydrops with wall hyperemia, correlate with biliary labs and symptoms of right upper quadrant pain - Abdomen US: Biliary sludge with gallbladder wall thickening. Negative sonographic Cueva sign - Consult GI, agree likely incidental finding - No abdominal pain on exam, likely incidental finding - No further workup necessary (8) Chronic pulmonary embolism: Code(s): I27.82 - Chronic pulmonary embolism Status: Acute Assessment and Plan: - Chest/Abd/Pelvis CTA: Chronic pulmonary embolism in the right interlobar pulmonary artery. - Stable - Echocardiogram: Normal LV dimension, LV systolic normal, EF 65-70%, Grade 1 LV diastolic dysfxn, moderate AV stenosis, no pulm HTN - US Venous doppler LE BI: No lower extremity deep venous thrombosis. (9) Esophagitis with gastritis: Code(s): K29.70 - Gastritis, unspecified, without bleeding; K20.90 - Esophagitis, unspecified without bleeding Status: Acute Assessment and Plan: - Start Pantoprazole - Likely will need Upper +/- endoscopies - Consult GI - Stable (10) Conjunctivitis: Code(s): H10.9 - Unspecified conjunctivitis Status: Acute Assessment and Plan: - Conjunctival injection seen in left eye, with purulent drainage - Will start erythromycin ointment (11) Adult failure to thrive: Code(s): R62.7 - Adult failure to thrive Status: Acute Assessment and Plan: - Dietary consults - Adult Protective services to follow - Care coordination following - Plan on discharge is SNF placement (12) Lesion of left port gamble kidney: Code(s): N28.9 - Disorder of kidney and ureter, unspecified Status: Acute Assessment and Plan: - Chest/Abd/Pelvis CTA: Indeterminate 2.0 cm left upper pole renal lesion, recommend nonemergent, outpatient CT or MRI with and without contrast for further evaluation. - Management to be outpatient (13) Type 2 diabetes mellitus: Code(s): E11.9 - Type 2 diabetes mellitus without complications Status: Acute Assessment and Plan: - hypoglycemia protocol - POC blood glucose ACHS - Initiate SSI - correct regimen ordered - low dose TIDWM and HS - A1C 8.2 (14) Vitamin D deficiency: Code(s): E55.9 - Vitamin D deficiency, unspecified Status: Acute Assessment and Plan: - Vitamin D 25 Hydroxy= <12.8 - Plan to replace, Ergocalciferol 50,000 units weekly (15) Electrolyte abnormality: Code(s): E87.8 - Other disorders of electrolyte and fluid balance, not elsewhere classified Status: Acute Assessment and Plan: In ED: Na 134, K 4.2, Ca 9.2 On 10/20: Na 135, K 3.3, Ca 7.9 Will supplement as necessary Monitor daily with CMP Time Spent With Patient Time: 58 minutes Most time spent face to face with patient and the family in regard to plan of care. Time with patient: Greater than 35 minutes Subjective Date/time seen: 10/21/24 14:55 Interval history: This is a 64-year-old female with type 2 diabetes mellitus, hypertension, hyperlipidemia, and significant hearing loss who presented to the emergency department via EMS for evaluation of weakness. She is a poor historian as she seems a bit confused and also due to her significant hearing loss. 10/20/2024 Patient is sitting in bed upon examination. POD 1 of Excisional debridement skin subcutaneous and bone left foot. Today patient is stable, afebrile and more alert than yesterday but still lethargic. ROS continues to be difficult to ascertain as patient is nearly completely deaf but also some element of confusion may be present. Surgical wound appears to be healing appropriately. GI consulted for biliary sludge found on imaging, agree that finding is incidental and will defer further eval. Review of Systems Review of Systems: Unable to be obtained accurately as she is a poor historian and very hard of hearing. Exam Narrative: General: Chronically ill, disheveled female appearing older than her stated age, lying in bed. Weight: 64.4 kg. BMI: 26.0. HEENT: Normocephalic, atraumatic. No tenderness over the mastoids or protrusion of the pinnae. Bilateral mild exophthalmos. Sclerae anicteric. Conjunctiva are injected, left greater than right. Pupils are reactive. Extraocular motions appear to be intact. Dry mucous membranes. Poor dental hygiene with limited dentition. Neck: Supple. No nuchal rigidity, lymphadenopathy, or obvious thyromegaly or bruits. Respiratory: Respirations are nonlabored. Lung sounds are clear to auscultation. Cardiovascular: Regular rate and rhythm with S1-S2. Gastrointestinal: Abdomen is soft, nontender, and nondistended with positive bowel sounds. Skin: Warm and dry. Normal capillary refill. Intertrigo, worse in the right inguinal crease. There is mild hyperpigmentation over the upper anterior thighs and lower part of the panniculus. There is maceration and breakdown over the sacrum with shallow denuded, beefy red erythema extending from the right gluteus over the right flank and somewhat to the upper lateral right thigh. There are some scattered lesions in the right axilla. There is a large, open wound on the plantar aspect of the left foot over the metatarsal heads with visualized muscle and tendon. There is surrounding erythema and edema. Extremities: No cyanosis, clubbing, or significant edema. Neurological: Alert to self. She did not answer any other orientation questions. No focal motor deficits. No obvious facial asymmetry her stay. Noted to move upper and lower extremities though minimally. Unable to assess gait Psychiatric: Confused and mostly cooperative. Objective Data Vital Signs Vital Signs: Vital Signs - 24 hr 10/20/24 14:59 10/20/24 16:06 10/20/24 20:00 Temperature Pulse Rate 71 72 Respiratory Rate Blood Pressure Pulse Oximetry Oxygen Delivery Room Air Fraction of Inspired Oxygen 10/20/24 20:00 10/20/24 21:04 10/20/24 22:38 Temperature 97.5 F L Pulse Rate 65 60 Respiratory Rate 18 Blood Pressure 105/61 Pulse Oximetry 98 100 Oxygen Delivery Room Air Fraction of Inspired Oxygen 21 10/21/24 00:00 10/21/24 04:00 10/21/24 06:00 Temperature 97.0 F L Pulse Rate 59 L 60 63 Respiratory Rate 18 Blood Pressure 124/65 Pulse Oximetry 100 Oxygen Delivery Fraction of Inspired Oxygen 10/21/24 09:46 10/21/24 14:00 Temperature 97.7 F Pulse Rate 68 65 Respiratory Rate 14 Blood Pressure 132/104 H Pulse Oximetry 100 Oxygen Delivery Fraction of Inspired Oxygen Intake/Output Intake/Output: Intake & Output 10/18/24 10/19/24 10/20/24 10/21/24 23:59 23:59 23:59 23:59 Intake Total 2550 950 2297 1150 Output Total 499 738 7339 Balance 2550 250 1597 150 Meds/Results Medications: Active Medications Generic Name Dose Route Start Last Admin Trade Name Freq PRN Reason Stop Dose Admin Acetaminophen 650 mg 10/18/24 18:28 10/20/24 21:00 Acetaminophen 325 Mg Tablet PO 650 mg Q4H PRN Administration Mild Pain (1-3) or Fever Atorvastatin Calcium 10 mg 10/19/24 09:00 10/21/24 09:46 Atorvastatin 10 Mg Tablet PO 10 mg DAILY SUSY Administration Dextrose 12.5 gm 10/18/24 18:28 Dextrose 50% 25 Gm/50 Ml Syringe IV PUSH PRN PRN Hypoglycemia Protocol Doxycycline Hyclate 100 mg 10/21/24 21:00 Doxycycline Hyclate 100 Mg Tablet PO Q12HR SUSY Empagliflozin 10 mg 10/19/24 09:00 10/21/24 09:46 Empagliflozin 10 Mg Tablet BY MOUTH 10 mg DAILY SUSY Administration Enoxaparin Sodium 40 mg 10/19/24 09:00 10/21/24 09:50 Enoxaparin 40 Mg/0.4 Ml Syringe SUB-Q 40 mg DAILY SUSY Administration Ergocalciferol 50,000 units 10/19/24 16:25 10/19/24 18:30 Ergocalciferol 50,000 Units Capsule PO Not Given Mo@0900 SUSY Erythromycin 1 applic 10/20/24 17:00 10/21/24 14:28 Erythromycin Ophth Ointment 1 Gm Tube EACH EYE 1 applic Q4HWA SUSY Administration Glucagon 1 mg 10/18/24 18:28 Glucagon For Inj 1 Mg Vial IM PRN PRN Hypoglycemia Protocol Glucose 15 gm 10/18/24 18:28 Glucose Oral Gel 15 Gm Of Glucse In 37.5 Gm Tube PO PRN PRN Hypoglycemia Protocol Dextrose 1,000 mls @ 100 mls/hr 10/18/24 18:28 Dextrose 5% 1,000 Ml IVPB PRN PRN Hypoglycemia Protocol Ceftriaxone Sodium 2 gm in 100 mls @ 200 mls/hr 10/21/24 21:00 Rocephin 2 Gm/Ns 100 Ml IVPB Q24H SUSY Insulin Aspart 1 - 3 units 10/19/24 21:00 10/21/24 00:02 Insulin Aspart (*Bkc) 100 Units/Ml SUB-Q Not Given HS [facility] Protocol Insulin Aspart 3 - 6 units 10/19/24 08:00 04/02/25 14:12 Insulin Aspart (*Bkc) 100 Units/Ml SUB-Q Not Given TIDWM [facility] Protocol Metoprolol Succinate 200 mg 10/19/24 09:00 10/21/24 09:46 Metoprolol Succinate Ext Rel 100 Mg Tabcr PO 200 mg DAILY SUSY Administration Metronidazole 500 mg 10/21/24 16:00 Metronidazole 500 Mg Tablet PO Q8HR SUSY Ondansetron HCl 4 mg 10/18/24 18:28 Ondansetron Inj 4 Mg/2 Ml Vial IV PUSH Q4H PRN Nausea Pantoprazole Sodium 40 mg 10/19/24 09:00 10/21/24 09:46 Pantoprazole 40 Mg Tablet PO 40 mg Q12HR SUSY Administration Perflutren Lipid Microsphere 0 ml 10/18/24 23:47 Perflutren Lipid Microspheres 1.5 Ml Vial Diluted To 10 Ml Total Volume IV PUSH 10/21/24 23:47 ONCE PRN adequate visualization Protocol Radiology Results: ITS Impressions Chest X-Ray 10/18/24 14:03 IMPRESSION: No acute cardiopulmonary process. Head CT 10/18/24 14:32 IMPRESSION: No acute intracranial process. Right mastoid opacification, may represent effusion versus exudate. Correlate for clinical findings of mastoiditis. Cervical Spine CT 10/18/24 14:48 IMPRESSION: No acute fracture or traumatic malalignment in the cervical spine. Chest/Abdomen/Pelvis CTA 10/18/24 14:58 IMPRESSION: No CT evidence of acute pulmonary embolus. Chronic pulmonary embolism in the right interlobar pulmonary artery. Moderate esophagitis. Ascending thoracic aortic ectasia, measuring up to 4.2 cm. Mild gastritis. Peripheral, somewhat wedge-shaped splenic hypodensities may represent splenic infarcts. No embolic source is detected. Indeterminate 2.0 cm left upper pole renal lesion, recommend nonemergent, outpatient CT or MRI with and without contrast for further evaluation. Gallbladder hydrops with wall hyperemia, correlate with biliary labs and symptoms of right upper quadrant pain. Cystitis. Possible mild fecal impaction. Abdomen Ultrasound 10/18/24 16:50 IMPRESSION: Biliary sludge with gallbladder wall thickening. Negative sonographic Cueva sign. Venous Doppler Study 10/19/24 09:00 IMPRESSION: 1: No lower extremity deep venous thrombosis. Foot X-Ray 10/19/24 14:02 IMPRESSION: 1. Deformities with chronic osteolysis centered at the right third and fourth metatarsophalangeal joints consistent with likely sequela of chronic tonsillitis. No evident acute osteomyelitis or other acute osseous abnormality. Joints. 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 3. Tiny foreign body at a near the skin surface at the plantar aspect of the base of the second toe. CT Brain Angiography 10/19/24 20:50 IMPRESSION: Moderate calcified atheromatous disease is identified within the bilateral intracranial internal carotid arteries, resulting in mild stenosis without occlusion. Duplex Scan Lower Extremity Artery 10/20/24 17:17 IMPRESSION: 1. No discernible flow on color Doppler at the right posterior tibial and dorsalis pedis arteries. Triphasic waveforms with brisk systolic upstrokes at the remaining arteries in the right lower limb. 2. Triphasic waveforms with brisk systolic upstrokes throughout the arteries of the left lower limb. Labs Labs: Laboratory Results - last 24 hr 10/20/24 10/20/24 10/21/24 17:04 21:23 05:19 WBC 6.9 RBC 4.14 L Hgb 9.4 L Hct 31.5 L MCV 76.1 L MCH 22.7 L MCHC 29.8 L RDW 18.1 H Plt Count 262 MPV 9.4 Immature Gran % (Auto) 1.0 H Neut % (Auto) 74.1 H Lymph % (Auto) 10.8 L [place] % (Auto) 9.9 H Eos % (Auto) 3.2 Baso % (Auto) 1.0 Lymph # (Auto) 0.74 L [place] # (Auto) 0.7 H Eos # (Auto) 0.2 Baso # (Auto) 0.1 Abs Immat Gran (auto) 0.07 H Absolute Neuts (auto) 5.1 Absolute Nucleated RBC 0.000 Band Neutrophils % 0 Nucleated RBC % 0.0 Platelet Estimate Adequate Hypochromasia 1+ Anisocytosis 1+ [place] Cells 1+ Schistocytes None seen Sodium 135 L Potassium 3.6 Chloride 110 H Carbon Dioxide 19 L Anion Gap 6 BUN 7 Creatinine 0.57 L Estim Creat Clear Calc 79 Estimated GFR > 60 Glucose 91 POC Capillary Glucose 160 H 130 H Calcium 7.9 L C-Reactive Protein 13.0 H 10/21/24 10/21/24 08:41 11:44 WBC RBC Hgb Hct MCV MCH MCHC RDW Plt Count MPV Immature Gran % (Auto) Neut % (Auto) Lymph % (Auto) [place] % (Auto) Eos % (Auto) Baso % (Auto) Lymph # (Auto) [place] # (Auto) Eos # (Auto) Baso # (Auto) Abs Immat Gran (auto) Absolute Neuts (auto) Absolute Nucleated RBC Band Neutrophils % Nucleated RBC % Platelet Estimate Hypochromasia Anisocytosis [place] Cells Schistocytes Sodium Potassium Chloride Carbon Dioxide Anion Gap BUN Creatinine Estim Creat Clear Calc Estimated GFR Glucose POC Capillary Glucose 90 119 H Calcium C-Reactive Protein Quality VTE Prophylaxis VTE prophylaxis: pharmacologic ordered Hospitalist MIPS Advance Care Plan I have confirmed that the patient's Advanced Care Plan is present, code status is documented, or surrogate decision maker is listed in patient medical record.: Yes Medication Reconciliation I have utilized all available resources to obtain, update and review the patients current medications (includes all prescriptions, OTC, herbals, cannabis, and nutritional supplements).: Yes The patient is not eligible for med reconciliation; the patient is in a emergent medical situation where delaying treatment would jeopardize the patients health.: Yes
[2024-10-21 17:20] LABS: Glucose Point of Care 123 mg/dl (65-105)
[2024-10-21] MEDS: metroNIDAZOLE 500 MG TABLET PO ×2 (18:01→21:04)
[2024-10-21 20:27] LABS: Glucose Point of Care 114 mg/dl (65-105)
[2024-10-21] MEDS: DOXYCYCLINE HYCLATE 100 MG TABLET PO (21:04)
[2024-10-21] MEDS: cefTRIAXone 2 GM/NS 100 ML 2 GM/100 ML BAG IVPB (21:04)
[2024-10-22] VITALS (10 sets, daily range): BP systolic 128–143; BP diastolic 56–88; PULSE 63–74; RESP 17–18; TEMP 36.3–36.4; O2SAT 99–100
[2024-10-22] MEDS: ERYTHROMYCIN OPHTH OINTMENT 1 GM TUBE 1 APPLIC EACH EYE ×5 (04:58→20:36)
[2024-10-22] MEDS: metroNIDAZOLE 500 MG TABLET PO ×3 (05:01→22:00)
[2024-10-22 05:32] LABS: Basophils Percent Auto 0.6 % (0.2-1.2); Eosinophils Absolute Auto 0.1 K/mm3 (0-0.3); Eosinophils Percent Auto 1.7 % (0-4.4); Hematocrit 30.5 % (37.0-47.0); Hemoglobin 9.3 g/dL (12.0-15.0); Immature Granulocyte Absolute 0.08 K/mm3 (0.00-0.031); Immature Granulocyte Percent A 1.2 % (0-0.5); Lymphocytes Absolute Auto 0.78 K/mm3 (0.9-3.2); Lymphocytes Percent Auto 11.9 % (18.3-44.2); Mean Corpuscular HGB Conc 30.5 g/dl (32-36); Mean Corpuscular Hemoglobin 23.1 pg (26-34); Mean Corpuscular Volume 75.7 fl (80-100); Mean Platelet Volume 9.6 fl (7.4-10.4); Monocytes Absolute Auto 0.5 K/mm3 (0.1-0.6); Monocytes Percent Auto 8.2 % (2.6-8.5); Neutrophils Percent Auto 76.4 % (45.5-73.1); Platelet Count Result 264 k/mm3 (150-375); Red Blood Count 4.03 M/mm3 (4.2-5.4); Red Cell Distribution Width 18.3 % (11.5-14.5); White Blood Count 6.6 K/mm3 (4.5-10.0)
[2024-10-22 07:02] LABS: Anion Gap 8 mmol/L (4-12); Blood Urea Nitrogen 7 mg/dL (7-17); Calcium 7.8 mg/dL (8.4-10.2); Carbon Dioxide 17 mmol/L (22-30); Chloride 111 mmol/L (98-107); Estimated CRCL calculation 64 ml/min; Estimated Glomerular Filt Rate > 60; Glucose 102 mg/dL (65-110); Potassium 3.3 mmol/L (3.4-5.0); Sodium 136 mmol/L (137-145)
--- NOTE | 2024-10-22 08:04 | PM.IMPN ---
Progress Note: A&P Assessment and Plan (1) Cutaneous abscess of left foot: Code(s): L02.612 - Cutaneous abscess of left foot Status: Acute Assessment and Plan: - Foot XR: Findings suspicious for extensive forefoot osteomyelitis and septic arthritis involving the second through fourth rays. - General surgery consulted - Discussed with that wound unlikely to heal and will possibly need BKA - Foot wound cultured: Light growth of Staph A, no anaerobic isolates - Blood cultures negative for growth - Change antibiotics to ceftriaxone, doxy, metronidazole - POD 3 Excisional debridement skin subcutaneous and bone left foot performed on 10/19 - Will likely need amputation (2) Osteomyelitis of left foot: Code(s): M86.9 - Osteomyelitis, unspecified Status: Acute Assessment and Plan: - See plan above - Likely BKA eventually - Obtain ABIs, pending - BKA for most likely on Saturday - Surgery has been consulted - will need to get consent - Wound cultures grew Group B strep and MSSA - ID pharm following - Duplex doppler does so no flow on the right lower limb (3) Septic arthritis of left foot: Code(s): M00.9 - Pyogenic arthritis, unspecified Status: Acute Assessment and Plan: - Likely attributed to abscess/osteomyelitis - Continue IV Abx - See above - As noted by the labs and vitals signs listed (4) Urinary tract infection: Code(s): N39.0 - Urinary tract infection, site not specified Status: Acute Assessment and Plan: - UA: Turbid, 6-10 RBC, Triple Phos Crystals present, heavy amorphous sediment, heavy urine mucus - Empiric Abx ceftriaxone Flagyl and doxy (5) Encephalopathy: Code(s): G93.40 - Encephalopathy, unspecified Status: Acute Assessment and Plan: - Multifactorial, likely chronic but exacerbated by UTI, osteomyelitis - Head CT: No acute intracranial process. - CT Brain Angio: Moderate calcified atheromatous disease is identified within the bilateral intracranial internal carotid arteries, resulting in mild stenosis without occlusion. - Brain MRI ordered - Pending info confirmation regarding [facility] from [facility] (6) Multiple wounds: Code(s): T07.XXXA - Unspecified multiple injuries, initial encounter Status: Acute Assessment and Plan: - See Assessment and Plan for left foot abscess, osteomyelitis, septic arthritis - Wound on right hip, underneath right breast/axilla, buttocks - Wound care consulted, continue with antifungal barrier cream - Right foot XR for multiple wounds: Deformities with chronic osteolysis centered at the right third and fourth metatarsophalangeal joints consistent with likely sequela of chronic tonsillitis. No evident acute osteomyelitis or other acute osseous abnormality (7) Thickening of wall of gallbladder: Code(s): K82.8 - Other specified diseases of gallbladder Status: Acute Assessment and Plan: - Chest/Abd/Pelvis CTA: Gallbladder hydrops with wall hyperemia, correlate with biliary labs and symptoms of right upper quadrant pain - Abdomen US: Biliary sludge with gallbladder wall thickening. Negative sonographic Cueva sign - Consult GI, agree likely incidental finding - No abdominal pain on exam, likely incidental finding - No further workup necessary (8) Chronic pulmonary embolism: Code(s): I27.82 - Chronic pulmonary embolism Status: Acute Assessment and Plan: - Chest/Abd/Pelvis CTA: Chronic pulmonary embolism in the right interlobar pulmonary artery. - Stable - Echocardiogram: Normal LV dimension, LV systolic normal, EF 65-70%, Grade 1 LV diastolic dysfxn, moderate AV stenosis, no pulm HTN - US Venous doppler LE BI: No lower extremity deep venous thrombosis. (9) Esophagitis with gastritis: Code(s): K29.70 - Gastritis, unspecified, without bleeding; K20.90 - Esophagitis, unspecified without bleeding Status: Acute Assessment and Plan: - Start Pantoprazole - Likely will need Upper +/- endoscopies - Consult GI - Stable (10) Conjunctivitis: Code(s): H10.9 - Unspecified conjunctivitis Status: Acute Assessment and Plan: - Conjunctival injection seen in left eye, with purulent drainage - Will start erythromycin ointment (11) Adult failure to thrive: Code(s): R62.7 - Adult failure to thrive Status: Acute Assessment and Plan: - Dietary consults - Adult Protective services to follow - Care coordination following - Plan on discharge is SNF placement (12) Lesion of left nikolai kidney: Code(s): N28.9 - Disorder of kidney and ureter, unspecified Status: Acute Assessment and Plan: - Chest/Abd/Pelvis CTA: Indeterminate 2.0 cm left upper pole renal lesion, recommend nonemergent, outpatient CT or MRI with and without contrast for further evaluation. - Management to be outpatient (13) Type 2 diabetes mellitus: Code(s): E11.9 - Type 2 diabetes mellitus without complications Status: Acute Assessment and Plan: - hypoglycemia protocol - POC blood glucose ACHS - Initiate SSI - correct regimen ordered - low dose TIDWM and HS - A1C 8.2 - Glucose controlled at 102 (14) Vitamin D deficiency: Code(s): E55.9 - Vitamin D deficiency, unspecified Status: Acute Assessment and Plan: - Vitamin D 25 Hydroxy= <12.8 - Plan to replace, Ergocalciferol 50,000 units weekly (15) Electrolyte abnormality: Code(s): E87.8 - Other disorders of electrolyte and fluid balance, not elsewhere classified Status: Acute Assessment and Plan: In ED: Na 134, K 4.2, Ca 9.2 On 10/20: Na 135, K 3.3, Ca 7.9 Will supplement as necessary Monitor daily with CMP Time Spent With Patient Time: 56 minutes Time with patient: Greater than 35 minutes Subjective Date/time seen: 10/22/24 08:04 Interval history: This is a 64-year-old female with type 2 diabetes mellitus, hypertension, hyperlipidemia, and significant hearing loss who presented to the emergency department via EMS for evaluation of weakness. She is a poor historian as she seems a bit confused and also due to her significant hearing loss. 10/22/2024 Patient is lying in bed. Patient is still trying to determine whether not she wants to have the amputation versus hospice. Currently she denies any chest pain, shortness a breath, nausea, vomiting, diarrhea constipation. Review of Systems Review of Systems: Unable to be obtained accurately as she is a poor historian and very hard of hearing. Exam Narrative: General: Chronically ill, disheveled female appearing older than her stated age, lying in bed. Weight: 64.4 kg. BMI: 26.0. HEENT: Normocephalic, atraumatic. No tenderness over the mastoids or protrusion of the pinnae. Bilateral mild exophthalmos. Sclerae anicteric. Conjunctiva are injected, left greater than right. Pupils are reactive. Extraocular motions appear to be intact. Dry mucous membranes. Poor dental hygiene with limited dentition. Neck: Supple. No nuchal rigidity, lymphadenopathy, or obvious thyromegaly or bruits. Respiratory: Respirations are nonlabored. Lung sounds are clear to auscultation. Cardiovascular: Regular rate and rhythm with S1-S2. Gastrointestinal: Abdomen is soft, nontender, and nondistended with positive bowel sounds. Skin: Warm and dry. Normal capillary refill. Intertrigo, worse in the right inguinal crease. There is mild hyperpigmentation over the upper anterior thighs and lower part of the panniculus. There is maceration and breakdown over the sacrum with shallow denuded, beefy red erythema extending from the right gluteus over the right flank and somewhat to the upper lateral right thigh. There are some scattered lesions in the right axilla. There is a large, open wound on the plantar aspect of the left foot over the metatarsal heads with visualized muscle and tendon. There is surrounding erythema and edema. Extremities: No cyanosis, clubbing, or significant edema. Neurological: Alert to self. She did not answer any other orientation questions. No focal motor deficits. No obvious facial asymmetry her stay. Noted to move upper and lower extremities though minimally. Unable to assess gait Psychiatric: Confused and mostly cooperative. Objective Data Vital Signs Vital Signs: Vital Signs - 24 hr 10/21/24 09:46 10/21/24 12:00 10/21/24 14:00 Temperature 97.7 F Pulse Rate 68 73 65 Respiratory Rate 14 Blood Pressure 132/104 H Pulse Oximetry 100 Oxygen Delivery 10/21/24 16:00 10/21/24 20:00 10/21/24 20:00 Temperature Pulse Rate 65 67 Respiratory Rate Blood Pressure Pulse Oximetry Oxygen Delivery Room Air 10/21/24 20:14 10/22/24 00:00 10/22/24 04:00 Temperature 97.4 F L Pulse Rate 59 L 65 66 Respiratory Rate 16 Blood Pressure 102/47 L Pulse Oximetry 100 Oxygen Delivery 10/22/24 05:03 Temperature 97.4 F L Pulse Rate 70 Respiratory Rate 18 Blood Pressure 138/60 Pulse Oximetry 100 Oxygen Delivery Intake/Output Intake/Output: Intake & Output 10/19/24 10/20/24 10/21/24 10/22/24 23:59 23:59 23:59 23:59 Intake Total 950 2297 1490 Output Total 809 843 7226 350 Balance 250 1597 290 -350 Meds/Results Medications: Active Medications Generic Name Dose Route Start Last Admin Trade Name Freq PRN Reason Stop Dose Admin Acetaminophen 650 mg 10/18/24 18:28 10/20/24 21:00 Acetaminophen 325 Mg Tablet PO 650 mg Q4H PRN Administration Mild Pain (1-3) or Fever Atorvastatin Calcium 10 mg 10/19/24 09:00 10/21/24 09:46 Atorvastatin 10 Mg Tablet PO 10 mg DAILY SUSY Administration Dextrose 12.5 gm 10/18/24 18:28 Dextrose 50% 25 Gm/50 Ml Syringe IV PUSH PRN PRN Hypoglycemia Protocol Doxycycline Hyclate 100 mg 10/21/24 21:00 10/21/24 21:04 Doxycycline Hyclate 100 Mg Tablet PO 100 mg Q12HR SUSY Administration Empagliflozin 10 mg 10/19/24 09:00 10/21/24 09:46 Empagliflozin 10 Mg Tablet BY MOUTH 10 mg DAILY SUSY Administration Enoxaparin Sodium 40 mg 10/19/24 09:00 10/21/24 09:50 Enoxaparin 40 Mg/0.4 Ml Syringe SUB-Q 40 mg DAILY SUSY Administration Ergocalciferol 50,000 units 10/19/24 16:25 10/19/24 18:30 Ergocalciferol 50,000 Units Capsule PO Not Given Mo@0900 SUSY Erythromycin 1 applic 10/20/24 17:00 10/22/24 04:58 Erythromycin Ophth Ointment 1 Gm Tube EACH EYE 1 applic Q4HWA SUSY Administration Glucagon 1 mg 10/18/24 18:28 Glucagon For Inj 1 Mg Vial IM PRN PRN Hypoglycemia Protocol Glucose 15 gm 10/18/24 18:28 Glucose Oral Gel 15 Gm Of Glucse In 37.5 Gm Tube PO PRN PRN Hypoglycemia Protocol Dextrose 1,000 mls @ 100 mls/hr 10/18/24 18:28 Dextrose 5% 1,000 Ml IVPB PRN PRN Hypoglycemia Protocol Ceftriaxone Sodium 2 gm in 100 mls @ 200 mls/hr 10/21/24 21:00 10/21/24 21:34 Rocephin 2 Gm/Ns 100 Ml IVPB Infused Q24H SUSY Infusion Insulin Aspart 1 - 3 units 10/19/24 21:00 10/21/24 21:00 Insulin Aspart (*Bkc) 100 Units/Ml SUB-Q Not Given HS SUSY Protocol Insulin Aspart 3 - 6 units 10/19/24 08:00 10/21/24 17:53 Insulin Aspart (*Bkc) 100 Units/Ml SUB-Q Not Given TIDWM [facility] Protocol Metoprolol Succinate 200 mg 03/31/25 09:00 10/21/24 09:46 Metoprolol Succinate Ext Rel 100 Mg Tabcr PO 200 mg DAILY SUSY Administration Metronidazole 500 mg 10/21/24 16:00 10/22/24 05:01 Metronidazole 500 Mg Tablet PO 500 mg Q8HR [facility] Administration Ondansetron HCl 4 mg 10/18/24 18:28 Ondansetron Inj 4 Mg/2 Ml Vial IV PUSH Q4H PRN Nausea Pantoprazole Sodium 40 mg 10/19/24 09:00 10/21/24 21:04 Pantoprazole 40 Mg Tablet PO 40 mg Q12HR [facility] Administration Potassium Chloride 40 meq 10/22/24 08:05 Potassium Chloride 20 Meq Packet (For Liquid) PO 10/22/24 10:06 Q2H [facility] Radiology Results: ITS Impressions Chest X-Ray 10/18/24 14:03 IMPRESSION: No acute cardiopulmonary process. Head CT 10/18/24 14:32 IMPRESSION: No acute intracranial process. Right mastoid opacification, may represent effusion versus exudate. Correlate for clinical findings of mastoiditis. Cervical Spine CT 10/18/24 14:48 IMPRESSION: No acute fracture or traumatic malalignment in the cervical spine. Chest/Abdomen/Pelvis CTA 10/18/24 14:58 IMPRESSION: No CT evidence of acute pulmonary embolus. Chronic pulmonary embolism in the right interlobar pulmonary artery. Moderate esophagitis. Ascending thoracic aortic ectasia, measuring up to 4.2 cm. Mild gastritis. Peripheral, somewhat wedge-shaped splenic hypodensities may represent splenic infarcts. No embolic source is detected. Indeterminate 2.0 cm left upper pole renal lesion, recommend nonemergent, outpatient CT or MRI with and without contrast for further evaluation. Gallbladder hydrops with wall hyperemia, correlate with biliary labs and symptoms of right upper quadrant pain. Cystitis. Possible mild fecal impaction. Abdomen Ultrasound 10/18/24 16:50 IMPRESSION: Biliary sludge with gallbladder wall thickening. Negative sonographic Cueva sign. Venous Doppler Study 10/19/24 09:00 IMPRESSION: 1: No lower extremity deep venous thrombosis. Foot X-Ray 10/19/24 14:02 IMPRESSION: 1. Deformities with chronic osteolysis centered at the right third and fourth metatarsophalangeal joints consistent with likely sequela of chronic tonsillitis. No evident acute osteomyelitis or other acute osseous abnormality. Joints. 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 3. Tiny foreign body at a near the skin surface at the plantar aspect of the base of the second toe. CT Brain Angiography 10/19/24 20:50 IMPRESSION: Moderate calcified atheromatous disease is identified within the bilateral intracranial internal carotid arteries, resulting in mild stenosis without occlusion. Duplex Scan Lower Extremity Artery 10/20/24 17:17 IMPRESSION: 1. No discernible flow on color Doppler at the right posterior tibial and dorsalis pedis arteries. Triphasic waveforms with brisk systolic upstrokes at the remaining arteries in the right lower limb. 2. Triphasic waveforms with brisk systolic upstrokes throughout the arteries of the left lower limb. Labs Labs: Laboratory Results - last 24 hr 10/21/24 10/21/24 10/21/24 08:41 11:44 17:17 WBC RBC Hgb Hct MCV MCH MCHC RDW Plt Count MPV Immature Gran % (Auto) Neut % (Auto) Lymph % (Auto) [place] % (Auto) Eos % (Auto) Baso % (Auto) Lymph # (Auto) [place] # (Auto) Eos # (Auto) Baso # (Auto) Abs Immat Gran (auto) Absolute Neuts (auto) Absolute Nucleated RBC Nucleated RBC % Sodium Potassium Chloride Carbon Dioxide Anion Gap BUN Creatinine Estim Creat Clear Calc Estimated GFR Glucose POC Capillary Glucose 90 119 H 123 H Calcium C-Reactive Protein 10/21/24 10/22/24 20:13 05:11 WBC 6.6 RBC 4.03 L Hgb 9.3 L Hct 30.5 L MCV 75.7 L MCH 23.1 L MCHC 30.5 L RDW 18.3 H Plt Count 264 MPV 9.6 Immature Gran % (Auto) 1.2 H Neut % (Auto) 76.4 H Lymph % (Auto) 11.9 L [place] % (Auto) 8.2 Eos % (Auto) 1.7 Baso % (Auto) 0.6 Lymph # (Auto) 0.78 L [place] # (Auto) 0.5 Eos # (Auto) 0.1 Baso # (Auto) 0.0 Abs Immat Gran (auto) 0.08 H Absolute Neuts (auto) 5.0 Absolute Nucleated RBC 0.000 Nucleated RBC % 0.0 Sodium 136 L Potassium 3.3 L Chloride 111 H Carbon Dioxide 17 L Anion Gap 8 BUN 7 Creatinine 0.72 Estim Creat Clear Calc 64 Estimated GFR > 60 Glucose 102 POC Capillary Glucose 114 H Calcium 7.8 L C-Reactive Protein 7.0 H Quality VTE Prophylaxis VTE prophylaxis: pharmacologic ordered
[2024-10-22 08:48] LABS: Glucose Point of Care 86 mg/dl (65-105)
--- NOTE | 2024-10-22 09:25 | P.PNGS_ITS ---
Progress Note: A&P Assessment and Plan (1) Foot abscess, left: Code(s): L02.612 - Cutaneous abscess of left foot Status: Acute Assessment and Plan: S/p debridement of left foot wound with pyogenic septic arthritis. Continue local wound care for now. Her left foot infection is extensive and it does not appear that it will heal with local wound care and antibiotics. We would recommend proceeding with an above knee amputation. I have discussed treatment options at length with the regarding options for surgical management versus alternative conservative management and even Hospice. He is undecided as the patient, although confused, insists she does not want an amputation and has had a steady decline over the past few months with failure to thrive. He wishes to explore the option of Hospice, which I spoke with care coordination about this morning. This is also an open investigation with [facility]PS and it is not clear if she would even be able to go home with Hospice, which is something he is wanting to consider. CC is going to speak with [facility]PS and the again today. If he wishes to proceed with left BKA, then we can start planning for surgery which would be done during this hospitalization. Although if he is not agreeable to an amputation and he wants to consider Hospice, then we can continue local wound care for now, which would have to be done daily. I was clear with the that this wound will likely never heal and she will likely no longer be ambulatory due to the extensive infection and destruction of the bones and joints in her left foot. All of his questions were answered. Will follow along to see what is decided by family. (2) Osteomyelitis of left foot: Code(s): M86.9 - Osteomyelitis, unspecified Status: Acute Assessment and Plan: Continue IV antibiotics. See plan above. (3) Septic arthritis of left foot: Code(s): M00.9 - Pyogenic arthritis, unspecified Status: Acute Assessment and Plan: Continue IV antibiotics, see plan above. (4) Sepsis: Code(s): A41.9 - Sepsis, unspecified organism Status: Acute Assessment and Plan: Resolved s/p source control. Continue IV antibiotics for now. Blood cultures showing growth of gram-positive cocci in 1/2 bottles. Intraoperative wound cultures with growth of Staph aureus, group B Streptococcus, and Bacteroides pyogenes. (5) Multiple wounds: Code(s): T07.XXXA - Unspecified multiple injuries, initial encounter Status: Acute Assessment and Plan: Continue local wound care with antifungal barrier cream to her other wounds on her right hip, axilla, and beneath her breast. See plan above for foot wounds. (6) Adult failure to thrive: Code(s): R62.7 - Adult failure to thrive Status: Acute (7) Type 2 diabetes mellitus: Code(s): E11.9 - Type 2 diabetes mellitus without complications Status: Acute (8) Chronic pulmonary embolism: Code(s): I27.82 - Chronic pulmonary embolism Status: Acute Plan I have discussed the patient's case and plan of care with Dr. Laureano. Subjective Subjective Date/Time Seen: 10/22/24 09:25 Interval history: Patient extremely hard of hearing and still has some confusion. She denies any complaints at this time. I spoke with care coordination this morning as the was requesting to speak with hospice to better understand that option. Yesterday afternoon, I had a discussion with the at length regarding treatment options including both surgical management versus conservative management with movements towards hospice. The patient is disoriented and confused and unable to make her own decisions at this time. Although, when he speaks with her about an amputation she is adamant about not wanting this. Therefore, he feels like he wants to speak with hospice to see what his options would look like. Per care coordination, if she was to discharge to a long-term care facility for hospice, he would have to pay [id number] for the facility. He is also asking about taking her home on hospice, but she currently has [facility]PS following for a possible neglect case. Care coordination is going to speak with [facility]PS this morning to find out the status of her case. Exam Narrative: Gauze dressings dry and intact on both feet. Const: General: comfortable and no acute distress Orientation/consciousness: confusion Objective Data Vital Signs Vital Signs: Vital Signs - 24 hr 10/21/24 09:46 10/21/24 12:00 10/21/24 14:00 Temperature 97.7 F Pulse Rate 68 73 65 Respiratory Rate 14 Blood Pressure 132/104 H Pulse Oximetry 100 Oxygen Delivery 10/21/24 16:00 10/21/24 20:00 10/21/24 20:00 Temperature Pulse Rate 65 67 Respiratory Rate Blood Pressure Pulse Oximetry Oxygen Delivery Room Air 10/21/24 20:14 10/22/24 00:00 10/22/24 04:00 Temperature 97.4 F L Pulse Rate 59 L 65 66 Respiratory Rate 16 Blood Pressure 102/47 L Pulse Oximetry 100 Oxygen Delivery 10/22/24 05:03 Temperature 97.4 F L Pulse Rate 70 Respiratory Rate 18 Blood Pressure 138/60 Pulse Oximetry 100 Oxygen Delivery Intake/Output Intake/Output: Intake & Output 10/19/24 10/20/24 10/21/24 10/22/24 23:59 23:59 23:59 23:59 Intake Total 950 2297 1490 Output Total 496 516 6803 350 Balance 250 1597 290 -350 Meds/Results Medications: Active Medications Generic Name Dose Route Start Last Admin Trade Name Freq PRN Reason Stop Dose Admin Acetaminophen 650 mg 10/18/24 18:28 10/20/24 21:00 Acetaminophen 325 Mg Tablet PO 650 mg Q4H PRN Administration Mild Pain (1-3) or Fever Atorvastatin Calcium 10 mg 10/19/24 09:00 10/21/24 09:46 Atorvastatin 10 Mg Tablet PO 10 mg DAILY SUSY Administration Dextrose 12.5 gm 10/18/24 18:28 Dextrose 50% 25 Gm/50 Ml Syringe IV PUSH PRN PRN Hypoglycemia Protocol Doxycycline Hyclate 100 mg 10/21/24 21:00 10/21/24 21:04 Doxycycline Hyclate 100 Mg Tablet PO 100 mg Q12HR SUSY Administration Empagliflozin 10 mg 10/19/24 09:00 10/21/24 09:46 Empagliflozin 10 Mg Tablet BY MOUTH 10 mg DAILY SUSY Administration Enoxaparin Sodium 40 mg 10/19/24 09:00 10/21/24 09:50 Enoxaparin 40 Mg/0.4 Ml Syringe SUB-Q 40 mg DAILY SUSY Administration Ergocalciferol 50,000 units 10/19/24 16:25 10/19/24 18:30 Ergocalciferol 50,000 Units Capsule PO Not Given Mo@0900 SUSY Erythromycin 1 applic 10/20/24 17:00 10/22/24 04:58 Erythromycin Ophth Ointment 1 Gm Tube EACH EYE 1 applic Q4HWA SUSY Administration Glucagon 1 mg 10/18/24 18:28 Glucagon For Inj 1 Mg Vial IM PRN PRN Hypoglycemia Protocol Glucose 15 gm 10/18/24 18:28 Glucose Oral Gel 15 Gm Of Glucse In 37.5 Gm Tube PO PRN PRN Hypoglycemia Protocol Dextrose 1,000 mls @ 100 mls/hr 10/18/24 18:28 Dextrose 5% 1,000 Ml IVPB PRN PRN Hypoglycemia Protocol Ceftriaxone Sodium 2 gm in 100 mls @ 200 mls/hr 10/21/24 21:00 10/21/24 21:34 Rocephin 2 Gm/Ns 100 Ml IVPB Infused Q24H SUSY Infusion Insulin Aspart 1 - 3 units 10/19/24 21:00 10/21/24 21:00 Insulin Aspart (*Bkc) 100 Units/Ml SUB-Q Not Given HS [facility] Protocol Insulin Aspart 3 - 6 units 10/19/24 08:00 10/21/24 17:53 Insulin Aspart (*Bkc) 100 Units/Ml SUB-Q Not Given TIDWM [facility] Protocol Metoprolol Succinate 200 mg 10/19/24 09:00 10/21/24 09:46 Metoprolol Succinate Ext Rel 100 Mg Tabcr PO 200 mg DAILY SUSY Administration Metronidazole 500 mg 10/21/24 16:00 10/22/24 05:01 Metronidazole 500 Mg Tablet PO 500 mg Q8HR [facility] Administration Ondansetron HCl 4 mg 10/18/24 18:28 Ondansetron Inj 4 Mg/2 Ml Vial IV PUSH Q4H PRN Nausea Pantoprazole Sodium 40 mg 10/19/24 09:00 10/21/24 21:04 Pantoprazole 40 Mg Tablet PO 40 mg Q12HR SUSY Administration Potassium Chloride 40 meq 10/22/24 08:05 Potassium Chloride 20 Meq Packet (For Liquid) PO 10/22/24 10:06 Q2H [facility] Radiology Results: ITS Impressions Chest X-Ray 10/18/24 14:03 IMPRESSION: No acute cardiopulmonary process. Head CT 10/18/24 14:32 IMPRESSION: No acute intracranial process. Right mastoid opacification, may represent effusion versus exudate. Correlate for clinical findings of mastoiditis. Cervical Spine CT 10/18/24 14:48 IMPRESSION: No acute fracture or traumatic malalignment in the cervical spine. Chest/Abdomen/Pelvis CTA 10/18/24 14:58 IMPRESSION: No CT evidence of acute pulmonary embolus. Chronic pulmonary embolism in the right interlobar pulmonary artery. Moderate esophagitis. Ascending thoracic aortic ectasia, measuring up to 4.2 cm. Mild gastritis. Peripheral, somewhat wedge-shaped splenic hypodensities may represent splenic infarcts. No embolic source is detected. Indeterminate 2.0 cm left upper pole renal lesion, recommend nonemergent, outpatient CT or MRI with and without contrast for further evaluation. Gallbladder hydrops with wall hyperemia, correlate with biliary labs and symptoms of right upper quadrant pain. Cystitis. Possible mild fecal impaction. Abdomen Ultrasound 10/18/24 16:50 IMPRESSION: Biliary sludge with gallbladder wall thickening. Negative sonographic Cueva sign. Venous Doppler Study 10/19/24 09:00 IMPRESSION: 1: No lower extremity deep venous thrombosis. Foot X-Ray 10/19/24 14:02 IMPRESSION: 1. Deformities with chronic osteolysis centered at the right third and fourth metatarsophalangeal joints consistent with likely sequela of chronic tonsillitis. No evident acute osteomyelitis or other acute osseous abnormality. Joints. 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 3. Tiny foreign body at a near the skin surface at the plantar aspect of the base of the second toe. CT Brain Angiography 10/19/24 20:50 IMPRESSION: Moderate calcified atheromatous disease is identified within the bilateral intracranial internal carotid arteries, resulting in mild stenosis without oc clusion. Duplex Scan Lower Extremity Artery 10/20/24 17:17 IMPRESSION: 1. No discernible flow on color Doppler at the right posterior tibial and dorsalis pedis arteries. Triphasic waveforms with brisk systolic upstrokes at the remaining arteries in the right lower limb. 2. Triphasic waveforms with brisk systolic upstrokes throughout the arteries of the left lower limb. Labs Labs: Laboratory Results - last 24 hr 10/21/24 10/21/24 10/21/24 11:44 17:17 20:13 WBC RBC Hgb Hct MCV MCH MCHC RDW Plt Count MPV Immature Gran % (Auto) Neut % (Auto) Lymph % (Auto) [place] % (Auto) Eos % (Auto) Baso % (Auto) Lymph # (Auto) [place] # (Auto) Eos # (Auto) Baso # (Auto) Abs Immat Gran (auto) Absolute Neuts (auto) Absolute Nucleated RBC Nucleated RBC % Sodium Potassium Chloride Carbon Dioxide Anion Gap BUN Creatinine Estim Creat Clear Calc Estimated GFR Glucose POC Capillary Glucose 119 H 123 H 114 H Calcium C-Reactive Protein 10/22/24 10/22/24 05:11 08:46 WBC 6.6 RBC 4.03 L Hgb 9.3 L Hct 30.5 L MCV 75.7 L MCH 23.1 L MCHC 30.5 L RDW 18.3 H Plt Count 264 MPV 9.6 Immature Gran % (Auto) 1.2 H Neut % (Auto) 76.4 H Lymph % (Auto) 11.9 L [place] % (Auto) 8.2 Eos % (Auto) 1.7 Baso % (Auto) 0.6 Lymph # (Auto) 0.78 L [place] # (Auto) 0.5 Eos # (Auto) 0.1 Baso # (Auto) 0.0 Abs Immat Gran (auto) 0.08 H Absolute Neuts (auto) 5.0 Absolute Nucleated RBC 0.000 Nucleated RBC % 0.0 Sodium 136 L Potassium 3.3 L Chloride 111 H Carbon Dioxide 17 L Anion Gap 8 BUN 7 Creatinine 0.72 Estim Creat Clear Calc 64 Estimated GFR > 60 Glucose 102 POC Capillary Glucose 86 Calcium 7.8 L C-Reactive Protein 7.0 H
--- NOTE | 2024-10-22 10:13 | PCOTNOTE ---
Attempted to see Patient for OT treatment session at this time. Patient refused to participate in any activities. Patient was educated on the importance of activitiy and getting stronger. Patient adamantly declined, RN in room as well, assisted with encouragement.
[2024-10-22] MEDS: ATORVASTATIN 10 MG TABLET PO (10:23)
[2024-10-22] MEDS: DOXYCYCLINE HYCLATE 100 MG TABLET PO ×2 (10:23→20:36)
[2024-10-22] MEDS: EMPAGLIFLOZIN 10 MG TABLET BY MOUTH (10:23)
[2024-10-22] MEDS: POTASSIUM CHLORIDE 20 MEQ PACKET (FOR LIQUID) 40 MEQ PO ×2 (10:23→14:20)
[2024-10-22] MEDS: ENOXAPARIN 40 MG/0.4 ML SYRINGE SUB-Q (10:24)
[2024-10-22] MEDS: PANTOPRAZOLE 40 MG TABLET PO ×2 (10:24→20:36)
[2024-10-22] MEDS: METOPROLOL SUCCINATE EXT REL 100 MG TABCR 200 MG PO (10:26)
--- NOTE | 2024-10-22 10:41 | PCPTNOTE ---
Patient refused treatment this session. Patient reported she just wants to be left alone.
[2024-10-22 12:13] LABS: Glucose Point of Care 128 mg/dl (65-105)
--- NOTE | 2024-10-22 12:23 | PCNFU ---
Nutrition Follow-Up Complete: Severe protein calorie malnutrition related to failure to thrive as evidenced by intakes <75% needs >1 month; weight loss 16%/6 months goal: Adequate PO intake at least 75% meals and supplements Patient has limited progress towards goal. We will continue current goal. Pt current nutrition is DBCC with Glucerna shakes TID. Last recorded weight is 74.2 kg, up from 64.8 kg on admit. Bowel Motility: +BM reported 4/3 Labs Reviewed: K 3.3, NA 136, Hct 30.5, Hgb 9.3 Meds Noted: Jardiance, Rocephin, Protonix. Skin: No pressure ulcers reported. Additional Notes: Diet order has advanced to a DBCC diet with diet supplements. Oral intake poor, 10% reported at breakfast. Nursing will monitor intake for need for assistance with meals. Discussions regarding hospice. Will continue monitor plan of care for any further nutritional interventions. Monitoring intakes, weights, labs, skin, output, supplement tolerance, plan of care Follow up in 5 days.
--- NOTE | 2024-10-22 13:53 | PCOTNOTE ---
Attempted again this P.M. Patient refused to participate, to tired, weak, I need to sleep for strength .
[2024-10-22] MEDS: ACETAMINOPHEN 325 MG TABLET 650 MG PO (14:19)
--- NOTE | 2024-10-22 14:26 | PCPTNOTE ---
Attempted to see patient for PT, however patient refused. Encouraged patient for participation with PT, patient continued to refuse. Patient reported she will do therapy when her gets here.
[2024-10-22 17:12] LABS: Glucose Point of Care 145 mg/dl (65-105)
[2024-10-22] MEDS: cefTRIAXone 2 GM/NS 100 ML 2 GM/100 ML BAG IVPB (20:36)
[2024-10-23] VITALS (10 sets, daily range): BP systolic 91–151; BP diastolic 48–68; PULSE 64–82; RESP 18; TEMP 36.1–37; O2SAT 99–100
[2024-10-23 04:07] LABS: Glucose Point of Care 127 mg/dl (65-105)
[2024-10-23 05:40] LABS: Basophils Percent Auto 0.7 % (0.2-1.2); Eosinophils Absolute Auto 0.1 K/mm3 (0-0.3); Eosinophils Percent Auto 1.8 % (0-4.4); Hematocrit 31.7 % (37.0-47.0); Hemoglobin 9.3 g/dL (12.0-15.0); Immature Granulocyte Absolute 0.11 K/mm3 (0.00-0.031); Immature Granulocyte Percent A 1.8 % (0-0.5); Lymphocytes Absolute Auto 0.99 K/mm3 (0.9-3.2); Lymphocytes Percent Auto 16.4 % (18.3-44.2); Mean Corpuscular HGB Conc 29.3 g/dl (32-36); Mean Corpuscular Hemoglobin 22.5 pg (26-34); Mean Corpuscular Volume 76.6 fl (80-100); Mean Platelet Volume 9.5 fl (7.4-10.4); Monocytes Absolute Auto 0.6 K/mm3 (0.1-0.6); Monocytes Percent Auto 9.8 % (2.6-8.5); Neutrophils Absolute Auto 4.2 K/mm3 (1.3-6.7); Neutrophils Percent Auto 69.5 % (45.5-73.1); Platelet Count Result 272 k/mm3 (150-375); Red Blood Count 4.14 M/mm3 (4.2-5.4); Red Cell Distribution Width 18.6 % (11.5-14.5)
[2024-10-23] MEDS: metroNIDAZOLE 500 MG TABLET PO ×2 (05:42→13:47)
[2024-10-23] MEDS: ERYTHROMYCIN OPHTH OINTMENT 1 GM TUBE 1 APPLIC EACH EYE ×5 (05:42→20:26)
[2024-10-23 06:07] LABS: Anion Gap 5 mmol/L (4-12); Blood Urea Nitrogen 6 mg/dL (7-17); CRP 4.4 mg/dL (<1.0); Calcium 7.6 mg/dL (8.4-10.2); Carbon Dioxide 21 mmol/L (22-30); Chloride 110 mmol/L (98-107); Estimated CRCL calculation 69 ml/min; Estimated Glomerular Filt Rate > 60; Glucose 88 mg/dL (65-110); Potassium 3.7 mmol/L (3.4-5.0); Sodium 136 mmol/L (137-145)
[2024-10-23 06:28] LABS: Anisocytosis 1+; Burr Cells 1+; Hypochromasia 1+; Platelet Estimate Adequate (Adequate)
[2024-10-23 06:29] LABS: Schistocytes None Seen
[2024-10-23 07:56] LABS: Glucose Point of Care 91 mg/dl (65-105)
[2024-10-23] MEDS: PANTOPRAZOLE 40 MG TABLET PO ×2 (09:07→20:27)
[2024-10-23] MEDS: ATORVASTATIN 10 MG TABLET PO (09:07)
[2024-10-23] MEDS: EMPAGLIFLOZIN 10 MG TABLET BY MOUTH (09:07)
[2024-10-23] MEDS: METOPROLOL SUCCINATE EXT REL 100 MG TABCR 200 MG PO (09:08)
[2024-10-23] MEDS: DOXYCYCLINE HYCLATE 100 MG TABLET PO ×2 (09:08→20:26)
[2024-10-23] MEDS: ENOXAPARIN 40 MG/0.4 ML SYRINGE SUB-Q (09:08)
--- NOTE | 2024-10-23 11:08 | P.PNIM_ITS ---
Progress Note: A&P Assessment and Plan (1) Cutaneous abscess of left foot: Code(s): L02.612 - Cutaneous abscess of left foot Status: Acute Assessment and Plan: - Foot XR: Findings suspicious for extensive forefoot osteomyelitis and septic arthritis involving the second through fourth rays. - General surgery consulted - Discussed with that wound unlikely to heal and will possibly need BKA - Foot wound cultured: Light growth of Staph A, no anaerobic isolates - Blood cultures negative for growth - Change antibiotics to ceftriaxone, doxy, metronidazole - POD 3 Excisional debridement skin subcutaneous and bone left foot performed on 10/19 - Will likely need amputation 10/23 * Plan for home hospice * Continue Augmentin and Doxycycline x6 weeks, treating conservatively. Antibiotic choice discussed with Infectious Disease pharmacist. * Blood culture showing micrococcus species on preliminary read * wound culture showing Staph a, group B Streptococcus, bacteroides pyogenes, peptostreptococcus species on preliminary read (2) Osteomyelitis of left foot: Code(s): M86.9 - Osteomyelitis, unspecified Status: Acute Assessment and Plan: - See plan above - Likely BKA eventually - Obtain ABIs, pending - BKA for most likely on Saturday - Surgery has been consulted - will need to get consent - Wound cultures grew Group B strep and MSSA - ID pharm following - Duplex doppler does so no flow on the right lower limb 10/23 * Will treat conservatively with oral antibiotics Augmentin and doxycycline x6 weeks per family request * Plan for hospice * conference service coordinator working on home hospice (3) Septic arthritis of left foot: Code(s): M00.9 - Pyogenic arthritis, unspecified Status: Acute Assessment and Plan: - Likely attributed to abscess/osteomyelitis - Continue IV Abx - See above - As noted by the labs and vitals signs listed 10/23 * Continue antibiotics as stated above (4) Urinary tract infection: Code(s): N39.0 - Urinary tract infection, site not specified Status: Acute Assessment and Plan: - UA: Turbid, 6-10 RBC, Triple Phos Crystals present, heavy amorphous sediment, heavy urine mucus - Empiric Abx ceftriaxone Flagyl and doxy 4/ * No urine culture obtained * Currently on Augmentin and doxycycline as stated above * Patient denies any symptoms of a urinary tract infection (5) Encephalopathy: Code(s): G93.40 - Encephalopathy, unspecified Status: Acute Assessment and Plan: - Multifactorial, likely chronic but exacerbated by UTI, osteomyelitis - Head CT: No acute intracranial process. - CT Brain Angio: Moderate calcified atheromatous disease is identified within the bilateral intracranial internal carotid arteries, resulting in mild stenosis without occlusion. - Brain MRI ordered - Pending info confirmation regarding [facility] from [facility] 4/4 * Patient is at baseline neuro functioning. She is alert and oriented to self, confused. (6) Multiple wounds: Code(s): T07.XXXA - Unspecified multiple injuries, initial encounter Status: Acute Assessment and Plan: - See Assessment and Plan for left foot abscess, osteomyelitis, septic arthritis - Wound on right hip, underneath right breast/axilla, buttocks - Wound care consulted, continue with antifungal barrier cream - Right foot XR for multiple wounds: Deformities with chronic osteolysis centered at the right third and fourth metatarsophalangeal joints consistent with likely sequela of chronic tonsillitis. No evident acute osteomyelitis or other acute osseous abnormality 4/4 * Continue wound care as directed (7) Thickening of wall of gallbladder: Code(s): K82.8 - Other specified diseases of gallbladder Status: Acute Assessment and Plan: - Chest/Abd/Pelvis CTA: Gallbladder hydrops with wall hyperemia, correlate with biliary labs and symptoms of right upper quadrant pain - Abdomen US: Biliary sludge with gallbladder wall thickening. Negative sonographic Cueva sign - Consult GI, agree likely incidental finding - No abdominal pain on exam, likely incidental finding - No further workup necessary 4/4 * GI seen patient and they think that the gallbladder distension is presence of sludge in is not an indication for any intervention * Continue to monitor (8) Chronic pulmonary embolism: Code(s): I27.82 - Chronic pulmonary embolism Status: Acute Assessment and Plan: - Chest/Abd/Pelvis CTA: Chronic pulmonary embolism in the right interlobar pulmonary artery. - Stable - Echocardiogram: Normal LV dimension, LV systolic normal, EF 65-70%, Grade 1 LV diastolic dysfxn, moderate AV stenosis, no pulm HTN - US Venous doppler LE BI: No lower extremity deep venous thrombosis. 4/4 * Plan is for hospice (9) Esophagitis with gastritis: Code(s): K29.70 - Gastritis, unspecified, without bleeding; K20.90 - Esophagitis, unspecified without bleeding Status: Acute Assessment and Plan: - Start Pantoprazole - Likely will need Upper +/- endoscopies - Consult GI - Stable 10/23 * No change to current treatment plan (10) Conjunctivitis: Code(s): H10.9 - Unspecified conjunctivitis Status: Acute Assessment and Plan: - Conjunctival injection seen in left eye, with purulent drainage - Will start erythromycin ointment 10/23 * Continue erythromycin ointment (11) Adult failure to thrive: Code(s): R62.7 - Adult failure to thrive Status: Acute Assessment and Plan: - Dietary consults - Adult Protective services to follow - Care coordination following - Plan on discharge is SNF placement 10/23 * opting for hospice (12) Lesion of left [place] kidney: Code(s): N28.9 - Disorder of kidney and ureter, unspecified Status: Acute Assessment and Plan: - Chest/Abd/Pelvis CTA: Indeterminate 2.0 cm left upper pole renal lesion, recommend nonemergent, outpatient CT or MRI with and without contrast for further evaluation. - Management to be outpatient 10/23 * Patient is going home hospice (13) Type 2 diabetes mellitus: Code(s): E11.9 - Type 2 diabetes mellitus without complications Status: Acute Assessment and Plan: - hypoglycemia protocol - POC blood glucose ACHS - Initiate SSI - correct regimen ordered - low dose TIDWM and HS - A1C 8.2 - Glucose controlled at 102 10/23 * No change to current treatment plan (14) Vitamin D deficiency: Code(s): E55.9 - Vitamin D deficiency, unspecified Status: Acute Assessment and Plan: - Vitamin D 25 Hydroxy= <12.8 - Plan to replace, Ergocalciferol 50,000 units weekly 10/23 * No change to current treatment plan (15) Electrolyte abnormality: Code(s): E87.8 - Other disorders of electrolyte and fluid balance, not elsewhere classified Status: Acute Assessment and Plan: In ED: Na 134, K 4.2, Ca 9.2 On 10/20: Na 135, K 3.3, Ca 7.9 Will supplement as necessary Monitor daily with CMP 10/23 * No change to current treatment plan Time Spent With Patient Time with patient: 25 - 35 minutes Subjective Date/time seen: 10/23/24 11:08 Interval history: Subjective: is at the bedside. Patient is confused and hard of hearing. states that he would rather go hospice that on to have her foot surgery. Case management working on setting up hospice in the home environment her 's wishes. Review of Systems Review of Systems: Unable to be obtained accurately as she is a poor historian and very hard of hearing. Exam Narrative: General: In no acute distress, well nourished Head: atraumatic, no encephalopathy Eyes: PERRLA, sclera injected ENT: Dry mucous membranes, nasal passages clear, missing multiple teeth, very hard of hearing Neck: supple, no JVD, no adenopathy, trachea midline Cardiac: Normal S1 and S2. Respiratory: Lungs clear to auscultation, no adventitious lung sounds, currently on room air Gastrointestinal: soft, non-distended, non-tender, normoactive bowel sounds. : Zuniga catheter in place draining cloudy rosamaria colored urine Extremities: moves all extremities well, no edema Skin: Bilateral lower extremity with dressing in place, multiple wounds on right hip and underneath breast and axilla, buttocks excoriation Neuro: Alert to self Psych: interactive Objective Data Vital Signs Vital Signs: Vital Signs - 24 hr 10/22/24 12:17 10/22/24 15:37 10/22/24 16:30 Temperature 97.5 F L Pulse Rate 73 72 74 Respiratory Rate 17 Blood Pressure 128/56 L Pulse Oximetry 99 10/22/24 20:00 10/22/24 22:00 10/23/24 00:00 Temperature 97.3 F L Pulse Rate 66 65 65 Respiratory Rate 18 Blood Pressure 143/88 H Pulse Oximetry 100 10/23/24 04:00 10/23/24 06:00 10/23/24 09:08 Temperature 97.0 F L Pulse Rate 65 70 82 Respiratory Rate 18 Blood Pressure 151/68 H Pulse Oximetry 100 Intake/Output Intake/Output: Intake & Output 10/20/24 10/21/24 10/22/24 10/23/24 23:59 23:59 23:59 23:59 Intake Total 2297 1490 580 640 Output Total 700 1200 900 800 Balance 1597 290 -320 -160 Meds/Results Medications: Active Medications Generic Name Dose Route Start Last Admin Trade Name Freq PRN Reason Stop Dose Admin Acetaminophen 650 mg 10/18/24 18:28 10/22/24 14:19 Acetaminophen 325 Mg Tablet PO 650 mg Q4H PRN Administration Mild Pain (1-3) or Fever Atorvastatin Calcium 10 mg 10/19/24 09:00 10/23/24 09:07 Atorvastatin 10 Mg Tablet PO 10 mg DAILY SUSY Administration Dextrose 12.5 gm 10/18/24 18:28 Dextrose 50% 25 Gm/50 Ml Syringe IV PUSH PRN PRN Hypoglycemia Protocol Doxycycline Hyclate 100 mg 10/21/24 21:00 10/23/24 09:08 Doxycycline Hyclate 100 Mg Tablet PO 100 mg Q12HR SUSY Administration Empagliflozin 10 mg 10/19/24 09:00 10/23/24 09:07 Empagliflozin 10 Mg Tablet BY MOUTH 10 mg DAILY SUSY Administration Enoxaparin Sodium 40 mg 10/19/24 09:00 10/23/24 09:08 Enoxaparin 40 Mg/0.4 Ml Syringe SUB-Q 40 mg DAILY SUSY Administration Ergocalciferol 50,000 units 10/19/24 16:25 10/19/24 18:30 Ergocalciferol 50,000 Units Capsule PO Not Given Mo@0900 SUSY Erythromycin 1 applic 10/20/24 17:00 10/23/24 09:10 Erythromycin Ophth Ointment 1 Gm Tube EACH EYE 1 applic Q4HWA SUSY Administration Glucagon 1 mg 10/18/24 18:28 Glucagon For Inj 1 Mg Vial IM PRN PRN Hypoglycemia Protocol Glucose 15 gm 10/18/24 18:28 Glucose Oral Gel 15 Gm Of Glucse In 37.5 Gm Tube PO PRN PRN Hypoglycemia Protocol Dextrose 1,000 mls @ 100 mls/hr 10/18/24 18:28 Dextrose 5% 1,000 Ml IVPB PRN PRN Hypoglycemia Protocol Ceftriaxone Sodium 2 gm in 100 mls @ 200 mls/hr 10/21/24 21:00 10/22/24 21:06 Rocephin 2 Gm/Ns 100 Ml IVPB Infused Q24H SUSY Infusion Insulin Aspart 1 - 3 units 10/19/24 21:00 10/22/24 21:29 Insulin Aspart (*Bkc) 100 Units/Ml SUB-Q Not Given HS [facility] Protocol Insulin Aspart 3 - 6 units 10/19/24 08:00 10/23/24 09:08 Insulin Aspart (*Bkc) 100 Units/Ml SUB-Q Not Given TIDWM [facility] Protocol Metoprolol Succinate 200 mg 10/19/24 09:00 10/23/24 09:08 Metoprolol Succinate Ext Rel 100 Mg Tabcr PO 200 mg DAILY SUSY Administration Metronidazole 500 mg 10/21/24 16:00 10/23/24 05:42 Metronidazole 500 Mg Tablet PO 500 mg Q8HR SUSY Administration Ondansetron HCl 4 mg 10/18/24 18:28 Ondansetron Inj 4 Mg/2 Ml Vial IV PUSH Q4H PRN Nausea Pantoprazole Sodium 40 mg 10/19/24 09:00 10/23/24 09:07 Pantoprazole 40 Mg Tablet PO 40 mg Q12HR SUSY Administration Radiology Results: ITS Impressions Chest X-Ray 10/18/24 14:03 IMPRESSION: No acute cardiopulmonary process. Head CT 10/18/24 14:32 IMPRESSION: No acute intracranial process. Right mastoid opacification, may represent effusion versus exudate. Correlate for clinical findings of mastoiditis. Cervical Spine CT 10/18/24 14:48 IMPRESSION: No acute fracture or traumatic malalignment in the cervical spine. Chest/Abdomen/Pelvis CTA 10/18/24 14:58 IMPRESSION: No CT evidence of acute pulmonary embolus. Chronic pulmonary embolism in the right interlobar pulmonary artery. Moderate esophagitis. Ascending thoracic aortic ectasia, measuring up to 4.2 cm. Mild gastritis. Peripheral, somewhat wedge-shaped splenic hypodensities may represent splenic infarcts. No embolic source is detected. Indeterminate 2.0 cm left upper pole renal lesion, recommend nonemergent, outpatient CT or MRI with and without contrast for further evaluation. Gallbladder hydrops with wall hyperemia, correlate with biliary labs and symptoms of right upper quadrant pain. Cystitis. Possible mild fecal impaction. Abdomen Ultrasound 10/18/24 16:50 IMPRESSION: Biliary sludge with gallbladder wall thickening. Negative sonographic Cueva sign. Venous Doppler Study 10/19/24 09:00 IMPRESSION: 1: No lower extremity deep venous thrombosis. Foot X-Ray 10/19/24 14:02 IMPRESSION: 1. Deformities with chronic osteolysis centered at the right third and fourth metatarsophalangeal joints consistent with likely sequela of chronic tonsillitis. No evident acute osteomyelitis or other acute osseous abnormality. Joints. 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 3. Tiny foreign body at a near the skin surface at the plantar aspect of the base of the second toe. CT Brain Angiography 10/19/24 20:50 IMPRESSION: Moderate calcified atheromatous disease is identified within the bilateral intracranial internal carotid arteries, resulting in mild stenosis without occlusion. Duplex Scan Lower Extremity Artery 10/20/24 17:17 IMPRESSION: 1. No discernible flow on color Doppler at the right posterior tibial and do rsalis pedis arteries. Triphasic waveforms with brisk systolic upstrokes at the remaining arteries in the right lower limb. 2. Triphasic waveforms with brisk systolic upstrokes throughout the arteries of the left lower limb. Labs Labs: Laboratory Results - last 24 hr 10/22/24 10/22/24 10/22/24 12:11 17:07 21:14 WBC RBC Hgb Hct MCV MCH MCHC RDW Plt Count MPV Immature Gran % (Auto) Neut % (Auto) Lymph % (Auto) [place] % (Auto) Eos % (Auto) Baso % (Auto) Lymph # (Auto) [place] # (Auto) Eos # (Auto) Baso # (Auto) Abs Immat Gran (auto) Absolute Neuts (auto) Absolute Nucleated RBC Band Neutrophils % Nucleated RBC % Platelet Estimate Hypochromasia Anisocytosis [place] Cells Schistocytes Sodium Potassium Chloride Carbon Dioxide Anion Gap BUN Creatinine Estim Creat Clear Calc Estimated GFR Glucose POC Capillary Glucose 128 H 145 H 127 H Calcium C-Reactive Protein 10/23/24 10/23/24 05:23 07:46 WBC 6.0 RBC 4.14 L Hgb 9.3 L Hct 31.7 L MCV 76.6 L MCH 22.5 L MCHC 29.3 L RDW 18.6 H Plt Count 272 MPV 9.5 Immature Gran % (Auto) 1.8 H Neut % (Auto) 69.5 Lymph % (Auto) 16.4 L [place] % (Auto) 9.8 H Eos % (Auto) 1.8 Baso % (Auto) 0.7 Lymph # (Auto) 0.99 [place] # (Auto) 0.6 Eos # (Auto) 0.1 Baso # (Auto) 0.0 Abs Immat Gran (auto) 0.11 H Absolute Neuts (auto) 4.2 Absolute Nucleated RBC 0.000 Band Neutrophils % Not Reportable Nucleated RBC % 0.0 Platelet Estimate Adequate Hypochromasia 1+ Anisocytosis 1+ [place] Cells 1+ Schistocytes None seen Sodium 136 L Potassium 3.7 Chloride 110 H Carbon Dioxide 21 L Anion Gap 5 BUN 6 L Creatinine 0.67 L Estim Creat Clear Calc 69 Estimated GFR > 60 Glucose 88 POC Capillary Glucose 91 Calcium 7.6 L C-Reactive Protein 4.4 H Quality VTE Prophylaxis VTE prophylaxis: pharmacologic ordered
--- NOTE | 2024-10-23 11:56 | PCPTNOTE ---
Patient refused treatment this session. Patient did not give reason why, other than stating she'll do therapy later. Gave patient max encouragement and education on the importance of therapy for participation, and spouse present to give encouragement. Patient continued to adamantly refuse.
[2024-10-23 12:34] LABS: Glucose Point of Care 106 mg/dl (65-105)
[2024-10-23] MEDS: ACETAMINOPHEN 325 MG TABLET 650 MG PO (14:38)
--- NOTE | 2024-10-23 15:37 | P.PN_ITS ---
Progress Note: A&P Assessment and Plan (1) Osteomyelitis of left foot: Code(s): M86.9 - Osteomyelitis, unspecified Status: Acute Assessment and Plan: Patient has a nonhealing chronic wound of the left foot with osteomyelitis. This wound is not going to heal. We have made the recommendation to have a left below-knee amputation to treat the osteomyelitis. However the patient and her are adamant that they do not want left BKA. Their plans are to transition home with hospice care. Care coordination is involved in this process. Surgery will sign off. Subjective Date/time seen: 10/23/24 15:37 Interval history: Patient without acute changes. at the bedside. Nurses to get her up out of bed to a chair today. Confirmed with the today that his wish is to take the patient home with hospice care. Patient and are adamant that amputation of the left foot below the knee not be done. Exam Extrem: Other: Left foot wound dressed. Dressing is dry. Objective Data Vital Signs Vital Signs: Vital Signs - 24 hr 10/22/24 16:30 10/22/24 20:00 10/22/24 22:00 Temperature 36.3 C L Pulse Rate 74 66 65 Respiratory Rate 18 Blood Pressure 143/88 H Pulse Oximetry 100 Oxygen Delivery 10/23/24 00:00 10/23/24 04:00 10/23/24 06:00 Temperature 36.1 C L Pulse Rate 65 65 70 Respiratory Rate 18 Blood Pressure 151/68 H Pulse Oximetry 100 Oxygen Delivery 10/23/24 08:30 10/23/24 09:08 10/23/24 14:00 Temperature 37.0 C Pulse Rate 82 64 Respiratory Rate 18 Blood Pressure 91/53 L Pulse Oximetry 99 Oxygen Delivery Room Air Intake/Output Intake/Output: Intake & Output 10/20/24 10/21/24 10/22/24 10/23/24 23:59 23:59 23:59 23:59 Intake Total 2297 1490 580 880 Output Total 700 1200 900 800 Balance 1597 290 -320 80 Meds/Results Medications: Active Medications Generic Name Dose Route Start Last Admin Trade Name Freq PRN Reason Stop Dose Admin Acetaminophen 650 mg 10/18/24 18:28 10/23/24 14:38 Acetaminophen 325 Mg Tablet PO 650 mg Q4H PRN Administration Mild Pain (1-3) or Fever Atorvastatin Calcium 10 mg 10/19/24 09:00 10/23/24 09:07 Atorvastatin 10 Mg Tablet PO 10 mg DAILY SUSY Administration Dextrose 12.5 gm 10/18/24 18:28 Dextrose 50% 25 Gm/50 Ml Syringe IV PUSH PRN PRN Hypoglycemia Protocol Doxycycline Hyclate 100 mg 10/21/24 21:00 10/23/24 09:08 Doxycycline Hyclate 100 Mg Tablet PO 100 mg Q12HR SUSY Administration Empagliflozin 10 mg 10/19/24 09:00 10/23/24 09:07 Empagliflozin 10 Mg Tablet BY MOUTH 10 mg DAILY SUSY Administration Enoxaparin Sodium 40 mg 10/19/24 09:00 10/23/24 09:08 Enoxaparin 40 Mg/0.4 Ml Syringe SUB-Q 40 mg DAILY SUSY Administration Ergocalciferol 50,000 units 10/19/24 16:25 10/19/24 18:30 Ergocalciferol 50,000 Units Capsule PO Not Given Mo@0900 SUSY Erythromycin 1 applic 10/20/24 17:00 10/23/24 13:49 Erythromycin Ophth Ointment 1 Gm Tube EACH EYE 1 applic Q4HWA SUSY Administration Glucagon 1 mg 10/18/24 18:28 Glucagon For Inj 1 Mg Vial IM PRN PRN Hypoglycemia Protocol Glucose 15 gm 10/18/24 18:28 Glucose Oral Gel 15 Gm Of Glucse In 37.5 Gm Tube PO PRN PRN Hypoglycemia Protocol Dextrose 1,000 mls @ 100 mls/hr 10/18/24 18:28 Dextrose 5% 1,000 Ml IVPB PRN PRN Hypoglycemia Protocol Ceftriaxone Sodium 2 gm in 100 mls @ 200 mls/hr 10/21/24 21:00 10/22/24 21:06 Rocephin 2 Gm/Ns 100 Ml IVPB Infused Q24H SUSY Infusion Insulin Aspart 1 - 3 units 10/19/24 21:00 10/22/24 21:29 Insulin Aspart (*Bkc) 100 Units/Ml SUB-Q Not Given HS [facility] Protocol Insulin Aspart 3 - 6 units 10/19/24 08:00 10/23/24 13:09 Insulin Aspart (*Bkc) 100 Units/Ml SUB-Q Not Given TIDWM [facility] Protocol Metoprolol Succinate 200 mg 10/19/24 09:00 10/23/24 09:08 Metoprolol Succinate Ext Rel 100 Mg Tabcr PO 200 mg DAILY SUSY Administration Metronidazole 500 mg 10/21/24 16:00 10/23/24 13:47 Metronidazole 500 Mg Tablet PO 500 mg Q8HR SUSY Administration Ondansetron HCl 4 mg 10/18/24 18:28 Ondansetron Inj 4 Mg/2 Ml Vial IV PUSH Q4H PRN Nausea Pantoprazole Sodium 40 mg 10/19/24 09:00 10/23/24 09:07 Pantoprazole 40 Mg Tablet PO 40 mg Q12HR SUSY Administration Radiology Results: ITS Impressions Chest X-Ray 10/18/24 14:03 IMPRESSION: No acute cardiopulmonary process. Head CT 10/18/24 14:32 IMPRESSION: No acute intracranial process. Right mastoid opacification, may represent effusion versus exudate. Correlate for clinical findings of mastoiditis. Cervical Spine CT 10/18/24 14:48 IMPRESSION: No acute fracture or traumatic malalignment in the cervical spine. Chest/Abdomen/Pelvis CTA 10/18/24 14:58 IMPRESSION: No CT evidence of acute pulmonary embolus. Chronic pulmonary embolism in the right interlobar pulmonary artery. Moderate esophagitis. Ascending thoracic aortic ectasia, measuring up to 4.2 cm. Mild gastritis. Peripheral, somewhat wedge-shaped splenic hypodensities may represent splenic infarcts. No embolic source is detected. Indeterminate 2.0 cm left upper pole renal lesion, recommend nonemergent, outp atient CT or MRI with and without contrast for further evaluation. Gallbladder hydrops with wall hyperemia, correlate with biliary labs and symptoms of right upper quadrant pain. Cystitis. Possible mild fecal impaction. Abdomen Ultrasound 10/18/24 16:50 IMPRESSION: Biliary sludge with gallbladder wall thickening. Negative sonographic Cueva sign. Venous Doppler Study 10/19/24 09:00 IMPRESSION: 1: No lower extremity deep venous thrombosis. Foot X-Ray 10/19/24 14:02 IMPRESSION: 1. Deformities with chronic osteolysis centered at the right third and fourth metatarsophalangeal joints consistent with likely sequela of chronic tonsillitis. No evident acute osteomyelitis or other acute osseous abnormality. Joints. 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 3. Tiny foreign body at a near the skin surface at the plantar aspect of the ba se of the second toe. CT Brain Angiography 10/19/24 20:50 IMPRESSION: Moderate calcified atheromatous disease is identified within the bilateral intracranial internal carotid arteries, resulting in mild stenosis without occlusion. Duplex Scan Lower Extremity Artery 10/20/24 17:17 IMPRESSION: 1. No discernible flow on color Doppler at the right posterior tibial and dorsalis pedis arteries. Triphasic waveforms with brisk systolic upstrokes at the remaining arteries in the right lower limb. 2. Triphasic waveforms with brisk systolic upstrokes throughout the arteries of the left lower limb. Labs Labs: Laboratory Results - last 24 hr 10/22/24 10/22/24 10/23/24 17:07 21:14 05:23 WBC 6.0 RBC 4.14 L Hgb 9.3 L Hct 31.7 L MCV 76.6 L MCH 22.5 L MCHC 29.3 L RDW 18.6 H Plt Count 272 MPV 9.5 Immature Gran % (Auto) 1.8 H Neut % (Auto) 69.5 Lymph % (Auto) 16.4 L [place] % (Auto) 9.8 H Eos % (Auto) 1.8 Baso % (Auto) 0.7 Lymph # (Auto) 0.99 [place] # (Auto) 0.6 Eos # (Auto) 0.1 Baso # (Auto) 0.0 Abs Immat Gran (auto) 0.11 H Absolute Neuts (auto) 4.2 Absolute Nucleated RBC 0.000 Band Neutrophils % Not Reportable Nucleated RBC % 0.0 Platelet Estimate Adequate Hypochromasia 1+ Anisocytosis 1+ [place] Cells 1+ Schistocytes None seen Sodium 136 L Potassium 3.7 Chloride 110 H Carbon Dioxide 21 L Anion Gap 5 BUN 6 L Creatinine 0.67 L Estim Creat Clear Calc 69 Estimated GFR > 60 Glucose 88 POC Capillary Glucose 145 H 127 H Calcium 7.6 L C-Reactive Protein 4.4 H 10/23/24 10/23/24 07:46 12:23 WBC RBC Hgb Hct MCV MCH MCHC RDW Plt Count MPV Immature Gran % (Auto) Neut % (Auto) Lymph % (Auto) [place] % (Auto) Eos % (Auto) Baso % (Auto) Lymph # (Auto) [place] # (Auto) Eos # (Auto) Baso # (Auto) Abs Immat Gran (auto) Absolute Neuts (auto) Absolute Nucleated RBC Band Neutrophils % Nucleated RBC % Platelet Estimate Hypochromasia Anisocytosis [place] Cells Schistocytes Sodium Potassium Chloride Carbon Dioxide Anion Gap BUN Creatinine Estim Creat Clear Calc Estimated GFR Glucose POC Capillary Glucose 91 106 H Calcium C-Reactive Protein
[2024-10-23 16:46] LABS: Glucose Point of Care 141 mg/dl (65-105)
[2024-10-23] MEDS: AMOXICILLIN/CLAVULANATE K 875-125 MG TAB 1 TABLET PO (20:27)
[2024-10-24] VITALS (11 sets, daily range): BP systolic 108–135; BP diastolic 54–71; PULSE 65–74; RESP 18; TEMP 36.1–37; O2SAT 100
[2024-10-24 06:02] LABS: Glucose Point of Care 149 mg/dl (65-105)
[2024-10-24 07:54] LABS: Glucose Point of Care 102 mg/dl (65-105)
--- NOTE | 2024-10-24 11:07 | P.PNIM_ITS ---
Progress Note: A&P Assessment and Plan (1) Cutaneous abscess of left foot: Code(s): L02.612 - Cutaneous abscess of left foot Status: Acute Assessment and Plan: - Foot XR: Findings suspicious for extensive forefoot osteomyelitis and septic arthritis involving the second through fourth rays. - General surgery consulted - Discussed with that wound unlikely to heal and will possibly need BKA - Foot wound cultured: Light growth of Staph A, no anaerobic isolates - Blood cultures negative for growth - Change antibiotics to ceftriaxone, doxy, metronidazole - POD 3 Excisional debridement skin subcutaneous and bone left foot performed on 10/19 - Will likely need amputation 10/23 * Plan for home hospice * Continue Augmentin and Doxycycline x6 weeks, treating conservatively. Antibiotic choice discussed with Infectious Disease pharmacist. * Blood culture showing micrococcus species on preliminary read * wound culture showing Staph a, group B Streptococcus, bacteroides pyogenes, peptostreptococcus species on preliminary read 10/24 * laboratory coordinator to call [facility] and expressed he would like to proceed with signing paperwork * Blood culture showing micrococcus species on preliminary read * Wound cultures are unchanged * Continue oral antibiotics, Augmentin and Doxycycline (2) Osteomyelitis of left foot: Code(s): M86.9 - Osteomyelitis, unspecified Status: Acute Assessment and Plan: - See plan above - Likely BKA eventually - Obtain ABIs, pending - BKA for most likely on Saturday - Surgery has been consulted - will need to get consent - Wound cultures grew Group B strep and MSSA - ID pharm following - Duplex doppler does so no flow on the right lower limb 10/23 * Will treat conservatively with oral antibiotics Augmentin and doxycycline x6 weeks per family request * Plan for hospice * laboratory coordinator working on home hospice 10/24 * no change (3) Septic arthritis of left foot: Code(s): M00.9 - Pyogenic arthritis, unspecified Status: Acute Assessment and Plan: - Likely attributed to abscess/osteomyelitis - Continue IV Abx - See above - As noted by the labs and vitals signs listed 10/23 * Continue antibiotics as stated above (4) Urinary tract infection: Code(s): N39.0 - Urinary tract infection, site not specified Status: Acute Assessment and Plan: - UA: Turbid, 6-10 RBC, Triple Phos Crystals present, heavy amorphous sediment, heavy urine mucus - Empiric Abx ceftriaxone Flagyl and doxy / * No urine culture obtained * Currently on Augmentin and doxycycline as stated above * Patient denies any symptoms of a urinary tract infection 10/24 * no change (5) Encephalopathy: Code(s): G93.40 - Encephalopathy, unspecified Status: Acute Assessment and Plan: - Multifactorial, likely chronic but exacerbated by UTI, osteomyelitis - Head CT: No acute intracranial process. - CT Brain Angio: Moderate calcified atheromatous disease is identified within the bilateral intracranial internal carotid arteries, resulting in mild stenosis without occlusion. - Brain MRI ordered - Pending info confirmation regarding [facility] from [facility] 4/4 * Patient is at baseline neuro functioning. She is alert and oriented to self, confused. (6) Multiple wounds: Code(s): T07.XXXA - Unspecified multiple injuries, initial encounter Status: Acute Assessment and Plan: - See Assessment and Plan for left foot abscess, osteomyelitis, septic arthritis - Wound on right hip, underneath right breast/axilla, buttocks - Wound care consulted, continue with antifungal barrier cream - Right foot XR for multiple wounds: Deformities with chronic osteolysis centered at the right third and fourth metatarsophalangeal joints consistent with likely sequela of chronic tonsillitis. No evident acute osteomyelitis or other acute osseous abnormality 4/ * Continue wound care as directed (7) Thickening of wall of gallbladder: Code(s): K82.8 - Other specified diseases of gallbladder Status: Acute Assessment and Plan: - Chest/Abd/Pelvis CTA: Gallbladder hydrops with wall hyperemia, correlate with biliary labs and symptoms of right upper quadrant pain - Abdomen US: Biliary sludge with gallbladder wall thickening. Negative sonographic Cueva sign - Consult GI, agree likely incidental finding - No abdominal pain on exam, likely incidental finding - No further workup necessary 4/4 * GI seen patient and they think that the gallbladder distension is presence of sludge in is not an indication for any intervention * Continue to monitor (8) Chronic pulmonary embolism: Code(s): I27.82 - Chronic pulmonary embolism Status: Acute Assessment and Plan: - Chest/Abd/Pelvis CTA: Chronic pulmonary embolism in the right interlobar pulmonary artery. - Stable - Echocardiogram: Normal LV dimension, LV systolic normal, EF 65-70%, Grade 1 LV diastolic dysfxn, moderate AV stenosis, no pulm HTN - US Venous doppler LE BI: No lower extremity deep venous thrombosis. 4/4 * Plan is for hospice (9) Esophagitis with gastritis: Code(s): K29.70 - Gastritis, unspecified, without bleeding; K20.90 - Esophagitis, unspecified without bleeding Status: Acute Assessment and Plan: - Start Pantoprazole - Likely will need Upper +/- endoscopies - Consult GI - Stable 10/23 * No change to current treatment plan (10) Conjunctivitis: Code(s): H10.9 - Unspecified conjunctivitis Status: Acute Assessment and Plan: - Conjunctival injection seen in left eye, with purulent drainage - Will start erythromycin ointment 10/23 * Continue erythromycin ointment (11) Adult failure to thrive: Code(s): R62.7 - Adult failure to thrive Status: Acute Assessment and Plan: - Dietary consults - Adult Protective services to follow - Care coordination following - Plan on discharge is SNF placement 10/23 * opting for hospice (12) Lesion of left [place] kidney: Code(s): N28.9 - Disorder of kidney and ureter, unspecified Status: Acute Assessment and Plan: - Chest/Abd/Pelvis CTA: Indeterminate 2.0 cm left upper pole renal lesion, recommend nonemergent, outpatient CT or MRI with and without contrast for further evaluation. - Management to be outpatient 10/23 * Patient is going home hospice (13) Type 2 diabetes mellitus: Code(s): E11.9 - Type 2 diabetes mellitus without complications Status: Acute Assessment and Plan: - hypoglycemia protocol - POC blood glucose ACHS - Initiate SSI - correct regimen ordered - low dose TIDWM and HS - A1C 8.2 - Glucose controlled at 102 10/23 * No change to current treatment plan (14) Vitamin D deficiency: Code(s): E55.9 - Vitamin D deficiency, unspecified Status: Acute Assessment and Plan: - Vitamin D 25 Hydroxy= <12.8 - Plan to replace, Ergocalciferol 50,000 units weekly 10/23 * No change to current treatment plan (15) Electrolyte abnormality: Code(s): E87.8 - Other disorders of electrolyte and fluid balance, not elsewhere classified Status: Acute Assessment and Plan: In ED: Na 134, K 4.2, Ca 9.2 On 10/20: Na 135, K 3.3, Ca 7.9 Will supplement as necessary Monitor daily with CMP 10/23 * No change to current treatment plan Time Spent With Patient Time with patient: 25 - 35 minutes Subjective Date/time seen: 10/24/24 11:07 Interval history: Subjective: No new complaints today. ready to sign hospice paperwork with [facility] today. Labs reviewed. Review of Systems Review of Systems: Unable to be obtained accurately as she is a poor historian and very hard of hearing. Exam Narrative: General: In no acute distress, well nourished ENT: Dry mucous membranes, nasal passages clear, missing multiple teeth, very hard of hearing, left eye red and injected Neck: supple, no JVD, no adenopathy, trachea midline Cardiac: Normal S1 and S2. Respiratory: Lungs clear to auscultation, no adventitious lung sounds, currently on room air Gastrointestinal: soft, non-distended, non-tender, normoactive bowel sounds. : Zuniga catheter in place draining cloudy rosamaria colored urine Skin: Bilateral lower extremity with dressing in place, multiple wounds on right hip and underneath breast and axilla, buttocks excoriation Neuro: Alert to self Psych: interactive Objective Data Vital Signs Vital Signs: Vital Signs - 24 hr 10/23/24 12:00 10/23/24 14:00 10/23/24 16:00 Temperature 98.6 F Pulse Rate 72 64 64 Respiratory Rate 18 Blood Pressure 91/53 L Pulse Oximetry 99 10/23/24 20:00 10/23/24 21:45 10/24/24 00:00 Temperature 97.4 F L Pulse Rate 71 67 66 Respiratory Rate 18 Blood Pressure 122/48 L Pulse Oximetry 100 10/24/24 04:00 10/24/24 06:00 Temperature 97.0 F L Pulse Rate 65 67 Respiratory Rate 18 Blood Pressure 122/66 Pulse Oximetry 100 Intake/Output Intake/Output: Intake & Output 10/21/24 10/22/24 10/23/24 10/24/24 23:59 23:59 23:59 23:59 Intake Total 6288 200 9237 400 Output Total 1014 387 1911 1200 Balance 290 -320 -170 -800 Meds/Results Medications: Active Medications Generic Name Dose Route Start Last Admin Trade Name Freq PRN Reason Stop Dose Admin Acetaminophen 650 mg 10/18/24 18:28 10/23/24 14:38 Acetaminophen 325 Mg Tablet PO 650 mg Q4H PRN Administration Mild Pain (1-3) or Fever Amoxicillin/Clavulanate Potassium 1 tablet 10/23/24 21:00 10/23/24 20:27 Amoxicillin/Clavulanate K 875-125 Mg Tab PO 1 tablet Q12HR SUSY Administration Atorvastatin Calcium 10 mg 10/19/24 09:00 10/23/24 09:07 Atorvastatin 10 Mg Tablet PO 10 mg DAILY SUSY Administration Dextrose 12.5 gm 10/18/24 18:28 Dextrose 50% 25 Gm/50 Ml Syringe IV PUSH PRN PRN Hypoglycemia Protocol Doxycycline Hyclate 100 mg 10/21/24 21:00 10/23/24 20:26 Doxycycline Hyclate 100 Mg Tablet PO 100 mg Q12HR SUSY Administration Empagliflozin 10 mg 10/19/24 09:00 10/23/24 09:07 Empagliflozin 10 Mg Tablet BY MOUTH 10 mg DAILY SUSY Administration Enoxaparin Sodium 40 mg 10/19/24 09:00 10/23/24 09:08 Enoxaparin 40 Mg/0.4 Ml Syringe SUB-Q 40 mg DAILY SUSY Administration Ergocalciferol 50,000 units 10/19/24 16:25 10/19/24 18:30 Ergocalciferol 50,000 Units Capsule PO Not Given Mo@0900 [facility] Erythromycin 1 applic 10/20/24 17:00 10/24/24 06:06 Erythromycin Ophth Ointment 1 Gm Tube EACH EYE Not Given Q4HWA [facility] Glucagon 1 mg 10/18/24 18:28 Glucagon For Inj 1 Mg Vial IM PRN PRN Hypoglycemia Protocol Glucose 15 gm 10/18/24 18:28 Glucose Oral Gel 15 Gm Of Glucse In 37.5 Gm Tube PO PRN PRN Hypoglycemia Protocol Dextrose 1,000 mls @ 100 mls/hr 10/18/24 18:28 Dextrose 5% 1,000 Ml IVPB PRN PRN Hypoglycemia Protocol Insulin Aspart 1 - 3 units 10/19/24 21:00 10/23/24 20:39 Insulin Aspart (*Bkc) 100 Units/Ml SUB-Q Not Given HS [facility] Protocol Insulin Aspart 3 - 6 units 10/19/24 08:00 10/24/24 07:49 Insulin Aspart (*Bkc) 100 Units/Ml SUB-Q Not Given TIDWM [facility] Protocol Metoprolol Succinate 200 mg 10/19/24 09:00 10/23/24 09:08 Metoprolol Succinate Ext Rel 100 Mg Tabcr PO 200 mg DAILY SUSY Administration Ondansetron HCl 4 mg 10/18/24 18:28 Ondansetron Inj 4 Mg/2 Ml Vial IV PUSH Q4H PRN Nausea Pantoprazole Sodium 40 mg 10/19/24 09:00 10/23/24 20:27 Pantoprazole 40 Mg Tablet PO 40 mg Q12HR SUSY Administration Radiology Results: ITS Impressions Chest X-Ray 10/18/24 14:03 IMPRESSION: No acute cardiopulmonary process. Head CT 10/18/24 14:32 IMPRESSION: No acute intracranial process. Right mastoid opacification, may represent effusion versus exudate. Correlate for clinical findings of mastoiditis. Cervical Spine CT 10/18/24 14:48 IMPRESSION: No acute fracture or traumatic malalignment in the cervical spine. Chest/Abdomen/Pelvis CTA 10/18/24 14:58 IMPRESSION: No CT evidence of acute pulmonary embolus. Chronic pulmonary embolism in the right interlobar pulmonary artery. Moderate esophagitis. Ascending thoracic aortic ectasia, measuring up to 4.2 cm. Mild gastritis. Peripheral, somewhat wedge-shaped splenic hypodensities may represent splenic infarcts. No embolic source is detected. Indeterminate 2.0 cm left upper pole renal lesion, recommend nonemergent, outpatient CT or MRI with and without contrast for further evaluation. Gallbladder hydrops with wall hyperemia, correlate with biliary labs and symptoms of right upper quadrant pain. Cystitis. Possible mild fecal impaction. Abdomen Ultrasound 10/18/24 16:50 IMPRESSION: Biliary sludge with gallbladder wall thickening. Negative sonographic Cueva sign. Venous Doppler Study 10/19/24 09:00 IMPRESSION: 1: No lower extremity deep venous thrombosis. Foot X-Ray 10/19/24 14:02 IMPRESSION: 1. Deformities with chronic osteolysis centered at the right third and fourth metatarsophalangeal joints consistent with likely sequela of chronic tonsillitis. No evident acute osteomyelitis or other acute osseous abnormality. Joints. 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 3. Tiny foreign body at a near the skin surface at the plantar aspect of the base of the second toe. CT Brain Angiography 10/19/24 20:50 IMPRESSION: Moderate calcified atheromatous disease is identified within the bilateral intracranial internal carotid arteries, resulting in mild stenosis without occlusion. Duplex Scan Lower Extremity Artery 04/01/25 17:17 IMPRESSION: 1. No discernible flow on color Doppler at the right posterior tibial and dorsalis pedis arteries. Triphasic waveforms with brisk systolic upstrokes at the remaining arteries in the right lower limb. 2. Triphasic waveforms with brisk systolic upstrokes throughout the arteries of the left lower limb. Labs Labs: Laboratory Results - last 24 hr 10/23/24 10/23/24 10/23/24 12:23 16:43 20:39 POC Capillary Glucose 106 H 141 H 149 H 10/24/24 07:49 POC Capillary Glucose 102 Quality VTE Prophylaxis VTE prophylaxis: pharmacologic ordered
[2024-10-24] MEDS: METOPROLOL SUCCINATE EXT REL 100 MG TABCR 200 MG PO (11:22)
[2024-10-24] MEDS: ENOXAPARIN 40 MG/0.4 ML SYRINGE SUB-Q (11:22)
[2024-10-24] MEDS: EMPAGLIFLOZIN 10 MG TABLET BY MOUTH (11:22)
[2024-10-24] MEDS: DOXYCYCLINE HYCLATE 100 MG TABLET PO ×2 (11:22→20:23)
[2024-10-24] MEDS: ERYTHROMYCIN OPHTH OINTMENT 1 GM TUBE 1 APPLIC EACH EYE ×3 (11:23→20:24)
[2024-10-24] MEDS: PANTOPRAZOLE 40 MG TABLET PO ×2 (11:23→20:24)
[2024-10-24] MEDS: ATORVASTATIN 10 MG TABLET PO (11:23)
[2024-10-24] MEDS: AMOXICILLIN/CLAVULANATE K 875-125 MG TAB 1 TABLET PO ×2 (11:23→20:24)
[2024-10-24 12:04] LABS: Glucose Point of Care 96 mg/dl (65-105)
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
[2024-10-24 17:14] LABS: Glucose Point of Care 119 mg/dl (65-105)
[2024-10-25] VITALS (10 sets, daily range): BP systolic 104–133; BP diastolic 55–80; PULSE 64–75; RESP 18; TEMP 36.2–36.4; O2SAT 96–100
[2024-10-25 07:01] LABS: Glucose Point of Care 130 mg/dl (65-105)
[2024-10-25] MEDS: PANTOPRAZOLE 40 MG TABLET PO ×2 (09:09→22:17)
[2024-10-25] MEDS: DOXYCYCLINE HYCLATE 100 MG TABLET PO ×2 (09:09→22:17)
[2024-10-25] MEDS: EMPAGLIFLOZIN 10 MG TABLET BY MOUTH (09:09)
[2024-10-25] MEDS: ATORVASTATIN 10 MG TABLET PO (09:09)
[2024-10-25] MEDS: METOPROLOL SUCCINATE EXT REL 100 MG TABCR 200 MG PO (09:09)
[2024-10-25] MEDS: AMOXICILLIN/CLAVULANATE K 875-125 MG TAB 1 TABLET PO ×2 (09:09→22:17)
[2024-10-25] MEDS: ERYTHROMYCIN OPHTH OINTMENT 1 GM TUBE 1 APPLIC EACH EYE ×4 (09:10→22:18)
[2024-10-25] MEDS: ENOXAPARIN 40 MG/0.4 ML SYRINGE SUB-Q (09:10)
[2024-10-25 09:41] LABS: Glucose Point of Care 108 mg/dl (65-105)
--- NOTE | 2024-10-25 11:30 | P.PNIM_ITS ---
Progress Note: A&P Assessment and Plan (1) Cutaneous abscess of left foot: Code(s): L02.612 - Cutaneous abscess of left foot Status: Acute Assessment and Plan: - Foot XR: Findings suspicious for extensive forefoot osteomyelitis and septic arthritis involving the second through fourth rays. - General surgery consulted - Discussed with that wound unlikely to heal and will possibly need BKA - Foot wound cultured: Light growth of Staph A, no anaerobic isolates - Blood cultures negative for growth - Change antibiotics to ceftriaxone, doxy, metronidazole - POD 3 Excisional debridement skin subcutaneous and bone left foot performed on 10/19 - Will likely need amputation 10/23 * Plan for home hospice * Continue Augmentin and Doxycycline x6 weeks, treating conservatively. Antibiotic choice discussed with Infectious Disease pharmacist. * Blood culture showing micrococcus species on preliminary read * wound culture showing Staph a, group B Streptococcus, bacteroides pyogenes, peptostreptococcus species on preliminary read 10/24 * disability services coordinator to call [facility] and expressed he would like to proceed with signing paperwork * Blood culture showing micrococcus species on preliminary read * Wound cultures are unchanged * Continue oral antibiotics, Augmentin and Doxycycline 10/25 * Continue oral antibiotics * signed hospice paperwork yesterday * She is now a DNR/DNI (2) Osteomyelitis of left foot: Code(s): M86.9 - Osteomyelitis, unspecified Status: Acute Assessment and Plan: - See plan above - Likely BKA eventually - Obtain ABIs, pending - BKA for most likely on Saturday - Surgery has been consulted - will need to get consent - Wound cultures grew Group B strep and MSSA - ID pharm following - Duplex doppler does so no flow on the right lower limb 10/23 * Will treat conservatively with oral antibiotics Augmentin and doxycycline x6 weeks per family request * Plan for hospice * disability services coordinator working on home hospice 10/24 * no change (3) Septic arthritis of left foot: Code(s): M00.9 - Pyogenic arthritis, unspecified Status: Acute Assessment and Plan: - Likely attributed to abscess/osteomyelitis - Continue IV Abx - See above - As noted by the labs and vitals signs listed 10/23 * Continue antibiotics as stated above (4) Urinary tract infection: Code(s): N39.0 - Urinary tract infection, site not specified Status: Acute Assessment and Plan: - UA: Turbid, 6-10 RBC, Triple Phos Crystals present, heavy amorphous sediment, heavy urine mucus - Empiric Abx ceftriaxone Flagyl and doxy 4/ * No urine culture obtained * Currently on Augmentin and doxycycline as stated above * Patient denies any symptoms of a urinary tract infection 10/24 * no change (5) Encephalopathy: Code(s): G93.40 - Encephalopathy, unspecified Status: Acute Assessment and Plan: - Multifactorial, likely chronic but exacerbated by UTI, osteomyelitis - Head CT: No acute intracranial process. - CT Brain Angio: Moderate calcified atheromatous disease is identified within the bilateral intracranial internal carotid arteries, resulting in mild stenosis without occlusion. - Brain MRI ordered - Pending info confirmation regarding [facility] from [facility] 4/ * Patient is at baseline neuro functioning. She is alert and oriented to self, confused. (6) Multiple wounds: Code(s): T07.XXXA - Unspecified multiple injuries, initial encounter Status: Acute Assessment and Plan: - See Assessment and Plan for left foot abscess, osteomyelitis, septic arthritis - Wound on right hip, underneath right breast/axilla, buttocks - Wound care consulted, continue with antifungal barrier cream - Right foot XR for multiple wounds: Deformities with chronic osteolysis centered at the right third and fourth metatarsophalangeal joints consistent with likely sequela of chronic tonsillitis. No evident acute osteomyelitis or other acute osseous abnormality 4/ * Continue wound care as directed (7) Thickening of wall of gallbladder: Code(s): K82.8 - Other specified diseases of gallbladder Status: Acute Assessment and Plan: - Chest/Abd/Pelvis CTA: Gallbladder hydrops with wall hyperemia, correlate with biliary labs and symptoms of right upper quadrant pain - Abdomen US: Biliary sludge with gallbladder wall thickening. Negative sonogr aphic Cueva sign - Consult GI, agree likely incidental finding - No abdominal pain on exam, likely incidental finding - No further workup necessary 4/4 * GI seen patient and they think that the gallbladder distension is presence of sludge in is not an indication for any intervention * Continue to monitor (8) Chronic pulmonary embolism: Code(s): I27.82 - Chronic pulmonary embolism Status: Acute Assessment and Plan: - Chest/Abd/Pelvis CTA: Chronic pulmonary embolism in the right interlobar pulmonary artery. - Stable - Echocardiogram: Normal LV dimension, LV systolic normal, EF 65-70%, Grade 1 LV diastolic dysfxn, moderate AV stenosis, no pulm HTN - US Venous doppler LE BI: No lower extremity deep venous thrombosis. 10/23 * Plan is for hospice (9) Esophagitis with gastritis: Code(s): K29.70 - Gastritis, unspecified, without bleeding; K20.90 - Esophagitis, unspecified without bleeding Status: Acute Assessment and Plan: - Start Pantoprazole - Likely will need Upper +/- endoscopies - Consult GI - Stable 10/23 * No change to current treatment plan (10) Conjunctivitis: Code(s): H10.9 - Unspecified conjunctivitis Status: Acute Assessment and Plan: - Conjunctival injection seen in left eye, with purulent drainage - Will start erythromycin ointment 10/23 * Continue erythromycin ointment (11) Adult failure to thrive: Code(s): R62.7 - Adult failure to thrive Status: Acute Assessment and Plan: - Dietary consults - Adult Protective services to follow - Care coordination following - Plan on discharge is SNF placement 10/23 * opting for hospice (12) Lesion of left [place] kidney: Code(s): N28.9 - Disorder of kidney and ureter, unspecified Status: Acute Assessment and Plan: - Chest/Abd/Pelvis CTA: Indeterminate 2.0 cm left upper pole renal lesion, recommend nonemergent, outpatient CT or MRI with and without contrast for further evaluation. - Management to be outpatient 10/23 * Patient is going home hospice (13) Type 2 diabetes mellitus: Code(s): E11.9 - Type 2 diabetes mellitus without complications Status: Acute Assessment and Plan: - hypoglycemia protocol - POC blood glucose ACHS - Initiate SSI - correct regimen ordered - low dose TIDWM and HS - A1C 8.2 - Glucose controlled at 102 10/23 * No change to current treatment plan (14) Vitamin D deficiency: Code(s): E55.9 - Vitamin D deficiency, unspecified Status: Acute Assessment and Plan: - Vitamin D 25 Hydroxy= <12.8 - Plan to replace, Ergocalciferol 50,000 units weekly 10/23 * No change to current treatment plan (15) Electrolyte abnormality: Code(s): E87.8 - Other disorders of electrolyte and fluid balance, not elsewhere classified Status: Acute Assessment and Plan: In ED: Na 134, K 4.2, Ca 9.2 On 10/20: Na 135, K 3.3, Ca 7.9 Will supplement as necessary Monitor daily with CMP 10/23 * No change to current treatment plan Time Spent With Patient Time with patient: 25 - 35 minutes Subjective Date/time seen: 10/25/24 11:30 Interval history: Subjective: Spoke with about code status. He wishes to make her a DNR/DNI today. We will still continue to treat her infection. He signed with [facility] hospice yesterday. Planning on taking her home and he will pursuit [facility] to be home with her. Review of Systems Review of Systems: Unable to be obtained accurately as she is a poor historian and very hard of hearing. Exam Narrative: General: In no acute distress, well nourished ENT: Dry mucous membranes, nasal passages clear, missing multiple teeth, very hard of hearing, left eye red and injected Neck: supple, no JVD, no adenopathy, trachea midline Cardiac: Normal S1 and S2. Respiratory: Lungs clear to auscultation, no adventitious lung sounds, currently on room air Gastrointestinal: soft, non-distended, non-tender, normoactive bowel sounds. : Zuniga catheter in place draining cloudy rosamaria colored urine Skin: Bilateral lower extremity with dressing in place, multiple wounds on right hip and underneath breast and axilla, buttocks excoriation Neuro: Alert to self Psych: interactive Objective Data Vital Signs Vital Signs: Vital Signs - 24 hr 10/24/24 12:00 10/24/24 14:00 10/24/24 16:00 Temperature 98.6 F Pulse Rate 70 74 69 Respiratory Rate 18 Blood Pressure 108/54 L Pulse Oximetry 100 Oxygen Delivery Fraction of Inspired Oxygen 10/24/24 20:00 10/24/24 20:00 10/24/24 21:32 Temperature Pulse Rate 73 69 Respiratory Rate Blood Pressure Pulse Oximetry 100 Oxygen Delivery Room Air Room Air Fraction of Inspired Oxygen 21 10/24/24 22:00 10/25/24 00:00 10/25/24 04:00 Temperature 97.2 F L Pulse Rate 72 73 68 Respiratory Rate 18 Blood Pressure 135/71 Pulse Oximetry 100 Oxygen Delivery Fraction of Inspired Oxygen 10/25/24 06:00 10/25/24 09:09 Temperature 97.5 F L Pulse Rate 66 64 Respiratory Rate 18 Blood Pressure 104/80 Pulse Oximetry 100 Oxygen Delivery Fraction of Inspired Oxygen Intake/Output Intake/Output: Intake & Output 10/22/24 10/23/24 10/24/24 10/25/24 23:59 23:59 23:59 23:59 Intake Total 580 1330 1700 500 Output Total 900 1500 1950 1200 Balance -320 -170 -250 -700 Meds/Results Medications: Active Medications Generic Name Dose Route Start Last Admin Trade Name Freq PRN Reason Stop Dose Admin Acetaminophen 650 mg 10/18/24 18:28 10/23/24 14:38 Acetaminophen 325 Mg Tablet PO 650 mg Q4H PRN Administration Mild Pain (1-3) or Fever Amoxicillin/Clavulanate Potassium 1 tablet 10/23/24 21:00 10/25/24 09:09 Amoxicillin/Clavulanate K 875-125 Mg Tab PO 1 tablet Q12HR SUSY Administration Atorvastatin Calcium 10 mg 10/19/24 09:00 10/25/24 09:09 Atorvastatin 10 Mg Tablet PO 10 mg DAILY SUSY Administration Dextrose 12.5 gm 10/18/24 18:28 Dextrose 50% 25 Gm/50 Ml Syringe IV PUSH PRN PRN Hypoglycemia Protocol Doxycycline Hyclate 100 mg 10/21/24 21:00 10/25/24 09:09 Doxycycline Hyclate 100 Mg Tablet PO 100 mg Q12HR SUSY Administration Empagliflozin 10 mg 10/19/24 09:00 10/25/24 09:09 Empagliflozin 10 Mg Tablet BY MOUTH 10 mg DAILY SUSY Administration Enoxaparin Sodium 40 mg 10/19/24 09:00 10/25/24 09:10 Enoxaparin 40 Mg/0.4 Ml Syringe SUB-Q 40 mg DAILY SUSY Administration Ergocalciferol 50,000 units 10/19/24 16:25 10/19/24 18:30 Ergocalciferol 50,000 Units Capsule PO Not Given Mo@0900 SUSY Erythromycin 1 applic 10/20/24 17:00 10/25/24 09:10 Erythromycin Ophth Ointment 1 Gm Tube EACH EYE 1 applic Q4HWA SUSY Administration Glucagon 1 mg 10/18/24 18:28 Glucagon For Inj 1 Mg Vial IM PRN PRN Hypoglycemia Protocol Glucose 15 gm 10/18/24 18:28 Glucose Oral Gel 15 Gm Of Glucse In 37.5 Gm Tube PO PRN PRN Hypoglycemia Protocol Dextrose 1,000 mls @ 100 mls/hr 10/18/24 18:28 Dextrose 5% 1,000 Ml IVPB PRN PRN Hypoglycemia Protocol Insulin Aspart 1 - 3 units 10/19/24 21:00 10/25/24 06:09 Insulin Aspart (*Bkc) 100 Units/Ml SUB-Q Not Given HS SUSY Protocol Insulin Aspart 3 - 6 units 10/19/24 08:00 10/25/24 09:17 Insulin Aspart (*Bkc) 100 Units/Ml SUB-Q Not Given TIDWM SUSY Protocol Metoprolol Succinate 200 mg 10/19/24 09:00 10/25/24 09:09 Metoprolol Succinate Ext Rel 100 Mg Tabcr PO 200 mg DAILY SUSY Administration Ondansetron HCl 4 mg 10/18/24 18:28 Ondansetron Inj 4 Mg/2 Ml Vial IV PUSH Q4H PRN Nausea Pantoprazole Sodium 40 mg 10/19/24 09:00 10/25/24 09:09 Pantoprazole 40 Mg Tablet PO 40 mg Q12HR SUSY Administration Radiology Results: ITS Impressions Chest X-Ray 10/18/24 14:03 IMPRESSION: No acute cardiopulmonary process. Head CT 10/18/24 14:32 IMPRESSION: No acute intracranial process. Right mastoid opacification, may represent effusion versus exudate. Correlate for clinical findings of mastoiditis. Cervical Spine CT 10/18/24 14:48 IMPRESSION: No acute fracture or traumatic malalignment in the cervical spine. Chest/Abdomen/Pelvis CTA 10/18/24 14:58 IMPRESSION: No CT evidence of acute pulmonary embolus. Chronic pulmonary embolism in the right interlobar pulmonary artery. Moderate esophagitis. Ascending thoracic aortic ectasia, measuring up to 4.2 cm. Mild gastritis. Peripheral, somewhat wedge-shaped splenic hypodensities may represent splenic infarcts. No embolic source is detected. Indeterminate 2.0 cm left upper pole renal lesion, recommend nonemergent, outpatient CT or MRI with and without contrast for further evaluation. Gallbladder hydrops with wall hyperemia, correlate with biliary labs and symptoms of right upper quadrant pain. Cystitis. Possible mild fecal impaction. Abdomen Ultrasound 10/18/24 16:50 IMPRESSION: Biliary sludge with gallbladder wall thickening. Negative sonographic Cueva sign. Venous Doppler Study 10/19/24 09:00 IMPRESSION: 1: No lower extremity deep venous thrombosis. Foot X-Ray 10/19/24 14:02 IMPRESSION: 1. Deformities with chronic osteolysis centered at the right third and fourth metatarsophalangeal joints consistent with likely sequela of chronic to nsillitis. No evident acute osteomyelitis or other acute osseous abnormality. Joints. 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 3. Tiny foreign body at a near the skin surface at the plantar aspect of the base of the second toe. CT Brain Angiography 10/19/24 20:50 IMPRESSION: Moderate calcified atheromatous disease is identified within the bilateral intracranial internal carotid arteries, resulting in mild stenosis without occlusion. Duplex Scan Lower Extremity Artery 10/20/24 17:17 IMPRESSION: 1. No discernible flow on color Doppler at the right posterior tibial and dorsalis pedis arteries. Triphasic waveforms with brisk systolic upstrokes at the remaining arteries in the right lower limb. 2. Triphasic waveforms with brisk systolic upstrokes throughout the arteries of the left lower limb. Labs Labs: Laboratory Results - last 24 hr 10/24/24 10/24/24 10/24/24 11:52 17:08 20:01 POC Capillary Glucose 96 119 H 130 H 10/25/24 08:08 POC Capillary Glucose 108 H Quality VTE Prophylaxis VTE prophylaxis: pharmacologic ordered
[2024-10-25 11:37] LABS: Glucose Point of Care 128 mg/dl (65-105)
[2024-10-25 13:34] LABS: Basophils Absolute Auto 0.1 K/mm3 (0.0-0.1); Basophils Percent Auto 0.9 % (0.2-1.2); Eosinophils Absolute Auto 0.1 K/mm3 (0-0.3); Eosinophils Percent Auto 1.1 % (0-4.4); Hematocrit 33.9 % (37.0-47.0); Hemoglobin 10.1 g/dL (12.0-15.0); Immature Granulocyte Percent A 3.1 % (0-0.5); Lymphocytes Absolute Auto 0.85 K/mm3 (0.9-3.2); Lymphocytes Percent Auto 13.3 % (18.3-44.2); Mean Corpuscular HGB Conc 29.8 g/dl (32-36); Mean Platelet Volume 9.3 fl (7.4-10.4); Monocytes Absolute Auto 0.6 K/mm3 (0.1-0.6); Monocytes Percent Auto 9.5 % (2.6-8.5); Neutrophils Absolute Auto 4.6 K/mm3 (1.3-6.7); Neutrophils Percent Auto 72.1 % (45.5-73.1); Platelet Count Result 283 k/mm3 (150-375); Red Cell Distribution Width 20.4 % (11.5-14.5); White Blood Count 6.4 K/mm3 (4.5-10.0)
[2024-10-25 13:53] LABS: Platelet Estimate Adequate (Adequate)
[2024-10-25 13:54] LABS: Anisocytosis 2+; Hypochromasia 1+; Ovalocytes 1+; Schistocytes None Seen
[2024-10-25 13:56] LABS: Polychromasia 1+
[2024-10-25 13:57] LABS: Alanine Aminotransferase 12 U/L (6-35); Albumin Level 2.6 g/dL (3.5-5.1); Alkaline Phosphatase 116 U/L (38-126); Anion Gap 8 mmol/L (4-12); Aspartate Amino Transferase 26 U/L (14-36); Bilirubin,Total 0.4 mg/dL (0.2-1.3); Blood Urea Nitrogen 6 mg/dL (7-17); Carbon Dioxide 23 mmol/L (22-30); Chloride 107 mmol/L (98-107); Estimated CRCL calculation 65 ml/min; Estimated Glomerular Filt Rate > 60; Glucose 146 mg/dL (65-110); Potassium 4.1 mmol/L (3.4-5.0); Sodium 138 mmol/L (137-145)
[2024-10-25 18:08] LABS: Glucose Point of Care 145 mg/dl (65-105)
[2024-10-26] VITALS: PULSE 75
[2024-10-26 04:00] VITALS: PULSE 72
[2024-10-26 06:00] VITALS: BP 124/72; PULSE 76; RESP 18; TEMP 36.1; O2SAT 100
[2024-10-26] MEDS: ERYTHROMYCIN OPHTH OINTMENT 1 GM TUBE 1 APPLIC EACH EYE ×2 (06:16→11:20)
[2024-10-26 08:00] VITALS: PULSE 70
[2024-10-26 08:02] LABS: Glucose Point of Care 97 mg/dl (65-105)
--- NOTE | 2024-10-26 10:11 | PC.NURSE ---
Patient currently sleeping. at bedside requesting meds not be given until she wakes up. Will administer medications at that point
[2024-10-26] MEDS: AMOXICILLIN/CLAVULANATE K 875-125 MG TAB 1 TABLET PO (11:19)
[2024-10-26] MEDS: ERGOCALCIFEROL 50,000 UNITS CAPSULE 50000 UNITS PO (11:19)
[2024-10-26] MEDS: PANTOPRAZOLE 40 MG TABLET PO (11:19)
[2024-10-26 11:20] VITALS: PULSE 70
[2024-10-26] MEDS: ATORVASTATIN 10 MG TABLET PO (11:20)
[2024-10-26] MEDS: METOPROLOL SUCCINATE EXT REL 100 MG TABCR 200 MG PO (11:20)
[2024-10-26] MEDS: EMPAGLIFLOZIN 10 MG TABLET BY MOUTH (11:20)
[2024-10-26] MEDS: DOXYCYCLINE HYCLATE 100 MG TABLET PO (11:20)
[2024-10-26] MEDS: ENOXAPARIN 40 MG/0.4 ML SYRINGE SUB-Q (11:20)
[2024-10-26 11:59] LABS: Glucose Point of Care 112 mg/dl (65-105)
--- NOTE | 2024-10-26 12:57 | PM.DS ---
DS: Admitting Diagnosis Discharge Date 10/26/24 Admitting Diagnosis Osteomyelitis of left foot Septic arthritis of left foot Urinary tract infection Multiple wounds Thickening of wall of gallbladder Chronic pulmonary embolism Esophagitis with gastritis Adult failure to thrive Acute encephalopathy Lesion of left [place] kidney Type 2 diabetes mellitus DS: Discharge Diagnosis Discharge Diagnosis (1) Cutaneous abscess of left foot: Code(s): L02.612 - Cutaneous abscess of left foot Status: Acute (2) Osteomyelitis of left foot: Code(s): M86.9 - Osteomyelitis, unspecified Status: Acute (3) Septic arthritis of left foot: Code(s): M00.9 - Pyogenic arthritis, unspecified Status: Acute (4) Urinary tract infection: Code(s): N39.0 - Urinary tract infection, site not specified Status: Acute (5) Encephalopathy: Code(s): G93.40 - Encephalopathy, unspecified Status: Acute (6) Multiple wounds: Code(s): T07.XXXA - Unspecified multiple injuries, initial encounter Status: Acute (7) Thickening of wall of gallbladder: Code(s): K82.8 - Other specified diseases of gallbladder Status: Acute (8) Chronic pulmonary embolism: Code(s): I27.82 - Chronic pulmonary embolism Status: Acute (9) Esophagitis with gastritis: Code(s): K29.70 - Gastritis, unspecified, without bleeding; K20.90 - Esophagitis, unspecified without bleeding Status: Acute (10) Conjunctivitis: Code(s): H10.9 - Unspecified conjunctivitis Status: Acute (11) Adult failure to thrive: Code(s): R62.7 - Adult failure to thrive Status: Acute (12) Lesion of left [place] kidney: Code(s): N28.9 - Disorder of kidney and ureter, unspecified Status: Acute (13) Type 2 diabetes mellitus: Code(s): E11.9 - Type 2 diabetes mellitus without complications Status: Acute (14) Vitamin D deficiency: Code(s): E55.9 - Vitamin D deficiency, unspecified Status: Acute (15) Electrolyte abnormality: Code(s): E87.8 - Other disorders of electrolyte and fluid balance, not elsewhere classified Status: Acute DS: Summary Hospital Course Reason for hospitalization: Osteomyelitis of left foot Septic arthritis of left foot Urinary tract infection Multiple wounds Thickening of wall of gallbladder Chronic pulmonary embolism Esophagitis with gastritis Adult failure to thrive Acute encephalopathy Lesion of left [place] kidney Type 2 diabetes mellitus Hospital Course: This is a 64-year-old female with type 2 diabetes mellitus, hypertension, hyperlipidemia, significant hearing loss who presented to the emergency room with complaints of weakness. Workup in the hospital included a brain CT which showed old strokes, moderate atrophy and chronic white matter changes, and right mastoid opacification. Cervical spine CT was without any acute findings. CT of the chest/abdomen/pelvis showed a chronic pulmonary embolism in the right anterior lobe you will err pulmonary artery, moderate esophagitis, ascending thoracic aortic ectasia, mild gastritis, possible splenic infarcts cystitis and mild fecal impaction. Right upper quadrant ultrasound showed biliary sludge with gallbladder wall thickening with negative Cueva sign. Left foot x-ray showed finding suspicious for extensive 4 ft osteomyelitis and septic arthritis involving the 2nd through the 4th toes. Echocardiogram showed LV systolic function as normal with an estimated EF of 65-70%, grade 1 diastolic dysfunction, small patent foramen ovale, moderate aortic valve sclerosis, mild aortic valve stenosis. Respiratory panel was negative for influenza a and B, RSV, COVID. Initial labs showed a white blood cell count of 15.1, hemoglobin 12.2, platelet count 500, sodium 134, bicarb 21, anion gap 13, lactic acid 2.4, CRP 19.1. Blood cultures shown micrococcus species on final read. Wound cultures were obtained which shown bacteroids pyogenes, staph aureus, group b streptococcus isolated on final read. Patient was started on cefepime and vancomycin and General surgery was consulted. General surgery seen patient and recommended amputation of left foot versus hospice. decided to make her hospice instead of having the foot surgery considering her significant comorbidities. signed paperwork with [facility] and he opted for her to return home with his care. Cefepime and Vancomycin was changed to Doxycycline and Augmentin x6 weeks which we will continue upon discharge home per husbands wishes. She is stable for discharge at this time. Skinner catheter will remain for comfort. Final diagnosis: Osteomyelitis of left foot, septic arthritis of left foot, urinary tract infection, decubitus ulcer, adult failure to thrive, septic arthritis of left foot Status at Discharge Cognitive/behavioral status at discharge: Alert to self Functional status at discharge: bed bound Overall status at discharge: patient is not back to baseline Time Spent with Patient Time attestation: Total time spent providing and/or coordinating discharge services: Time spent: Greater than 30 minutes Exam Narrative: General: In no acute distress, well nourished ENT: Dry mucous membranes, nasal passages clear, missing multiple teeth, very hard of hearing, left eye red and injected Neck: supple, no JVD, no adenopathy, trachea midline Cardiac: Normal S1 and S2. Respiratory: Lungs clear to auscultation, no adventitious lung sounds, currently on room air Gastrointestinal: soft, non-distended, non-tender, normoactive bowel sounds. : Skinner catheter in place draining cloudy rosamaria colored urine Skin: Bilateral lower extremity with dressing in place, multiple wounds on right hip and underneath breast and axilla, buttocks excoriation Neuro: Alert to self Psych: interactive DS: Data Data Completed and Pending Completed studies during hospitalization: Chest x-ray Head CT Cervical spine CT Chest/abdomen/pelvis CTA Abdomen ultrasound Foot x-ray Venous Doppler study CT brain angiography Duplex scan of lower extremity arteries Pending studies at discharge: None Labs on day of discharge: Labs from last 24 hours 10/26/24 10/26/24 10/25/24 11:54 07:51 17:01 WBC RBC Hgb Hct MCV MCH MCHC RDW Plt Count MPV Immature Gran % (Auto) Neut % (Auto) Lymph % (Auto) [place] % (Auto) Eos % (Auto) Baso % (Auto) Lymph # (Auto) [place] # (Auto) Eos # (Auto) Baso # (Auto) Abs Immat Gran (auto) Absolute Neuts (auto) Absolute Nucleated RBC Band Neutrophils % Nucleated RBC % Platelet Estimate Polychromasia Hypochromasia Anisocytosis Ovalocytes Schistocytes Sodium Potassium Chloride Carbon Dioxide Anion Gap BUN Creatinine Estim Creat Clear Calc Estimated GFR Glucose POC Capillary Glucose 112 H 97 145 H Calcium Total Bilirubin AST ALT Alkaline Phosphatase Total Protein Albumin 10/25/24 13:29 WBC 6.4 RBC 4.40 Hgb 10.1 L Hct 33.9 L MCV 77.0 L MCH 23.0 L MCHC 29.8 L RDW 20.4 H Plt Count 283 MPV 9.3 Immature Gran % (Auto) 3.1 H Neut % (Auto) 72.1 Lymph % (Auto) 13.3 L [place] % (Auto) 9.5 H Eos % (Auto) 1.1 Baso % (Auto) 0.9 Lymph # (Auto) 0.85 L [place] # (Auto) 0.6 Eos # (Auto) 0.1 Baso # (Auto) 0.1 Abs Immat Gran (auto) 0.20 H Absolute Neuts (auto) 4.6 Absolute Nucleated RBC 0.000 Band Neutrophils % Not Reportable Nucleated RBC % 0.0 Platelet Estimate Adequate Polychromasia 1+ Hypochromasia 1+ Anisocytosis 2+ Ovalocytes 1+ Schistocytes None seen Sodium 138 Potassium 4.1 Chloride 107 Carbon Dioxide 23 Anion Gap 8 BUN 6 L Creatinine 0.69 L Estim Creat Clear Calc 65 Estimated GFR > 60 Glucose 146 H POC Capillary Glucose Calcium 8.0 L Total Bilirubin 0.4 AST 26 ALT 12 Alkaline Phosphatase 116 Total Protein 6.0 L Albumin 2.6 L Procedures/Treatments: None Discharge Plan Discharge Attending physician on discharge: Lashae Fernandez Consulting providers: Nicole Yin Discharging Clinician: Analy Stephenson Anticipated Discharge Date/Time: 10/26/24 12:45 Patient Disposition: Hospice - Home Activity: as tolerated Diet: as tolerated Discharge Instructions: Discharged home to [facility] Finish all your antibiotic as directed Follow up with your primary care doctor as needed Skinner catheter will need to be drained daily, follow instructions on skinner care to avoid catheter associated infections. Patient Instructions: Doxycycline (By mouth), Amoxicillin/Clavulanate Potassium (By mouth), Osteomyelitis (DC), Skinner Catheter Placement and Care (DC) Patient Language: Pakistani Stand Alone Forms: General Discharge Information Follow-up/Referrals: Cornelio Valdez MD [Primary Care Provider] - 1 Week Discharge Medications: New erythromycin 5 mg/gram (0.5 %) Ointment 1 applic EACH EYE Q4HWA Qty: 3.5 0RF amoxicillin-pot clavulanate 875-125 mg tablet 1 tablet PO Q12H Qty: 74 0RF doxycycline hyclate 100 mg Tablet 100 mg PO Q12HR Qty: 74 0RF Continued (DME) FreeStyle Nithin 14 Day Sensor Kit See Rx Instructions .Route Qty: 1 3RF Rx Instructions: As directed metformin 500 mg tablet 500 mg PO BID Rx Instructions: TAKE 1 TABLET BY MOUTH TWICE DAILY WITH A MEAL atorvastatin 10 mg tablet 10 mg PO DAILY Rx Instructions: TAKE 1 TABLET BY MOUTH EVERY DAY dapagliflozin propanediol [Farxiga] 5 mg tablet 5 mg PO DAILY metoprolol succinate 200 mg tablet extended release 24 hr 200 mg PO DAILY Qty: 90 1RF Date of admission: 10/19/24 07:24 Primary Care Provider: Cornelio Valdez Admitting Provider: Rosalio Madrigal Attending physician on admission: Analy Stephenson Condition: Improved Quality VTE Prophylaxis VTE prophylaxis: pharmacologic ordered Hospitalist MIPS Heart Failure (Exclusion) Patient has history of Heart Transplant or Left Ventricular Assistive Device?: No IF YES, STOP HERE Heart Failure (Qualifier) Patient has current or prior documentation of LVEF less than or equal to 40%, or mod/servere depressed LVSF?: No IF NO, STOP HERE
[2024-10-26 13:13] VITALS: BMI 10.0
[2024-10-26 14:48] LABS: Glucose Point of Care 130 mg/dl (65-105)
== END 2024-10-26 17:55 | disposition hospice, home (50) | DRG 516 ==
LOC: ANHED 12:53 → ANH3MEDSUR 19:35 → ANH3MED 20:06
PROVIDERS: Physician Assistant; Surgery; Admitting Provider Internal Medicine; Emergency Provider Student in an Organized Health Care Education/Training Program; PCP Family Medicine; Visit Provider Nurse Practitioner Acute Care
PROC: 0QBR0ZZ Excision of Left Toe Phalanx, Open Approach (ICD-10-PCS; principal; 2024-10-19 16:30)
DX: M00.072 Staphylococcal arthritis, left ankle and foot (principal); E11.52 Type 2 diabetes mellitus with diabetic peripheral angiopathy with gangrene; G93.49 Other encephalopathy; N39.0 Urinary tract infection, site not specified; M86.172 Other acute osteomyelitis, left ankle and foot; I27.82 Chronic pulmonary embolism; K82.1 Hydrops of gallbladder; L02.612 Cutaneous abscess of left foot; M00.9 Pyogenic arthritis, unspecified; E11.69 Type 2 diabetes mellitus with other specified complication; E11.65 Type 2 diabetes mellitus with hyperglycemia; R62.7 Adult failure to thrive; Z68.27 Body mass index [BMI] 27.0-27.9, adult; K82.8 Other specified diseases of gallbladder; N28.9 Disorder of kidney and ureter, unspecified; E55.9 Vitamin D deficiency, unspecified; B95.1 Streptococcus, group B, as the cause of diseases classified elsewhere; I77.810 Thoracic aortic ectasia; E11.3519 Type 2 diabetes mellitus with proliferative diabetic retinopathy with macular edema, unspecified eye; E78.5 Hyperlipidemia, unspecified; Z90.710 Acquired absence of both cervix and uterus; E11.621 Type 2 diabetes mellitus with foot ulcer; L97.529 Non-pressure chronic ulcer of other part of left foot with unspecified severity; Z20.822 Contact with and (suspected) exposure to COVID-19; K29.70 Gastritis, unspecified, without bleeding; K20.90 Esophagitis, unspecified without bleeding; H10.32 Unspecified acute conjunctivitis, left eye; I10 Essential (primary) hypertension; E87.8 Other disorders of electrolyte and fluid balance, not elsewhere classified; L89.159 Pressure ulcer of sacral region, unspecified stage; Z74.01 Bed confinement status
CPT/HCPCS: 36415; 70450; 70496; 71045; 71275; 72125; 73620; 74177; 76705; 80048; 80053; 80143; 80179; 80202; 80307; 81001; 82077; 82140; 82306; 82550; 82607; 82728; 82746; 82948; 83036; 83540; 83550; 83605; 83690; 83735; 84100; 84134; 84443; 84484; 85025; 85027; 85610; 85730; 86140; 86850; 86900; 86901; 87040; 87070; 87075; 87181; 87205; 87637; 93005; 93306; 93925; 93970; 96365; 96366; 96367; 96375; 97110; 97162; 97166; 97530; 97535; 99285; A9270; G0378; J0692; J0696; J1650; J1836; J2405; J2704; J3370; J7030; J7120; Q9967

== ENCOUNTER 2024-11-02 12:37 | Emergency (ER) | payer BC, SELFPAY ==
--- NOTE | ~2024-11-02 | CT_ITS ---
EXAMINATION: CT cervical spine wo con DATE: 11/02/2024 15:34 INDICATION: Fall TECHNIQUE: Computed tomography (CT) of the cervical spine was performed without intravenous contrast. Automated exposure control and iterative reconstruction technique were employed. The dose-length pro duct was 181.65 mGy-cm. COMPARISON: None FINDINGS: There is some motion artifact at the level of the odontoid process with severe osteoarthritis at the atlantoaxial articulation.. Mild reversal of the normal cervical lordosis which could be positional o r due to muscle spasm. There are developmental butterfly vertebrae C3-T2, most prominent at C4, C6 an d C7. No fracture. Moderate disc height loss with severe uncovertebral osteoarthritis at C5-C6, C6-C7 and C7-T1. Mild disc height loss at C2-C3. Mild to moderate multilevel cervical facet osteoarthritis . Disc bulges contributing to mild central canal stenosis at C3-C4, C4-C5, C6-C7 and C7-T1. There is also mild multilevel bilateral cervical neural foraminal stenosis. Atherosclerotic calcifications at the bilateral carotid bulbs. Cervical soft tissues are otherwise unremarkable. Visualized apices of t he lungs are clear. IMPRESSION: 1. 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 No acute osseous abnor mality. Reviewed, dictated and finalized at location A. IMPRESSION: 1. 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 No acute osseous abnormality.
--- NOTE | ~2024-11-02 | CT_ITS ---
CT brain wo con Ordering provider: Jessy Felton MD History: 64 years Female with . fall . Comparison: None. Technique: CT of the head without contrast. Radiation reduction technique utilized. The dose-length p roduct was 747.47 mGy-cm. FINDINGS: BRAIN PARENCHYMA AND CSF SPACES: Mild leukoaraiosis and diffuse cortical atrophy. Mild atheromatous d isease. No midline shift, mass effect or hemorrhage. The brain parenchyma and CSF spaces are otherwi se normal. VISUALIZED PARANASAL SINUSES: Right sphenoid sinus disease. Otherwise, Well aerated. MASTOIDS: Well aerated. BONES: The bones appear intact. SOFT TISSUES: Visualized nasopharynx is normal. Superficial soft tissues are normal. IMPRESSION: No acute intracranial findings. Reviewed, dictated and finalized at location A.
--- NOTE | ~2024-11-02 | CT_ITS ---
EXAMINATION: CT diagnostic chest wo con DATE: 11/02/2024 15:34 INDICATION: fall TECHNIQUE: Computed tomography (CT) of the chest was performed without intravenous contrast. Addition al 3D reconstructions utilizing coronal maximum intensity projection (MIP) were performed. Automated exposure control and iterative reconstruction technique were employed. The dose-length product was 30 5.02 mGy-cm. COMPARISON: 10/18/2024 FINDINGS: Lungs are clear with no pneumonia, pulmonary hemorrhage, pulmonary edema or other pulmonary infiltrat es. No pleural effusion or pneumothorax. Heart size is normal. Atherosclerotic coronary artery calcif ic location. No pericardial effusion. 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 No pathologically enlarged thoracic lymphadenopathy. Small sliding-type hiatal hernia with wall thickening the distal esophagus which could be related to reflux.. Mild to moderate thorac ic and lower cervical spondylosis. Multiple chronic butterfly vertebral bodies in the thoracic and lo wer cervical spine. No acute osseous abnormality. The visualized upper abdomen is unremarkable. IMPRESSION: 1. No acute osseous abnormality or acute cardiopulmonary disease. 2. Small sliding type hiatal hernia with wall thickening the distal esophagus which could be related to secondary gastroesophageal reflux and esophagitis. Reviewed, dictated and finalized at location A. IMPRESSION: 1. No acute osseous abnormality or acute cardiopulmonary disease. 2. Small sliding type hiatal hernia with wall thickening the distal esophagus w hich could be related to secondary gastroesophageal reflux and esophagitis.
[2024-11-02 12:44] VITALS: BP 104/83; PULSE 123; RESP 18; TEMP 37.7; O2SAT 100
--- NOTE | 2024-11-02 13:18 | ECG_ITS ---
Test Date: 2024-11-02 13:27:03 Measurements Intervals Romulus Rate: 126 P: 14 NC: 142 QRS: -59 QRSD: 76 T: 48 QT: 304 QTc: 441 Interpretive Statements SINUS TACHYCARDIA LEFT ANTERIOR FASCICULAR BLOCK BORDERLINE ST-T WAVE ABNORMALITY- ANT/INF LEADS BASELINE ARTIFACT- I, II, III, AVR, AVL, AVF, V2 ABNORMAL ECG Compared to ECG 10/18/2024 13:42:54 HEART RATE HAS INCREASED Left anterior fascicular block now present Electronically Signed On 11-02-2024 13:31:13 CDT by Mu Riley D.O.
--- NOTE | 2024-11-02 13:23 | PC.NURSE ---
Pt cleaned up and Zuniga cath changed, draining dark brown urine.
[2024-11-02 13:25] VITALS: O2SAT 100
--- NOTE | 2024-11-02 13:37 | ED.GENADULT ---
HPI - General Adult General Chief complaint: Altered Mental Status Stated complaint: ams Time Seen by Provider: 11/02/24 13:36 Source: family and EMS Mode of arrival: EMS History of Present Illness HPI narrative: 64 years old white female came by ambulance to the ED from home because of a fall. The is telling me that patient rolled out of bed, unwitnessed, found her laying down between the dresser and the bed could not get her up. Call 911. Patient is telling me the height of the bed at 3 ft,. History of diabetes, hypertension, hyperlipidemia, CVA, dementia, bed ridden, chronic indwelling Zuniga catheter. is telling me that patient on hospice declined the idea of comfort measures only and would like to treat anything treatable. Related Data Home Medications ?Medication ?Instructions ?Recorded ?Confirmed ?Last Taken ?Type atorvastatin 10 mg tablet 10 mg PO DAILY 05/04/24 10/18/24 Unknown History metformin 500 mg tablet 500 mg PO BID 05/04/24 10/18/24 Unknown History dapagliflozin propanediol 5 mg 5 mg PO DAILY 10/18/24 10/18/24 Unknown History tablet (Farxiga) Allergies Allergy/AdvReac Type Severity Reaction Status Date / Time No Known Allergies Allergy Verified 05/13/23 14:13 Review of Systems Review of Systems: ROS unobtainable: Yes unobtainable due to medical condition and unobtainable due to mental status PMFSH Past Medical History Medical History Aortic ectasia, thoracic ascending thoracic aortic ectasia measuring up to 4.[address] scan on 09/21/2024 Hard of hearing 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 Code status: Full code. Smoking status: Never smoker Second hand tobacco smoke exposure: Yes Alcohol intake: never Substance use: never Substance use type: does not use Do You Feel Safe in your Home?: Yes Lack of Transportation: No Lack of Food: Never True Current Housing: I Have Housing Concerned About Future Housing: No Difficulty Paying Gas/Electric Bills: No Difficulty Paying for Meds: No Currently Unemployed: No Education: High School Diploma/GED Difficulty w/ Childcare or Family Care: No Living arrangements: with family Additional living arrangements comments: Lives with spouse in [place]. Occupation/Education: unemployed Spiritual care concerns: No Exam Narrative: General appearance: Well-developed, well-nourished laying down in bed, eyes opened, not following verbal commands Skin: Normal color Head: Normocephalic, nontraumatic Eyes: Clear conjunctiva ENT: Oropharynx normal, ears normal, nose normal Neck: Nontender Chest and respiratory: Airway patent, no respiratory distress, no accessory muscle use diffuse tenderness bilaterally, no bruises Heart: Regular rate/rhythm Abdomen: Soft, nontender, no organomegaly, quiet bowel sounds Vascular: Normal peripheral pulses, normal capillary refill. Musculoskeletal: Diffuse tenderness upper and lower extremities, patient is contracted, no deformity, pain with any movement Neurologic: Alert, awake, disoriented x4 Course Vital Signs Vital signs: Vital Signs Temperature 37.7 C H 11/02/24 12:44 Pulse Rate 123 H 11/02/24 12:44 Respiratory Rate 18 11/02/24 12:44 Blood Pressure 104/83 11/02/24 12:44 Pulse Oximetry 100 11/02/24 12:44 Oxygen Delivery Room Air 11/02/24 12:44 Temperature 37.7 C H 11/02/24 12:44 Pulse Rate 123 H 11/02/24 12:44 Respiratory Rate 18 11/02/24 12:44 Blood Pressure 104/83 11/02/24 12:44 Pulse Oximetry 100 11/02/24 13:25 Oxygen Delivery Room Air 11/02/24 13:25 Medical Decision Making MDM Narrative Medical decision making narrative: Patient is bed ridden, dementia, had a fall out of her bed this morning Vital signs showing blood pressure 104/83, heart rate 123, temperature 37.7?. Physical examination showing a patient lying down in bed, does not look in pain or distress, contracted, dementia, does not follow verbal commands Differential diagnosis include sepsis, urinary tract infection, electrolyte imbalance, dehydration, intracranial bleed, fracture, pneumonia CT head, CT cervical, CT chest, thoracic spine and lumbar spine showed no acute osseous abnormality Patient requested imaging only, without any blood workup or any other intervention. He would like to know if she has any bleed in the brain or anything broken otherwise declined any blood workup or IV fluid or any treatment. He changed his mind after our social service/mental health case manager came down to the ED and discussed with him that the patient is hospice. Differential Diagnosis Differential Diagnosis: As above Vital Signs Vital Signs: Vital Signs Temperature 37.7 C H 11/02/24 12:44 Pulse Rate 123 H 11/02/24 12:44 Respiratory Rate 18 11/02/24 12:44 Blood Pressure 104/83 11/02/24 12:44 Pulse Oximetry 100 11/02/24 12:44 Oxygen Delivery Room Air 11/02/24 12:44 Temperature 37.7 C H 11/02/24 12:44 Pulse Rate 123 H 11/02/24 12:44 Respiratory Rate 18 11/02/24 12:44 Blood Pressure 104/83 11/02/24 12:44 Pulse Oximetry 100 11/02/24 13:25 Oxygen Delivery Room Air 11/02/24 13:25 Lab Data 11/02/24 13:38 11/02/24 13:38 Labs: Lab Results 11/02/24 Range/Units 13:38 WBC 6.0 (4.5-10.0) K/mm3 RBC 5.60 H (4.2-5.4) M/mm3 Hgb 13.1 D (12.0-15.0) g/dL Hct 44.8 (37.0-47.0) % MCV 80.0 (80-100) fl MCH 23.4 L (26-34) pg MCHC 29.2 L (32-36) g/dl RDW 25.2 H (11.5-14.5) % Plt Count 314 (150-375) k/mm3 MPV 10.0 (7.4-10.4) fl Immature Gran % (Auto) 0.7 H (0-0.5) % Neut % (Auto) 74.5 H (45.5-73.1) % Lymph % (Auto) 13.0 L (18.3-44.2) % Charles % (Auto) 10.5 H (2.6-8.5) % Eos % (Auto) 0.3 (0-4.4) % Baso % (Auto) 1.0 (0.2-1.2) % Lymph # (Auto) 0.78 L (0.9-3.2) K/mm3 Charles # (Auto) 0.6 (0.1-0.6) K/mm3 Eos # (Auto) 0.0 (0-0.3) K/mm3 Baso # (Auto) 0.1 (0.0-0.1) K/mm3 Abs Immat Gran (auto) 0.04 H (0.00-0.031) K/mm3 Absolute Neuts (auto) 4.5 (1.3-6.7) K/mm3 Absolute Nucleated RBC 0.000 (0.0-0.012) K/mm3 Band Neutrophils % Not Reportable Nucleated RBC % 0.0 (0.0-0.2) % Platelet Estimate Adequate (Adequate) Hypochromasia 1+ Anisocytosis 1+ Schistocytes None seen PT 13.9 (11.1-14.7) Seconds INR 1.0 APTT 21.1 L (22.3-36.8) Seconds Sodium 137 (137-145) mmol/L Potassium 4.6 (3.4-5.0) mmol/L Chloride 100 (98-107) mmol/L Carbon Dioxide 21 L (22-30) mmol/L Anion Gap 16 H (4-12) mmol/L BUN 9 (7-17) mg/dL Creatinine 0.70 (0.7-1.0) mg/dL Estim Creat Clear Calc Not Reportable Estimated GFR > 60 (59 - ) Glucose 150 H (65-110) mg/dL Calcium 9.0 (8.4-10.2) mg/dL Total Bilirubin 0.9 (0.2-1.3) mg/dL AST 42 H (14-36) U/L ALT 19 (6-35) U/L Alkaline Phosphatase 99 (38-126) U/L Total Protein 7.0 (6.3-8.2) g/dL Albumin 3.8 (3.5-5.1) g/dL Imaging Data Radiologist's impression: Impressions Head CT 11/02/24 15:39 IMPRESSION: No acute intracranial findings. Chest CT 11/02/24 15:45 IMPRESSION: 1. No acute osseous abnormality or acute cardiopulmonary disease. 2. Small sliding type hiatal hernia with wall thickening the distal esophagus which could be related to secondary gastroesophageal reflux and esophagitis. Cervical Spine CT 11/02/24 15:56 IMPRESSION: 1. 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 No acute osseous abnormality. Critical Care Time Critical Care Time Critical Care Time: Yes Total Critical Care Time: 30 Discharge Plan Discharge Clinical Impression: Fall Patient Disposition: Home Condition: Stable Instructions: Fall Prevention for Older Adults (ED) Additional Instructions: Return if symptoms are worsening , call your family physician for appointment, take Tylenol as as needed for aches and pain, continue home medications. Patient Language: Pakistani Prescriptions: No Action (DME) [employer] 14 Day Sensor Kit See Rx Instructions .Route Qty: 1 3RF Rx Instructions: As directed metformin 500 mg tablet 500 mg PO BID Rx Instructions: TAKE 1 TABLET BY MOUTH TWICE DAILY WITH A MEAL atorvastatin 10 mg tablet 10 mg PO DAILY Rx Instructions: TAKE 1 TABLET BY MOUTH EVERY DAY dapagliflozin propanediol [Farxiga] 5 mg tablet 5 mg PO DAILY erythromycin 5 mg/gram (0.5 %) Ointment 1 applic EACH EYE Q4HWA Qty: 3.5 0RF amoxicillin-pot clavulanate 875-125 mg tablet 1 tablet PO Q12H Qty: 74 0RF doxycycline hyclate 100 mg Tablet 100 mg PO Q12HR Qty: 74 0RF metoprolol succinate 200 mg tablet extended release 24 hr 200 mg PO DAILY Qty: 90 1RF Follow-up/Referrals: Cornelio Valdez MD [Primary Care Provider] -
[2024-11-02 13:51] LABS: Basophils Absolute Auto 0.1 K/mm3 (0.0-0.1); Eosinophils Percent Auto 0.3 % (0-4.4); Hematocrit 44.8 % (37.0-47.0); Hemoglobin 13.1 g/dL (12.0-15.0); Immature Granulocyte Absolute 0.04 K/mm3 (0.00-0.031); Immature Granulocyte Percent A 0.7 % (0-0.5); Lymphocytes Absolute Auto 0.78 K/mm3 (0.9-3.2); Mean Corpuscular HGB Conc 29.2 g/dl (32-36); Mean Corpuscular Hemoglobin 23.4 pg (26-34); Monocytes Absolute Auto 0.6 K/mm3 (0.1-0.6); Monocytes Percent Auto 10.5 % (2.6-8.5); Neutrophils Absolute Auto 4.5 K/mm3 (1.3-6.7); Neutrophils Percent Auto 74.5 % (45.5-73.1); Platelet Count Result 314 k/mm3 (150-375); Red Cell Distribution Width 25.2 % (11.5-14.5)
[2024-11-02 14:10] LABS: Alanine Aminotransferase 19 U/L (6-35); Albumin Level 3.8 g/dL (3.5-5.1); Alkaline Phosphatase 99 U/L (38-126); Anion Gap 16 mmol/L (4-12); Aspartate Amino Transferase 42 U/L (14-36); Bilirubin,Total 0.9 mg/dL (0.2-1.3); Blood Urea Nitrogen 9 mg/dL (7-17); Carbon Dioxide 21 mmol/L (22-30); Chloride 100 mmol/L (98-107); Estimated Glomerular Filt Rate > 60; Glucose 150 mg/dL (65-110); Potassium 4.6 mmol/L (3.4-5.0); Sodium 137 mmol/L (137-145)
[2024-11-02 14:13] LABS: Prothrombin Time 13.9 Seconds (11.1-14.7)
[2024-11-02 14:14] LABS: Partial Thromboplastin Time 21.1 Seconds (22.3-36.8)
[2024-11-02 14:15] LABS: Hypochromasia 1+; Platelet Estimate Adequate (Adequate); Schistocytes None Seen
[2024-11-02 14:17] LABS: Anisocytosis 1+
--- NOTE | 2024-11-02 15:07 | PCCCNOTE ---
1410: Called to the ED to speak with pt's regarding her hospice status. Pt is on [facility] hospice services. She had a fall this AM and her was unable to get her back into the bed. He spoke with hospice and they recommended a lift assist by the non emergent EMS line. When EMS arrived, they decided to send pt to the ED for evaluation. The ED doctor spoke with the regarding pt being on hospice vs pt getting a full septic work-up. The wanted everything done, but did not understand that this would revoke hospice if he wanted her treated. He did not want her off of hospice and after speaking with him, he decided not to put her through any more tests. Dr. Felton, pt's nurse, and myself went back into the room and spoke with the . Dr. Felton would like to get a CT of her head and neck prior to discharging her back home, the was agreeable to this. I spoke with the [facility] hospice nurse, Milad to inform him that she was brought here. I told him the plan of scanning the pt's head and neck prior to discharge, he said that was fine. After pt results are back, she will be discharged back home with hospice. I will contact him when pt is discharged so they can send a nurse to see her tonight. The verbalized understanding and was aware that he could revoke hospice and have her evaluated and treated, but he said she would rather be home.
--- OUTSIDE RECORDS SUMMARY | 2024-11-02 15:25 | XMS_ITS | Clinical Summary ---
Author Organization [facility] Address [address] [place] [address] Care Team Providers Care Baking Powder Mixer Name Role Phone Cornelio Valdez MD Primary Care Provider [phone] Source Comments [facility],non-owned Affiliates and Associated Physician Practices is amultiple site organization consisting of ambulatory clinics and hospital sitesin [place] and [place]. This disclosure is being madepursuant to the Care Everywhere program and may not contain all information available regarding this patient. Last updated 18.[facility] Allergies No known active allergies Medications * Be aware that medications may not be up to date on this document. Alwaysverify current medications with the patient. atorvastatin (Lipitor) 10 MG tabletIndication s:Hyperlipidemia Take 1 tablet by mouth at bedtime Reasons: High Amount of Fats in the Blood Active dapagliflozin propanediol (Farxiga) 5 MG tabletIndication s:Type 2 Diabetes Mellitus Take 1 tablet by mouth every morning Reasons: Type 2 Diabetes Active indapamide (Lozol) 2.5 MG tabletIndication s:Hypertension Take 1 tablet by mouth once daily Reasons: High Blood Pressure Disorder Active lisinopril (Prinivil; Zestril) 20 MG tabletIndication s:Hypertension Take 1 tablet by mouth once daily Reasons: High Blood Pressure Disorder Active metFORMIN (Glucophage) 500 MG tabletIndication s:Type 2 Diabetes Mellitus Take 1 (one) tablet by mouth 2 times daily with morning and evening meal Reasons: Type 2 Diabetes Active metoprolol succinate XL 24hr (Toprol XL) 50 MG tabletIndication s:Hypertension Take 2 (two) tablets by mouth once daily Reasons: High Blood Pressure Disorder 1 Active prednisoLONE acetate (prednisoLONE Acetate P-F) 1 % ophthalmic suspension Instill 1 (one) drop into right eye 2 times daily Active metroNIDAZOLE (Flagyl) 500 MG tabletIndication s:INFECTION Take 500 mg by mouth 3 times daily. RX # [id number] Indications: INFECTION 3 Active cephalexin (Keflex) 500 MG capsuleIndicatio ns:Bone Infection Take 500 mg by mouth 3 times daily. Indications: Bone Infection 3 Active Active Problems Problem Noted Date Diagnosed Date Cellulitis of right foot 05/27/2023 Right foot infection 04/24/2023 Immunizations Immunization Administration Dates Next Due INFLUENZA VACCINE, QUADR. [...] and heating? Not hard at all 05/28/2023 [facility] [place] of Occupat ional Health - Occupational Stress [...] place to sleep or slept in a senior care (including now)? No 05/28/2023 Comments No Sex and Gender Information Value Date Recorded Sex Assigned at Not on file Legal Sex Female 8:25 PM CDT Gender Identity Not on file Sexual Orientation Not on file Last Filed Vital Signs Vital Sign Reading Time Taken Comments Blood Pressure 124/72 08/16/2023 10:03 AM TARE WEIGHER Pulse 76 08/16/2023 10:03 AM TARE WEIGHER Temperature 36.4 C (97.5 F) 08/16/2023 10:03 AM TARE WEIGHER Respiratory Rate 16 08/16/2023 10:03 AM TARE WEIGHER Oxygen Saturation 99% 08/16/2023 10:03 AM TARE WEIGHER Inhaled Oxygen Concentration - - Weight 83.9 kg (185 lb) 05/10/2023 1:03 PM CDT Height 149.9 cm (4' 11.02 ) 05/28/2023 4:[address] Body Mass Index 37.37 05/10/2023 1:03 PM CDT Plan of Treatment Health Maintenance Due Date Last Done Comments OGUARD (AGES 45-75) - COL ON CA SCREENING [...] 2023-2 5 season) 2024 06/28/2021, 11/09/2020, 10/12/2020 DEPRESSION SCREENING 07/22/2024 INFLUENZA VACCINE (Season Ended) 2025 04/29/2023, 04/26/2022, 06/09/2020 HEPATITIS B VACCINE Aged Out No longe [...] this topic Medical Devices Implanted Type Area Reservation Clerk Device Identifier Shelf Expiration Date Model / Serial / Lot Graft Skn Surgiclose 38sq Cm Nehemiah Omega3 Implanted:Qty: 1 on 05/29/2023 by Glenda Ceron DPM at [facility] Right: Foot [employer] 08/22/2025 [id number] / / [id number] X Kerecis Omega3 Surgibind Fenestrated Implanted:Qty: 1 on 05/29/2023 by Glenda Ceron DPM at [facility] Right: Foot 11/19/2024 [id number] / / [id number] B Insurance ANTHEM Advance Directives * Full Code (Latest Code [...] 3:33 AM 05/08/2023 10:50 PM Care Teams Baking Powder Mixer Relationship Specialty Start Date End Date Cornelio Valdez MD [address] [place] [id number] PCP - General Family Medicine 04/25/23
[2024-11-02 18:32] VITALS: BP 121/78; PULSE 107; RESP 16; O2SAT 100
== END 2024-11-02 18:35 | disposition hospice, home (50) ==
PROVIDERS: Emergency Provider Emergency Medicine; PCP Family Medicine
DX: Z04.3 Encounter for examination and observation following other accident (principal); F03.90 Unspecified dementia, unspecified severity, without behavioral disturbance, psychotic disturbance, mood disturbance, and anxiety; I10 Essential (primary) hypertension; I77.810 Thoracic aortic ectasia; E78.5 Hyperlipidemia, unspecified; E11.3519 Type 2 diabetes mellitus with proliferative diabetic retinopathy with macular edema, unspecified eye; Z74.01 Bed confinement status; Z86.73 Personal history of transient ischemic attack (TIA), and cerebral infarction without residual deficits; Z90.710 Acquired absence of both cervix and uterus; Z77.22 Contact with and (suspected) exposure to environmental tobacco smoke (acute) (chronic); Z79.84 Long term (current) use of oral hypoglycemic drugs; Z79.899 Other long term (current) drug therapy; K44.9 Diaphragmatic hernia without obstruction or gangrene; M47.812 Spondylosis without myelopathy or radiculopathy, cervical region; R94.31 Abnormal electrocardiogram [ECG] [EKG]; R00.0 Tachycardia, unspecified; I44.0 Atrioventricular block, first degree; W06.XXXA Fall from bed, initial encounter
CPT/HCPCS: 36415; 51702; 70450; 71250; 72125; 80053; 85025; 85610; 85730; 93005; 99284

== ENCOUNTER 2024-11-07 14:57 | Emergency (ER) | payer BC, SELFPAY ==
--- OUTSIDE RECORDS SUMMARY | 2024-11-07 15:10 | XMS_ITS | Clinical Summary ---
Author Organization [facility] Address [address] [place] [address] Care Team Providers Care Pile Driver Operator Name Role Phone Cornelio Valdez MD Primary Care Provider [phone] Source Comments [facility],non-owned Affiliates and Associated Physician Practices is amultiple site organization consisting of ambulatory clinics and hospital sitesin [place], [place], [place] and [place]. This disclosure is being madepursuant to the Care Everywhere program and may not contain all information available regarding this patient. Last updated 18.[facility] Allergies No known active allergies Medications * [...] by mouth 3 times daily. RX # [id number] Indications: INFECTION 3 Active cephalexin (Keflex) 500 [...] and heating? Not hard at all 05/28/2023 [facility] [place] of Occupat ional Health - Occupational Stress [...] place to sleep or slept in a assisted (including now)? No 05/28/2023 Comments No Sex and Gender Information Value Date Recorded Sex Assigned at Not on file Legal Sex Female 8:25 PM CDT Gender Identity Not on file Sexual Orientation Not on file Last Filed Vital Signs Vital Sign Reading Time Taken Comments Blood Pressure 124/72 08/16/2023 10:03 AM TOY MECHANIC Pulse 76 08/16/2023 10:03 AM TOY MECHANIC Temperature 36.4 C (97.5 F) 08/16/2023 10:03 AM TOY MECHANIC Respiratory Rate 16 08/16/2023 10:03 AM TOY MECHANIC Oxygen Saturation 99% 08/16/2023 10:03 AM TOY MECHANIC Inhaled Oxygen Concentration - - Weight 83.9 [...] this topic Medical Devices Implanted Type Area Master Fisher Device Identifier Shelf Expiration Date Model / Serial / Lot Graft Skn Surgiclose 38sq Cm Nehemiah Omega3 Implanted:Qty: 1 on 05/29/2023 by Glenda Creon DPM at [facility] Right: Foot [employer] 08/22/2025 [id number] / / [id number] X [employer]is Omega3 Surgibind Fenestrated Implanted:Qty: 1 on 05/29/2023 by Glenda Ceron DPM at [facility] Right: Foot 11/19/2024 [id number] / / [id number] B Insurance ANTHEM Advance Directives * Full [...] 3:33 AM 05/08/2023 10:50 PM Care Teams Pile Driver Operator Relationship Specialty Start Date End Date Cornelio Valdez MD [address] [place] [id number] PCP - General Family Medicine 04/25/23
[2024-11-07 15:12] VITALS: BP 116/82; PULSE 111; RESP 16; TEMP 36.9; O2SAT 96
--- NOTE | 2024-11-07 15:32 | PCCCNOTE ---
Called to the ED d/t the pt having fallen out of bed, possibly in hospice care and wanting Care Coordination to be involved. Came to the pt's room noted the nurses at bedside providing care, stated the pt had been reported by EMS to fall at home today. walked into the room stating, they told me I could come in . Stated she rolled out of bed hitting her head on furniture causing bleeding from her mouth. Stated he was unsure of exact dentition before d/t the pt having refused oral care for quite some time. Verified the pt is on hospice services with [facility]. Stated he was told by police to call when she falls so they could help get her back into bed. Stated this time they just called EMS and took her to the hospital without giving him the option. did not notify [facility] of her change in status. 1523 Called Kristen with [employer] at [phone] whom stated she will alert the financial solutions advisor staff to come to the hospital to assess the situation and speak to the . ED provider updated-susi
--- NOTE | 2024-11-07 15:56 | ED_ITS ---
HPI - General Adult General Chief complaint: Fall Stated complaint: fall Time Seen by Provider: 11/07/24 15:07 History of Present Illness HPI narrative: [age] old female presents emergency department for evaluation after having a ground level fall. Patient is currently on hospice care and is at home. Patient had a ground level fall that was unwitnessed by the as he was out of the home. When he came back he found her leg against the coffee table. Patient is basically nonverbal at baseline. Patient had initially declined to have her left foot amputated and did enter hospice care. states that the patient would declined any neurosurgical or maxillofacial surgery. I did discuss the options of ordering head imaging to evaluate for a brain bleed and at this time states the patient would prefer not to have additional surgery so at this point he prefers not to do any additional imaging. Related Data Home Medications ?Medication ?Instructions ?Recorded ?Confirmed ?Last Taken ?Type atorvastatin 10 mg tablet 10 mg PO DAILY 05/04/24 10/18/24 Unknown History metformin 500 mg tablet 500 mg PO BID 05/04/24 10/18/24 Unknown History dapagliflozin propanediol 5 mg 5 mg PO DAILY 10/18/24 10/18/24 Unknown History tablet (Farxiga) Allergies Allergy/AdvReac Type Severity Reaction Status Date / Time No Known Allergies Allergy Verified 05/13/23 14:13 Review of Systems Review of Systems: All systems reviewed & are unremarkable except as noted in HPI and below PMFSH Past Medical History Medical History Aortic ectasia, thoracic ascending thoracic aortic ectasia measuring up to 4.[address] scan on 09/21/2024 Hard of hearing 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 Code status: Full code. Smoking status: Never smoker Second hand tobacco smoke exposure: Yes Alcohol intake: never Substance use: never Substance use type: does not use Do You Feel Safe in your Home?: Yes Lack of Transportation: No Lack of Food: Never True Current Housing: I Have Housing Concerned About Future Housing: No Difficulty Paying Gas/Electric Bills: No Difficulty Paying for Meds: No Currently Unemployed: No Education: High School Diploma/GED Difficulty w/ Childcare or Family Care: No Living arrangements: with family Additional living arrangements comments: Lives with spouse in [place]. Occupation/Education: unemployed Spiritual care concerns: No Exam Narrative: APPEARANCE: Awake but nonverbal HEAD: normocephalic, atraumatic. EYES: PERRLA/EOMI, conjunctivae clear. NOSE: Normal no drainage EARS:TMS clear with good light reflex. THROAT: Pharynx clear, no exudate. NECK: Supple. No adenopathy, no masses. RESPIRATORY: Airway patent, respirations nonlabored. Clear to auscultation bilaterally, no rales, rhonchi, wheezing. CARDIOVASCULAR: Regular rate and rhythm without murmurs rubs or gallops. ABDOMINAL: Soft, nontender, nondistended, normal bowel sounds MUSCULOSKELETAL: Moves all extremities. Strength/ROM intact, No edema, No calf tenderness. NEURO: Alert but nonverbal SKIN: Chronic wound to bottom of left foot Course Vital Signs Vital signs: Vital Signs Temperature 98.4 F 11/07/24 15:12 Pulse Rate 111 H 11/07/24 15:12 Respiratory Rate 16 11/07/24 15:12 Blood Pressure 116/82 11/07/24 15:12 Pulse Oximetry 96 11/07/24 15:12 Oxygen Delivery Room Air 11/07/24 15:12 Temperature 98.4 F 11/07/24 15:12 Pulse Rate 110 H 11/07/24 17:48 Respiratory Rate 14 11/07/24 17:48 Blood Pressure 106/78 11/07/24 17:48 Pulse Oximetry 100 11/07/24 17:48 Oxygen Delivery Room Air 11/07/24 15:12 Medical Decision Making MDM Narrative Medical decision making narrative: 64 old female presented to the emergency department for evaluation after having a ground level fall. Be tox evaluated the patient emergency department. Patient is family confirms the patient is DNI DNR and comfort care. They declined any further workup and patient will be transferred to home by ambulance. Differential Diagnosis Differential Diagnosis: Subdural hematoma, subarachnoid hemorrhage, facial fracture, cervical spine fracture Vital Signs Vital Signs: Vital Signs Temperature 98.4 F 11/07/24 15:12 Pulse Rate 111 H 11/07/24 15:12 Respiratory Rate 16 11/07/24 15:12 Blood Pressure 116/82 11/07/24 15:12 Pulse Oximetry 96 11/07/24 15:12 Oxygen Delivery Room Air 11/07/24 15:12 Temperature 98.4 F 11/07/24 15:12 Pulse Rate 110 H 11/07/24 17:48 Respiratory Rate 14 11/07/24 17:48 Blood Pressure 106/78 11/07/24 17:48 Pulse Oximetry 100 11/07/24 17:48 Oxygen Delivery Room Air 11/07/24 15:12 Discharge Plan Discharge Clinical Impression: Facial injury, Head injury Patient Disposition: Hospice - Home Condition: Guarded Prognosis Additional Instructions: Continue with hospice care at home Patient Language: E[place] Prescriptions: No Action (DME) [employer] 14 Day Sensor Kit See Rx Instructions .Route Qty: 1 3RF Rx Instructions: As directed metformin 500 mg tablet 500 mg PO BID Rx Instructions: TAKE 1 TABLET BY MOUTH TWICE DAILY WITH A MEAL atorvastatin 10 mg tablet 10 mg PO DAILY Rx Instructions: TAKE 1 TABLET BY MOUTH EVERY DAY dapagliflozin propanediol [Farxiga] 5 mg tablet 5 mg PO DAILY erythromycin 5 mg/gram (0.5 %) Ointment 1 applic EACH EYE Q4HWA Qty: 3.5 0RF amoxicillin-pot clavulanate 875-125 mg tablet 1 tablet PO Q12H Qty: 74 0RF doxycycline hyclate 100 mg Tablet 100 mg PO Q12HR Qty: 74 0RF metoprolol succinate 200 mg tablet extended release 24 hr 200 mg PO DAILY Qty: 90 1RF Follow-up/Referrals: Cornelio Valdez MD [Primary Care Provider] -
--- NOTE | 2024-11-07 16:20 | PC.NURSE ---
[facility] nursing at bedside speaking with pt. and pt. at bedside.
--- NOTE | 2024-11-07 16:42 | PC.NURSE ---
Blood in mouth washed out with water and mouth swab per MD Granda.
--- NOTE | 2024-11-07 16:42 | PC.NURSE ---
Per hospice clinical marketer with [facility], pt. will be d/c home and hospice clinical marketer will make a home visit today. MD Granda and at bedside aware of plan.
--- NOTE | 2024-11-07 16:49 | PCCCNOTE ---
Zeferino, a nurse was [facility] was here and spoke with the . Zeferino stated he was agreeable to updating her code status to comfort measures only which was completed. Stated ativan and morphine will be ordered for home, is agreeable to have the pt transported back home and placed safely in the hospital bed they provided in the home. Stated they are new to services and a home visit would be completed after the pt arrives to assess their surroundings and any further needs noted. ED provider updated.-susi
[2024-11-07] MEDS: MORPHINE SULFATE (*CRX) 4 MG/ML INJ 5 MG IV PUSH (17:47)
[2024-11-07 17:48] VITALS: BP 106/78; PULSE 110; RESP 14; O2SAT 100
--- NOTE | 2024-11-07 17:55 | PC.NURSE ---
Report given to wilner [facility]. All questions answered.
--- NOTE | 2024-11-07 17:55 | PC.NURSE ---
Per MD Granda verbal order. 5mg morphine administered IM into her L. deltoid d/t pt. not having IV access.
== END 2024-11-07 18:05 | disposition hospice, home (50) ==
PROVIDERS: Emergency Provider Emergency Medicine; PCP Family Medicine
DX: S09.90XA Unspecified injury of head, initial encounter (principal); W18.30XA Fall on same level, unspecified, initial encounter; I10 Essential (primary) hypertension; E11.9 Type 2 diabetes mellitus without complications; E78.5 Hyperlipidemia, unspecified
CPT/HCPCS: 96374; 99284; J2270; L0140